=== PATIENT | male | born 1970 | race Caucasian/White ===

== ENCOUNTER 2021-01-21 00:28 | Emergency (ER) | payer BC, SELFPAY ==
--- NOTE | ~2021-01-21 | XR_ITS ---
EXAMINATION: XR hip LT 2V w AP pelvis INDICATION: Left hip pain TECHNIQUE: AP view of the pelvis and two views of the left hip are obtained. COMPARISON: None available FINDINGS: Bone alignment is normal. There is no fracture. The soft tissues are unremarkable. IMPRESSION: 1. No acute osseous abnormality. Reviewed, dictated and finalized at location A. [employer] SCI[employer] SPECIALIST
[2021-01-21 00:30] VITALS: BP 133/79; PULSE 77; RESP 16; TEMP 36.4; O2SAT 98
[2021-01-21 01:31] VITALS: BP 138/79; PULSE 73; RESP 18; O2SAT 100
--- NOTE | 2021-01-21 01:34 | ED.GENADULT ---
HPI - General Adult General Chief complaint: Extremity Injury, Lower Stated complaint: partial dislocated hip Time Seen by Provider: 01/21/21 01:02 History of Present Illness HPI narrative: Patient is a 51-year-old gentleman who presents the emergency department with chief complaint of left hip pain. Patient reports that he has history of fibromyalgia and reports that he started having pain in his left hip and left gluteal area that shoots down his leg. The patient states that he saw a chiropractor was manipulated and was told that his hip was partially dislocated. Patient denies bowel or bladder dysfunction denies paresthesias the patient reports the pain is worse with movement and improved with rest. Related Data Allergies Allergy/AdvReac Type Severity Reaction Status Date / Time No Known Allergies Allergy Verified 01/21/21 00:35 Review of Systems Review of Systems: A 10 system review of systems was completed on the patient and is negative except for what is stated in the HPI. Nursing and ancillary documentation was reviewed. Exam Narrative: GENERAL: Well-appearing, well-nourished, and in no acute distress. HEAD: Normocephalic, atraumatic. EYES: PERRLA and EOMI. ENT: Nares clear, no rhinorrhea or epistaxis. Mucous membranes moist. NECK: Supple. CHEST: Clear to auscultation. No respiratory distress. HEART: Regular rate and rhythm. No murmur heard. Normal peripheral pulses. ABDOMEN: Soft, nontender, nondistended, normal active bowel sounds. EXTREMITIES: Normal range of motion. No edema. There is tenderness to palpation of the left SI joint. There is no saddle anesthesia there is no foot drop SKIN: Warm, dry, no rash. NEURO: No focal deficits. Alert and oriented x3. PSYCH: Normal mood and affect. Course Course Emergency Course: Hip x-ray shows no evidence of fracture Vital Signs Vital signs: Vital Signs Temperature 36.4 C L 01/21/21 00:30 Pulse Rate 77 01/21/21 00:30 Respiratory Rate 16 01/21/21 00:30 Blood Pressure 133/79 01/21/21 00:30 Pulse Oximetry 98 01/21/21 00:30 Temperature 36.4 C L 01/21/21 00:30 Pulse Rate 73 01/21/21 01:31 Respiratory Rate 18 01/21/21 01:31 Blood Pressure 138/79 01/21/21 01:31 Pulse Oximetry 100 01/21/21 01:31 Medical Decision Making Vital Signs Vital Signs: Vital Signs Temperature 36.4 C L 01/21/21 00:30 Pulse Rate 77 01/21/21 00:30 Respiratory Rate 16 01/21/21 00:30 Blood Pressure 133/79 01/21/21 00:30 Pulse Oximetry 98 01/21/21 00:30 Temperature 36.4 C L 01/21/21 00:30 Pulse Rate 73 01/21/21 01:31 Respiratory Rate 18 01/21/21 01:31 Blood Pressure 138/79 01/21/21 01:31 Pulse Oximetry 100 01/21/21 01:31 Discharge Plan Discharge Clinical Impression: Acute pain of left hip, Sciatica Patient Disposition: Home, Self-Care Condition: Stable Instructions: Antibiotic Form, Sciatica (ED), Hip Pain (ED) Prescriptions: New cyclobenzaprine 10 mg tablet 10 mg PO TID PRN (Reason: muscle spasm) Qty: 21 RF: 0 methylprednisolone [Medrol (Refugio)] 4 mg tablets,dose pack See Rx Instructions PO .COMPLEX Qty: 21 RF: 0 hydrocodone-acetaminophen 5-325 mg tablet 1 tablet PO Q6H PRN (Reason: pain) 3 Days Qty: 12 RF: 0 Follow-up/Referrals: Andre,Leidy Rodriguez APRN [Primary Care Provider] - Time of Disposition: 01:48
[2021-01-21] MEDS: KETOROLAC 30 MG/ML VIAL (*BKC) IM (01:59)
[2021-01-21] MEDS: methylPREDNISolone SOD SUCC 125 MG VIAL IM (01:59)
[2021-01-21] MEDS: HYDROmorphone HCL INJ (*CRX) 1 MG/ML SYR IM (01:59)
[2021-01-21] MEDS: ORPHENADRINE CITRATE 100 MG TABLET.ER PO (02:00)
== END 2021-01-21 02:08 | disposition home or self-care (01) ==
PROVIDERS: Emergency Provider Emergency Medicine; PCP Nurse Practitioner Family
DX: M54.32 Sciatica, left side (principal); M79.7 Fibromyalgia
CPT/HCPCS: 73502; 96372; 99284; A9270; J1170; J1885; J2930

== ENCOUNTER 2021-01-23 13:19 | Emergency (ER) | payer BC, SELFPAY ==
[2021-01-23 13:49] VITALS: BP 125/81; PULSE 87; RESP 14; TEMP 36.6; O2SAT 99
--- NOTE | 2021-01-23 16:05 | ED.BACK ---
HPI - Back Pain/Injury General Chief Complaint: Back Pain/Injury Stated Complaint: L Hip and back Pain Time Seen by Provider: 01/23/21 15:52 History of Present Illness HPI Narrative: 51-year-old male presents to the emergency department for evaluation of persistent left hip and leg pain. Patient was evaluated emerge department on the for the same issue. Patient states a few days ago he began having increased left hip pain that radiated down his left leg. Patient did have follow-up with his chiropractor at this time. Patient has history of sciatica and thought that this was most likely sciatica. When he had follow-up with his chiropractor he was told that his hip was partially dislocated . In the emerge department patient was treated with cyclobenzaprine and [place] for pain control. Patient states he has been taking these medications and has had some improvement. Patient reports he also had additional follow-up with his primary care physician but she is unable to do steroid injections. Patient does have follow-up scheduled with orthopedics on 06 February. Patient return to the emerge department today complaining of persistent left hip pain and muscle spasm. Patient denies any numbness of the left leg. Patient denies any perineal numbness. Patient denies any loss of bowel control. Patient denies any difficulty starting urination. Patient's primary complaint is left hip pain and left lower leg spasms. Patient does have history of fibromyalgia. Related Data Allergies Allergy/AdvReac Type Severity Reaction Status Date / Time No Known Allergies Allergy Verified 01/23/21 15:20 Review of Systems Review of Systems: CONSTITUTIONAL: Denies fever, chills, or sweats. EYES: Denies visual changes, redness, or discharge. ENT: Denies rhinorrhea, congestion, sore throat, or otalgia. CARDIOVASCULAR: Denies chest pain, palpitations, or edema. RESPIRATORY: Denies cough or dyspnea. GASTROINTESTINAL: Denies abdominal pain, nausea, vomiting, or diarrhea. GENITOURINARY: Denies dysuria or hematuria. SKIN: Denies rash or itching. MUSCULOSKELETAL: Left lower back pain that radiates to his left hip NEUROLOGIC: Denies headache, numbness, or weakness. Does report increased tingling and muscle spasm of the left lower leg. PSYCHIATRIC: Denies anxiety or depression. [facility] Family History Family History (System 01/23/21 @ 07:53 by Liya Erazo) Mother Family history of rheumatoid arthritis Family history of diabetes mellitus in first degree relative Other Family history of cardiovascular disease Social History Social History (System 01/23/21 @ 07:53 by Liya Erazo) Smoking status: Never smoker Alcohol intake: current Exam Narrative: APPEARANCE: Well appearing, no pain in distress, well-nourished. Head normocephalic atraumatic. EYES: PERRLA/EOMI, conjunctivae very clear. NECK: Supple. No adenopathy, no masses. RESPIRATORY: Airway patent, respirations nonlabored. Clear to auscultation bilaterally, no rales, rhonchi, wheezing. CARDIOVASCULAR: Regular rate and rhythm without murmurs rubs or gallops. ABDOMINAL: Soft, nontender, nondistended, no hepatosplenomegally MUSCULOSKELETAl: Moves all extremities. Strength/ROM intact, No edema, No calf tenderness. Range of motion of left leg limited secondary to pain. NEURO: Alert. Cranial nerves II through XII intact. Good gait. Good coordination. Neurologically intact with no numbness SKIN: Warm, dry. Normal Color PSYCHIATRIC: Normal affect/mood, normal interaction with parents. Course Course Emergency Course: Patient was updated on the diagnosis and treatment plan. Patient was advised to continue taking his cyclobenzaprine and his [place]. Patient was advised not to take excessive Tylenol along with his hydrocodone. Patient has previously been on gabapentin so I will trial this medication for him. Patient was in agreement with this. Patient will also be given a Medrol Dosepak since he fell
[2021-01-23] MEDS: GABAPENTIN 300 MG CAPSULE PO (16:39)
== END 2021-01-23 16:55 | disposition home or self-care (01) ==
PROVIDERS: Emergency Provider Emergency Medicine; PCP Nurse Practitioner Family
DX: M62.838 Other muscle spasm (principal); M54.32 Sciatica, left side
CPT/HCPCS: 99283; A9270

== ENCOUNTER 2021-07-17 10:51 | Outpatient (RCR) | payer OTHER, SELFPAY ==
[2021-07-17] MEDS: ACETAMINOPHEN 325 MG TABLET 650 MG PO (12:51)
[2021-07-17] MEDS: diphenhydrAMINE HCl CAP 25 MG CAPSULE PO (12:52)
[2021-07-17] MEDS: FAMOTIDINE 20 MG TABLET PO (12:52)
[2021-07-17 12:53] VITALS: BP 116/68; PULSE 76; RESP 20; TEMP 36.4; O2SAT 97
[2021-07-17] MEDS: BEBTELOVIMAB 175 MG/2 ML VIAL IV PUSH (13:12)
[2021-07-17 13:54] VITALS: BP 120/80; PULSE 72; RESP 20; O2SAT 98
== END 2021-07-17 16:00 ==
LOC: AMCINF 10:51
PROVIDERS: PCP Clinical Nurse Specialist; Referring Provider Clinical Nurse Specialist; Visit Provider Internal Medicine Hematology & Oncology
DX: U07.1 COVID-19 (principal)
CPT/HCPCS: A9270; M0222; Q0222

== ENCOUNTER 2021-07-23 13:21 | Outpatient (CLI) | payer OTHER, SELFPAY ==
--- NOTE | ~2021-07-23 | US_ITS ---
EXAMINATION: US soft tissue groin LT DATE: 07/23/2021 14:25 INDICATION: Left lower quadrant abdominal pain. Prior left inguinal hernia repair. TECHNIQUE: Multiple grayscale and Doppler ultrasound images of the left inguinal region of concern we re obtained. COMPARISON: None FINDINGS/IMPRESSION: Small amount of fat is seen within the left inguinal canal which does not appear to significantly ken nge with Valsalva. Differential would include lipomatosis within the inguinal canal or small fat-cont aining left inguinal hernia, either residual post prior repair or recurrent. Reviewed, dictated and finalized at location A.
== END 2021-07-23 13:22 | disposition home or self-care (01) ==
LOC: ANHIMG 13:24
PROVIDERS: PCP Clinical Nurse Specialist; Visit Provider Surgery
DX: R10.32 Left lower quadrant pain (principal); K40.90 Unilateral inguinal hernia, without obstruction or gangrene, not specified as recurrent
CPT/HCPCS: 76882

== ENCOUNTER 2021-08-02 09:04 | Outpatient (CLI) | payer OTHER, SELFPAY ==
--- NOTE | 2021-08-02 11:15 | NEURO_ITS ---
Impression: # Complains of restless legs. # Normal nerve conduction study including F-waves. # Normal needle/EMG exam without myotonia, myopathic pattern or fibs. # Clinical correlation recommended. Nerve Conduction Studies Anti Sensory Summary Table Stim Site NR Peak (ms) P-T Amp (?V) Site1 Site2 Delta-P (ms) Dist (cm) Jesse (m/s) Left Sup Fibular Anti Sensory (Ant Lat Mall) 14 cm 3.4 26.1 14 cm Ant Lat Mall 3.4 16.0 47 Right Sup Fibular Anti Sensory (Ant Lat Mall) 14 cm 3.6 6.1 14 cm Ant Lat Mall 3.6 16.0 44 Left Sural Anti Sensory (Lat Mall) Calf 4.0 12.8 Calf Lat Mall 4.0 16.0 40 Right Sural Anti Sensory (Lat Mall) Calf 4.0 18.7 Calf Lat Mall 4.0 16.0 40 Motor Summary Table Stim Site NR Onset (ms) O-P Amp (mV) Site1 Site2 Delta-0 (ms) Dist (cm) Jesse (m/s) Left Peroneal Motor (Vastus Med) Ankle 4.5 1.2 Popit Ankle 8.0 41.0 51 Popit 12.5 1.1 Right Peroneal Motor (Vastus Med) Ankle 4.8 1.9 Popit Ankle 7.5 36.0 48 Popit 12.3 1.9 Left Tibial Motor (Abd Alva Brev) Ankle 4.7 5.1 Knee Ankle 8.0 39.0 49 Knee 12.7 3.8 Right Tibial Motor (Abd Alva Brev) Ankle 4.4 2.0 Knee Ankle 8.3 40.0 48 Knee 12.7 2.8 F Wave Studies NR F-Lat (ms) L-R F-Lat (ms) Left Peroneal (Mrkrs) (EDB) 48.28 0.31 Right Peroneal (Mrkrs) (EDB) 48.59 0.31 Left Tibial (Mrkrs) (Abd Hallucis) 48.99 0.86 Right Tibial (Mrkrs) (Abd Hallucis) 49.84 0.86 EMG Side Muscle Nerve Root Ins Act Fibs Amp Dur Recrt Comment Right AntTibialis Dp Br Fibular L4-5 Nml Nml Nml Nml Nml Right Gastroc Tibial S1-2 Nml Nml Nml Nml Nml Right Fibularis Long Sup Br Fibular L5-S1 Nml Nml Nml Nml Nml Right Flex Dig Long Tibial L5-S2 Nml Nml Nml Nml Nml Right Ext Dig Brev Dp Br Fibular L5, S1 Nml Nml Nml Nml Nml Left AntTibialis Dp Br Fibular L4-5 Nml Nml Nml Nml Nml Left Gastroc Tibial S1-2 Nml Nml Nml Nml Nml Left Fibularis Long Sup Br Fibular L5-S1 Nml Nml Nml Nml Nml Left Flex Dig Long Tibial L5-S2 Nml Nml Nml Nml Nml Left Ext Dig Brev Dp Br Fibular L5, S1 Nml Nml Nml Nml Nml Right ExtHallLong Dp Br Fibular L5, S1 Nml Nml Nml Nml Nml Right Ext Dig Long Dp Br Fibular L5-S1 Nml Nml Nml Nml Nml Right QuadratusFem QuadFemoris L4-5, S1 Nml Nml Nml Nml Nml Left ExtHallLong Dp Br Fibular L5, S1 Nml Nml Nml Nml Nml Left Ext Dig Long Dp Br Fibular L5-S1 Nml Nml Nml Nml Nml Left QuadratusFem QuadFemoris L4-5, S1 Nml Nml Nml Nml Nml MTDD
== END 2021-08-02 09:05 | disposition home or self-care (01) ==
LOC: ANHNEURO 09:05
PROVIDERS: PCP Clinical Nurse Specialist; Visit Provider Clinical Nurse Specialist
DX: G25.81 Restless legs syndrome (principal)
CPT/HCPCS: 72192; 95886; 95910

== ENCOUNTER 2021-08-02 14:28 | Outpatient (CLI) | payer OTHER, SELFPAY ==
--- NOTE | ~2021-08-02 | CT_ITS ---
EXAMINATION: CT pelvis wo con DATE: 08/02/2021 14:58 INDICATION: Left lower quadrant pain TECHNIQUE: Computed tomography (CT) of the pelvis was performed without intravenous contrast. The dos e-length product (DLP) was 483.87 mGy-cm. Automated exposure control and iterative reconstruction gregg hnique were employed. COMPARISON: None FINDINGS: There are changes of prior left inguinal hernia repair. No recurrent hernia is identified. There are no pathologically enlarged pelvic lymph nodes. There is no free intraperitoneal gas or evid ence of bowel obstruction. There is mild lumbar spondylosis. IMPRESSION: 1. No CT correlate for the patient's symptoms. Reviewed, dictated and finalized at location F.
== END 2021-08-02 14:29 | disposition home or self-care (01) ==
PROVIDERS: PCP Clinical Nurse Specialist; Visit Provider Surgery
DX: R10.32 Left lower quadrant pain (principal)
CPT/HCPCS: 72192

== ENCOUNTER 2021-09-10 09:56 | Outpatient (CLI) | payer OTHER, SELFPAY ==
[2021-09-10 11:05] LABS: Basophils Absolute Auto 0.1 K/mm3 (0.0-0.1); Basophils Percent Auto 0.4 % (0.2-1.2); Eosinophils Absolute Auto 0.2 K/mm3 (0-0.3); Eosinophils Percent Auto 1.6 % (0-4.4); Hematocrit 45.6 % (42.0-52.0); Immature Granulocyte Absolute 0.05 K/mm3 (0.00-0.031); Immature Granulocyte Percent A 0.4 % (0-0.5); Lymphocytes Absolute Auto 5.02 K/mm3 (0.9-3.2); Lymphocytes Percent Auto 42.3 % (18.3-44.2); Mean Corpuscular HGB Conc 32.9 g/dl (32-36); Mean Corpuscular Volume 100.2 fl (80-100); Monocytes Absolute Auto 0.8 K/mm3 (0.1-0.6); Neutrophils Absolute Auto 5.7 K/mm3 (1.3-6.7); Neutrophils Percent Auto 48.3 % (45.5-73.1); Platelet Count Result 284 k/mm3 (150-375); Red Blood Count 4.55 M/mm3 (4.6-6.20); Red Cell Distribution Width 14.1 % (11.5-14.5); White Blood Count 11.9 K/mm3 (4.5-10.0)
[2021-09-10 11:17] LABS: Alanine Aminotransferase 13 U/L (6-50); Albumin Level 4.3 g/dL (3.5-5.1); Alkaline Phosphatase 47 U/L (38-126); Anion Gap 8 mmol/L (8-16); Aspartate Amino Transferase 22 U/L (17-59); Bilirubin,Total 0.3 mg/dL (0.2-1.3); Blood Urea Nitrogen 17 mg/dL (9-20); CRP < 0.5 mg/dL (<1.0); Calcium 9.1 mg/dL (8.4-10.2); Carbon Dioxide 29 mmol/L (22-30); Chloride 98 mmol/L (98-107); Cholesterol 186 mg/dL (0-200); Estimated Glomerular Filt Rate > 60; Glucose 92 mg/dL (65-110); HDL Direct 48 mg/dL; Magnesium 2.2 mg/dL (1.6-2.3); Sodium 135 mmol/L (137-145); Triglycerides 170 mg/dL (<150)
[2021-09-10 11:31] LABS: Iron 92 ug/dL (49-181)
[2021-09-10 11:37] LABS: Rheumatoid Factor < 8.6 IU/ML (<12)
[2021-09-10 11:37] LABS: LDL Cholesterol Direct 86 mg/dL
[2021-09-10 11:41] LABS: Percent Iron Saturation 25 % (20-50)
[2021-09-10 12:21] LABS: Folic Acid 9.6 ng/mL (2.76->20)
[2021-09-17 09:30] LABS: ANA Cascade Screen Negative (Negative)
== END 2021-09-10 09:57 | disposition home or self-care (01) ==
LOC: ANHLAB 09:58
PROVIDERS: PCP Clinical Nurse Specialist; Visit Provider Clinical Nurse Specialist
DX: D50.9 Iron deficiency anemia, unspecified (principal); M79.10 Myalgia, unspecified site; Z13.220 Encounter for screening for lipoid disorders; G25.81 Restless legs syndrome; D64.9 Anemia, unspecified
CPT/HCPCS: 36415; 80053; 80061; 82607; 82728; 82746; 83540; 83550; 83735; 85025; 86038; 86140; 86430

== ENCOUNTER 2021-12-21 08:12 | Outpatient (CLI) | payer OTHER, SELFPAY ==
[2021-12-21 18:18] LABS: Iron 63 ug/dL (49-181)
[2021-12-21 18:25] LABS: Anion Gap 10 mmol/L (8-16); Blood Urea Nitrogen 16 mg/dL (9-20); Carbon Dioxide 27 mmol/L (22-30); Chloride 102 mmol/L (98-107); Estimated Glomerular Filt Rate > 60; Glucose 92 mg/dL (65-110); Potassium 4.3 mmol/L (3.4-5.0); Sodium 139 mmol/L (137-145)
[2021-12-21 18:28] LABS: Percent Iron Saturation 18 % (20-50)
[2021-12-21 18:33] LABS: Basophils Absolute Auto 0.1 K/mm3 (0.0-0.1); Basophils Percent Auto 0.6 % (0.2-1.2); Eosinophils Absolute Auto 0.3 K/mm3 (0-0.3); Eosinophils Percent Auto 2.3 % (0-4.4); Immature Granulocyte Absolute 0.04 K/mm3 (0.00-0.031); Immature Granulocyte Percent A 0.4 % (0-0.5); Lymphocytes Absolute Auto 3.39 K/mm3 (0.9-3.2); Lymphocytes Percent Auto 31.6 % (18.3-44.2); Mean Corpuscular HGB Conc 32.6 g/dl (32-36); Mean Corpuscular Hemoglobin 32.8 pg (26-34); Mean Corpuscular Volume 100.7 fl (80-100); Mean Platelet Volume 9.5 fl (7.4-10.4); Monocytes Absolute Auto 0.8 K/mm3 (0.1-0.6); Monocytes Percent Auto 7.5 % (2.6-8.5); Neutrophils Absolute Auto 6.2 K/mm3 (1.3-6.7); Neutrophils Percent Auto 57.6 % (45.5-73.1); Platelet Count Result 286 k/mm3 (150-375); Red Blood Count 4.57 M/mm3 (4.6-6.20); Red Cell Distribution Width 13.7 % (11.5-14.5); White Blood Count 10.7 K/mm3 (4.5-10.0)
[2021-12-26 13:44] LABS: Testosterone Free 72.9 pg/mL (35.0-155.0); Testosterone Total 688 ng/dL (250-1100)
== END 2021-12-21 08:13 | disposition home or self-care (01) ==
LOC: ANHGOSHLAB 08:14
PROVIDERS: PCP Internal Medicine; Visit Provider Clinical Nurse Specialist
DX: R53.83 Other fatigue (principal); D72.829 Elevated white blood cell count, unspecified; D50.9 Iron deficiency anemia, unspecified; M79.7 Fibromyalgia
CPT/HCPCS: 36415; 80048; 82607; 82728; 83540; 83550; 84402; 84403; 84443; 85025

== ENCOUNTER 2022-04-29 15:43 | Outpatient (CLI) | payer OTHER, SELFPAY ==
[2022-04-29 16:53] LABS: Basophils Percent Auto 0.6 % (0.2-1.2); Eosinophils Absolute Auto 0.2 K/mm3 (0-0.3); Eosinophils Percent Auto 3.4 % (0-4.4); Hematocrit 46.2 % (42.0-52.0); Immature Granulocyte Absolute 0.01 K/mm3 (0.00-0.031); Immature Granulocyte Percent A 0.1 % (0-0.5); Lymphocytes Absolute Auto 3.27 K/mm3 (0.9-3.2); Lymphocytes Percent Auto 48.6 % (18.3-44.2); Mean Corpuscular HGB Conc 34.6 g/dl (32-36); Mean Corpuscular Hemoglobin 32.7 pg (26-34); Mean Corpuscular Volume 94.5 fl (80-100); Mean Platelet Volume 8.6 fl (7.4-10.4); Monocytes Absolute Auto 0.6 K/mm3 (0.1-0.6); Monocytes Percent Auto 8.2 % (2.6-8.5); Neutrophils Absolute Auto 2.6 K/mm3 (1.3-6.7); Neutrophils Percent Auto 39.1 % (45.5-73.1); Platelet Count Result 266 k/mm3 (150-375); Red Blood Count 4.89 M/mm3 (4.6-6.20); Red Cell Distribution Width 12.9 % (11.5-14.5); White Blood Count 6.7 K/mm3 (4.5-10.0)
[2022-04-29 17:01] LABS: Alanine Aminotransferase 21 U/L (6-50); Albumin Level 4.8 g/dL (3.5-5.1); Alkaline Phosphatase 53 U/L (38-126); Anion Gap 6 mmol/L (8-16); Aspartate Amino Transferase 32 U/L (17-59); Bilirubin,Total 0.7 mg/dL (0.2-1.3); Blood Urea Nitrogen 18 mg/dL (9-20); Calcium 9.1 mg/dL (8.4-10.2); Carbon Dioxide 31 mmol/L (22-30); Chloride 102 mmol/L (98-107); Estimated Glomerular Filt Rate > 60; Glucose 100 mg/dL (65-110); Potassium 4.2 mmol/L (3.4-5.0); Sodium 139 mmol/L (137-145)
== END 2022-04-29 15:44 | disposition home or self-care (01) ==
LOC: ANHLAB 15:45
PROVIDERS: PCP Internal Medicine; Visit Provider Clinical Nurse Specialist
DX: D72.829 Elevated white blood cell count, unspecified (principal)
CPT/HCPCS: 36415; 80053; 85025

== ENCOUNTER 2023-04-01 08:52 | Outpatient (CLI) | payer OTHER, SELFPAY ==
[2023-04-01 14:22] LABS: Basophils Absolute Auto 0.1 K/mm3 (0.0-0.1); Basophils Percent Auto 0.6 % (0.2-1.2); Eosinophils Absolute Auto 0.2 K/mm3 (0-0.3); Eosinophils Percent Auto 1.9 % (0-4.4); Hematocrit 48.5 % (42.0-52.0); Hemoglobin 15.8 g/dL (14.0-18.0); Immature Granulocyte Absolute 0.02 K/mm3 (0.00-0.031); Immature Granulocyte Percent A 0.3 % (0-0.5); Lymphocytes Absolute Auto 3.24 K/mm3 (0.9-3.2); Lymphocytes Percent Auto 41.6 % (18.3-44.2); Mean Corpuscular HGB Conc 32.6 g/dl (32-36); Mean Corpuscular Hemoglobin 32.1 pg (26-34); Mean Corpuscular Volume 98.6 fl (80-100); Mean Platelet Volume 9.2 fl (7.4-10.4); Monocytes Absolute Auto 0.7 K/mm3 (0.1-0.6); Monocytes Percent Auto 8.9 % (2.6-8.5); Neutrophils Absolute Auto 3.6 K/mm3 (1.3-6.7); Neutrophils Percent Auto 46.7 % (45.5-73.1); Platelet Count Result 289 k/mm3 (150-375); Red Blood Count 4.92 M/mm3 (4.6-6.20); Red Cell Distribution Width 13.2 % (11.5-14.5); White Blood Count 7.8 K/mm3 (4.5-10.0)
[2023-04-01 14:44] LABS: Alanine Aminotransferase 16 U/L (6-50); Albumin Level 4.7 g/dL (3.5-5.1); Alkaline Phosphatase 64 U/L (38-126); Anion Gap 9 mmol/L (8-16); Aspartate Amino Transferase 68 U/L (17-59); Bilirubin,Total 0.6 mg/dL (0.2-1.3); Blood Urea Nitrogen 14 mg/dL (9-20); Calcium 9.6 mg/dL (8.4-10.2); Carbon Dioxide 28 mmol/L (22-30); Chloride 100 mmol/L (98-107); Cholesterol 258 mg/dL (0-200); Estimated Glomerular Filt Rate > 60; Glucose 96 mg/dL (65-110); HDL Direct 34 mg/dL; Magnesium 2.3 mg/dL (1.6-2.3); Potassium 4.1 mmol/L (3.4-5.0); Sodium 137 mmol/L (137-145); Triglycerides 161 mg/dL (<150)
[2023-04-01 14:54] LABS: Iron 113 ug/dL (49-181)
[2023-04-01 14:57] LABS: LDL Cholesterol Direct 154 mg/dL; Transferrin 297 mg/dL (206-381)
[2023-04-01 15:14] LABS: Percent Iron Saturation 32 % (20-50)
[2023-04-01 15:25] LABS: Free T4 Free Thyroxine 1.06 ng/mL (0.78-2.19)
[2023-04-01 15:45] LABS: Hemoglobin A1C 6.1 % (<5.7)
[2023-04-01 15:52] LABS: Vitamin D 25 Hydroxy > 126.0 ng/mL
== END 2023-04-01 08:53 | disposition home or self-care (01) ==
LOC: ANHGOSHLAB 08:54
PROVIDERS: PCP Internal Medicine; Visit Provider Family Medicine
DX: D64.9 Anemia, unspecified (principal); E55.9 Vitamin D deficiency, unspecified; R53.83 Other fatigue; R73.9 Hyperglycemia, unspecified; Z13.220 Encounter for screening for lipoid disorders; Z12.5 Encounter for screening for malignant neoplasm of prostate; R25.2 Cramp and spasm
CPT/HCPCS: 36415; 80053; 80061; 82306; 82728; 83036; 83540; 83550; 83735; 84153; 84439; 84443; 84466; 85025; G0103

== ENCOUNTER 2023-09-24 00:39 | Day surgery (SDC) | payer OTHER, SELFPAY ==
[2023-06-17 10:07] VITALS: BMI 26.6
[2023-09-04 13:49] VITALS: BMI 26.6
[2023-09-24 09:27] VITALS: BP 133/94; PULSE 102; RESP 20; TEMP 36.2; O2SAT 99; BMI 25.3
--- NOTE | 2023-09-24 09:45 | SUR.PREOP ---
Patient stated he has been taking Amoxicillin for 1 week due to jaw infection pending surgery. MD aware and okay to proceed with scheduled procedure.
[2023-09-24] MEDS: LACTATED RINGERS 1,000 ML 150 ML IV CONT (09:52)
--- NOTE | 2023-09-24 10:11 | WPDANESEPPF ---
Anes - Initial Pre Proc Eval Procedure: Operation Date: 09/24/23 10:30 Proposed Procedures p Screening Colonoscopy - Sajan Jin MD Date/Time: 09/24/23 10:11 Surgeon: Sajan Jin MD Pre Op Diagnosis: Screening neoplasm of colon Patient Data Age: 53 Gender: M Height: 1.75 m Weight: 77.9 kg Last Vital Signs Temp 97.2 F L 09/24/23 09:27 Pulse 102 H 09/24/23 09:27 Resp 20 09/24/23 09:27 BP 133/94 H 09/24/23 09:27 Pulse Ox 99 09/24/23 09:27 O2 Del Method Room Air 09/24/23 09:27 Allergies Allergy/AdvReac Type Severity Reaction Status Date / Time No Known Allergies Allergy Verified 09/24/23 09:36 Home Medications Medication Instructions Recorded Confirmed Type multivitamin 1 tablet PO DAILY 06/18/21 09/19/23 History ubidecarenone-omega 3-vit E 25 1 cap PO DAILY 06/19/21 09/19/23 History mg-150 (90-60) mg-200 unit capsule (Co E-95-Mhulxfm E-Fish Oil) pregabalin 150 mg capsule (Lyrica) 150 mg PO BID 01/29/22 09/19/23 History cyclobenzaprine 5 mg tablet 10 mg PO TID PRN muscle spasm #40 04/18/22 09/19/23 Rx tabs pramipexole 0.125 mg tablet 0.375 mg PO .COMPLEX #270 tabs 04/02/23 09/19/23 Rx baclofen 10 mg tablet 10 mg PO HS PRN Pain 06/17/23 09/19/23 History eszopiclone 3 mg tablet (Lunesta) 3 mg PO QHS #30 tabs 07/30/23 09/19/23 Rx duloxetine 60 mg capsule,delayed 60 mg PO DAILY #90 caps 09/03/23 09/19/23 Rx release amoxicillin 500 mg-potassium 1 tablet PO DAILY acute recurrent 09/19/23 09/19/23 Rx clavulanate 125 mg tablet maxillary sinusitis #20 tabs (Augmentin) Patient hx anesthesia problems: none Family hx anesthesia problems: none Results Review: All pre-operative results and documents have been reviewed as part of the pre-operative evaluation. [facility] Past Medical History Medical History Abdominal hernia Anemia Arthritis BMI 26.0-26.9,adult COVID-19 Encounter to establish care Fatigue Fibromyalgia Genetic testing Herniated disc History of back problems Hypersomnia Iron deficiency anemia Left groin pain Leukocytosis Myalgia Restless leg syndrome Screening for lipoid disorders Surgical History Surgical History H/O adenoidectomy H/O hernia repair History of left inguinal hernia repair Family History Family History Mother Family history of rheumatoid arthritis Diabetes mellitus Father Asthma Hypertension Heart problem Other Family history of cardiovascular disease Social History Social History Smoking packs per day: 1 Smoking cigarettes per day: 20.0 Years smoked: 10 Smoking pack-years: 10.00 Smoking status: Former smoker Tobacco type: cigarettes Alcohol intake: current Substance use: current Substance use type: marijuana Other substance usage details: INTERMITTENT USE FOR INSOMNIA - GUMMIES Do You Feel Safe in your Home?: Yes Lack of Transportation: No Lack of Food: Never True Current Housing: I Have Housing Concerned About Future Housing: YES Difficulty Paying Gas/Electric Bills: YES Difficulty Paying for Meds: No Currently Unemployed: No Education: Associate Degree Difficulty w/ Childcare or Family Care: No Living arrangements: with family Occupation/Education: occupation 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
--- NOTE | 2023-09-24 11:05 | PM.HPGS ---
History of Present Illness History of Present Illness Consent: Risks, benefits, and alternatives have been discussed and questions answered. Patient agrees to proceed with procedure. Chief complaint: Screening neoplasm of colon Narrative: Vega Nj is a 53 year old male here for first screening colonoscopy Review of Systems Review of Systems: All systems reviewed & are unremarkable except as noted in HPI and below PMFSH Past Medical History Medical History Abdominal hernia Anemia Arthritis BMI 26.0-26.9,adult COVID-19 Encounter to establish care Fatigue Fibromyalgia Genetic testing Herniated disc History of back problems Hypersomnia Iron deficiency anemia Left groin pain Leukocytosis Myalgia Restless leg syndrome Screening for lipoid disorders Surgical History Surgical History H/O adenoidectomy H/O hernia repair History of left inguinal hernia repair Family History Family History Mother Family history of rheumatoid arthritis Diabetes mellitus Father Asthma Hypertension Heart problem Other Family history of cardiovascular disease Social History Social History Smoking packs per day: 1 Smoking cigarettes per day: 20.0 Years smoked: 10 Smoking pack-years: 10.00 Smoking status: Former smoker Tobacco type: cigarettes Alcohol intake: current Substance use: current Substance use type: marijuana Other substance usage details: INTERMITTENT USE FOR INSOMNIA - GUMMIES Do You Feel Safe in your Home?: Yes Lack of Transportation: No Lack of Food: Never True Current Housing: I Have Housing Concerned About Future Housing: YES Difficulty Paying Gas/Electric Bills: YES Difficulty Paying for Meds: No Currently Unemployed: No Education: Associate Degree Difficulty w/ Childcare or Family Care: No Living arrangements: with family Occupation/Education: occupation 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 Spiritual care concerns: No Agree to blood products: Yes Meds Home Medications and Allergies Home Medications Medication Instructions Recorded Confirmed Type multivitamin 1 tablet PO DAILY 06/18/21 09/24/23 History ubidecarenone-omega 3-vit E 25 1 cap PO DAILY 06/19/21 09/24/23 History mg-150 (90-60) mg-200 unit capsule (Co L-24-[place] E-Fish Oil) pregabalin 150 mg capsule (Lyrica) 150 mg PO BID 01/29/22 09/24/23 History cyclobenzaprine 5 mg tablet 10 mg PO TID PRN muscle spasm #40 04/18/22 09/24/23 Rx tabs pramipexole 0.125 mg tablet 0.375 mg PO .COMPLEX #270 tabs 04/02/23 09/24/23 Rx baclofen 10 mg tablet 10 mg PO HS PRN Pain 06/17/23 09/24/23 History eszopiclone 3 mg tablet (Lunesta) 3 mg PO QHS #30 tabs 07/30/23 09/24/23 Rx duloxetine 60 mg capsule,delayed 60 mg PO DAILY #90 caps 09/03/23 09/24/23 Rx release amoxicillin 500 mg-potassium 1 tablet PO DAILY acute recurrent 09/19/23 09/24/23 Rx clavulanate 125 mg tablet maxillary sinusitis #20 tabs (Augmentin) Allergies Allergy/AdvReac Type Severity Reaction Status Date / Time No Known Allergies Allergy Verified 09/24/23 09:36 Vital Signs Vital Signs - 24 hr 09/24/23 09:27 Temperature 97.2 F L Pulse Rate 102 H Respiratory Rate 20 Blood Pressure 133/94 H Pulse Oximetry 99 Oxygen Delivery Room Air Exam Const: General: comfortable and no acute distress HENMT: Face/Nose/Sinus: Normal nares present Eyes: General: appearance normal, both eyes and all related structures Neck: Neck: no JVD Resp: Auscultation: clear to auscultation bilaterally Cardio: Rate: regular rate Rhythm: regular rhythm GI: Inspection: non-distended GI Palp: Yes Soft to palpation Skin: General
[2023-09-24 11:22] VITALS: BP 115/77; PULSE 90; RESP 20; O2SAT 97
[2023-09-24 11:32] VITALS: BP 110/80; PULSE 81; RESP 20; O2SAT 98
[2023-09-24 11:42] VITALS: BP 117/85; PULSE 78; RESP 20; O2SAT 98
== END 2023-09-24 11:45 | disposition home or self-care (01) ==
PROVIDERS: PCP Internal Medicine; Visit Provider Internal Medicine Gastroenterology
PROC: 0DJD8ZZ Inspection of Lower Intestinal Tract, Via Natural or Artificial Opening Endoscopic (ICD-10-PCS; CPT 45378; principal; 2023-09-24 10:30)
DX: Z12.11 Encounter for screening for malignant neoplasm of colon (principal); K64.8 Other hemorrhoids; G25.81 Restless legs syndrome; M79.7 Fibromyalgia; Z87.891 Personal history of nicotine dependence; F12.90 Cannabis use, unspecified, uncomplicated
CPT/HCPCS: 45378; J2704; J7120

== ENCOUNTER 2023-09-25 07:58 | Outpatient (CLI) | payer OTHER, SELFPAY ==
--- NOTE | ~2023-09-25 | CT_ITS ---
EXAMINATION: CT sinus wo con DATE: 09/25/2023 08:18 INDICATION: Chronic sinus infections. 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 TECHNIQUE: Computed tomography (CT) of the paranasal sinuses was performed without intravenous contra st. Iterative reconstruction technique was employed. The dose-length product was 216.25 mGy-cm. COMPARISON: None FINDINGS: There is mucosal thickening in the frontal sinuses, worst in the frontal recesses. There is moderate mucosal thickening in the ethmoid sinuses and mild mucosal thickening in the sphenoid and m axillary sinuses. There is leftward deviation of the nasal septum. The ostiomeatal units are patent. There are bilateral Garcia cells. IMPRESSION: 1. Mucosal thickening in the paranasal sinuses. 2. Leftward deviation of the nasal septum. Reviewed, dictated and finalized at location A.
== END 2023-09-25 07:59 | disposition home or self-care (01) ==
LOC: ANHIMG 08:01
PROVIDERS: PCP Internal Medicine; Visit Provider Otolaryngology
DX: J32.0 Chronic maxillary sinusitis (principal); J01.01 Acute recurrent maxillary sinusitis; J34.2 Deviated nasal septum
CPT/HCPCS: 70486

== ENCOUNTER 2023-10-02 09:47 | Outpatient (CLI) | payer OTHER, SELFPAY ==
--- NOTE | 2023-10-23 09:55 | WPDHOMESLEEP ---
Sleep Study - Home Unattended Date of Study: 10/02/23 Ordering Provider: She Dior DO Interpreting Provider: She Dior DO Home Sleep Study Type: Watch PAT Height: 1.75 m Weight: 81.647 kg Body Mass Index: 26.6 Neck Circumference (inches): 15 Reason for Sleep Study Insomnia Sleep History The sleep history questionnaire was unavailable during time of sleep study interpretation. [facility] Past Medical History Medical History Abdominal hernia Anemia Arthritis BMI 26.0-26.9,adult COVID-19 Encounter to establish care Fatigue Fibromyalgia Genetic testing Herniated disc History of back problems Hypersomnia Iron deficiency anemia Left groin pain Leukocytosis Myalgia Restless leg syndrome Screening for lipoid disorders Surgical History Surgical History H/O adenoidectomy H/O hernia repair History of left inguinal hernia repair Family History Family History Mother Family history of rheumatoid arthritis Diabetes mellitus Father Asthma Hypertension Heart problem Other Family history of cardiovascular disease Social History Social History Smoking packs per day: 1 Smoking cigarettes per day: 20.0 Years smoked: 10 Smoking pack-years: 10.00 Smoking status: Former smoker Tobacco type: cigarettes Alcohol intake: current Substance use: current Substance use type: marijuana Other substance usage details: INTERMITTENT USE FOR INSOMNIA - GUMMIES Do You Feel Safe in your Home?: Yes Lack of Transportation: No Lack of Food: Never True Current Housing: I Have Housing Concerned About Future Housing: YES Difficulty Paying Gas/Electric Bills: YES Difficulty Paying for Meds: No Currently Unemployed: No Education: Associate Degree Difficulty w/ Childcare or Family Care: No Living arrangements: with family Occupation/Education: occupation 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 Spiritual care concerns: No Agree to blood products: Yes Medications Home Medications Medication Instructions Recorded Confirmed Type multivitamin 1 tablet PO DAILY 06/18/21 10/15/23 History ubidecarenone-omega 3-vit E 25 1 cap PO DAILY 06/19/21 10/15/23 History mg-150 (90-60) mg-200 unit capsule (Co O-43-Xdoschj E-Fish Oil) pregabalin 150 mg capsule (Lyrica) 150 mg PO BID 01/29/22 10/15/23 History cyclobenzaprine 5 mg tablet 10 mg PO TID PRN muscle spasm #40 04/18/22 10/15/23 Rx tabs pramipexole 0.125 mg tablet 0.375 mg PO .COMPLEX #270 tabs 04/02/23 10/15/23 Rx baclofen 10 mg tablet 10 mg PO HS PRN Pain 06/17/23 10/15/23 History eszopiclone 3 mg tablet (Lunesta) 3 mg PO QHS #30 tabs 07/30/23 10/15/23 Rx duloxetine 60 mg capsule,delayed 60 mg PO DAILY #90 caps 09/03/23 10/15/23 Rx release Sleep Procedure The sleep study was completed using YuMeT a technically adequate device with seven channels: peripheral arterial tone, actigraphy, body position, snore, respiratory movement, pulse oximetry, sleep staging, and heart rate. Prior to using the device, the patient received verbal and written instructions for its application and was provided with the help desk phone number for additional telephonic instruction with 24-hour availability of qualified personnel to answer questions. The study was scored using CMS guidelines. Sleep Architecture The total recording time is 4 hrs, 6 min. The total sleep time is 3 hrs, 0 min. Sleep latency is 16 minutes. REM latency is 99 minutes. The patient had 6 episodes of waking. Sleep architecture shows 25.5% deep sleep, 57.9% light sleep, and (as % Total Sleep Time) showed NREM (Light 57.9%; Deep 25.5%), and a 16.6% stage REM. The patient spent 21.9% of t
[2023-10-23 10:03] VITALS: BMI 26.6
== END 2023-10-03 13:50 | disposition home or self-care (01) ==
LOC: ANHCSM 09:48
PROVIDERS: PCP Internal Medicine; Visit Provider Family Medicine
DX: G47.00 Insomnia, unspecified (principal); G47.30 Sleep apnea, unspecified
CPT/HCPCS: 95800

== ENCOUNTER 2023-10-15 10:37 | Outpatient (CLI) | payer OTHER, SELFPAY ==
[2023-10-15 19:46] LABS: Basophils Percent Auto 0.6 % (0.2-1.2); Eosinophils Absolute Auto 0.5 K/mm3 (0-0.3); Eosinophils Percent Auto 6.6 % (0-4.4); Hematocrit 43.9 % (42.0-52.0); Immature Granulocyte Absolute 0.01 K/mm3 (0.00-0.031); Immature Granulocyte Percent A 0.1 % (0-0.5); Lymphocytes Absolute Auto 3.11 K/mm3 (0.9-3.2); Lymphocytes Percent Auto 44.3 % (18.3-44.2); Mean Corpuscular HGB Conc 34.2 g/dl (32-36); Mean Corpuscular Hemoglobin 32.5 pg (26-34); Mean Platelet Volume 10.3 fl (7.4-10.4); Monocytes Absolute Auto 0.6 K/mm3 (0.1-0.6); Monocytes Percent Auto 7.8 % (2.6-8.5); Neutrophils Absolute Auto 2.9 K/mm3 (1.3-6.7); Neutrophils Percent Auto 40.6 % (45.5-73.1); Platelet Count Result 265 k/mm3 (150-375); Red Blood Count 4.62 M/mm3 (4.6-6.20); Red Cell Distribution Width 13.2 % (11.5-14.5)
[2023-10-15 21:23] LABS: Alanine Aminotransferase 17 U/L (6-50); Albumin Level 4.4 g/dL (3.5-5.1); Alkaline Phosphatase 59 U/L (38-126); Anion Gap 9 mmol/L (4-12); Aspartate Amino Transferase 35 U/L (17-59); Bilirubin,Total 0.5 mg/dL (0.2-1.3); Blood Urea Nitrogen 15 mg/dL (9-20); Calcium 9.2 mg/dL (8.4-10.2); Carbon Dioxide 28 mmol/L (22-30); Chloride 101 mmol/L (98-107); Estimated Glomerular Filt Rate > 60; Glucose 94 mg/dL (65-110); Potassium 4.4 mmol/L (3.4-5.0); Sodium 138 mmol/L (137-145)
== END 2023-10-15 10:38 | disposition home or self-care (01) ==
LOC: ANHGOSHLAB 10:38
PROVIDERS: PCP Clinical Nurse Specialist; Visit Provider Nurse Practitioner
DX: E16.2 Hypoglycemia, unspecified (principal); J32.4 Chronic pansinusitis; G47.00 Insomnia, unspecified
CPT/HCPCS: 36415; 80053; 83036; 84443; 85025

== ENCOUNTER 2024-05-27 10:35 | Emergency (ER) | payer OTHER, SELFPAY ==
[2024-05-27 10:43] VITALS: BP 128/89; PULSE 71; RESP 16; TEMP 36.2; O2SAT 99
[2024-05-27 10:52] LABS: EDUAAPPEAR Clear; EDUABILI Negative (Negative); EDUABLOOD Negative (Negative); EDUACOLOR1 Yellow; EDUAGLUCOSE Negative (Negative); EDUAKETONE Negative (Negative); EDUALEUKO Negative (Negative); EDUANITRATE Negative (Negative); EDUAPH 8.5; EDUAPROTEIN 2+ (Negative); EDUASPGRAVITY 1.015; EDUAUROBILI 0.2
--- NOTE | 2024-05-27 11:05 | ED.GENADULT ---
HPI - General Adult General Chief complaint: Back Pain/Injury Stated complaint: Back Pain/Headache Time Seen by Provider: 05/27/24 10:54 Source: patient and RN notes reviewed Mode of arrival: ambulatory Limitations: no limitations History of Present Illness HPI narrative: Patient presents today with mild headache, right flank pain, brainfog x3-4 days. He also reports a near syncopal episode last night at home. He has been on a carnivore diet for the last 4-6 weeks but has added in a few sugar containing items such as a bowl of cereal with fruit recently. He has recently cut down significantly on caffeine from 4 cups of coffee per day to 1. He denies chest pain, shortness of breath, abdominal pain, any current dizziness, vision changes, photophobia. He has tried some ibuprofen for his headache with relief and currently rates it 02/19. Related Data Home Medications ?Medication ?Instructions ?Recorded ?Confirmed ?Last Taken ?Type multivitamin 1 tablet PO DAILY 06/18/21 05/05/24 09/22/23 History ubidecarenone-omega 3-vit E 25 1 cap PO DAILY 06/19/21 05/05/24 09/22/23 History mg-150 (90-60) mg-200 unit capsule (Co P-28-Gfyhmlk E-Fish Oil) pregabalin 150 mg capsule (Lyrica) 150 mg PO BID 01/29/22 05/05/24 09/22/23 History bupropion HCl 150 mg 24 hr tablet, 150 mg PO QAM 03/03/24 05/05/24 Unknown History extended release (Wellbutrin XL) quetiapine 50 mg tablet (Seroquel) 50 mg PO QHS 03/03/24 05/05/24 Unknown History Allergies Allergy/AdvReac Type Severity Reaction Status Date / Time doxepin Allergy Anxiety Verified 05/27/24 10:51 suvorexant (From Belsomra) AdvReac Severe Nightmare Verified 05/27/24 10:51 Review of Systems Review of Systems: CONSTITUTIONAL: Denies body aches, fever, chills, or sweats. EYES: Denies visual changes, redness, or discharge. ENT: Denies rhinorrhea, congestion, sore throat, or otalgia. CARDIOVASCULAR: Denies chest pain, palpitations, or edema. RESPIRATORY: Denies cough or dyspnea. GASTROINTESTINAL: Denies abdominal pain, nausea, vomiting, or diarrhea.+ right flank pain GENITOURINARY: Denies dysuria or hematuria. SKIN: Denies rash, itching, or wounds. MUSCULOSKELETAL: Denies back pain, joint pain, or myalgia. NEUROLOGIC: Denies numbness, tingling, or weakness.+ headache PSYCH: Denies depression or anxiety. [facility] Past Medical History Medical History Hypersomnia Genetic testing Fatigue COVID-19 Left groin pain BMI 26.0-26.9,adult Leukocytosis Fibromyalgia Anemia Encounter to establish care Screening for lipoid disorders Iron deficiency anemia Myalgia Abdominal hernia Restless leg syndrome Herniated disc History of back problems Arthritis Surgical History Surgical History History of left inguinal hernia repair H/O adenoidectomy H/O hernia repair Family History Family History Mother Family history of rheumatoid arthritis Diabetes mellitus Father Asthma Hypertension Heart problem Other Family history of cardiovascular disease Social History Social History Smoking packs per day: 1 Smoking cigarettes per day: 20.0 Years smoked: 10 Smoking pack-years: 10.00 Smoking status: Former smoker Tobacco type: cigarettes Alcohol intake: current Substance use: current Substance use type: marijuana Other substance usage details: INTERMITTENT USE FOR INSOMNIA - GUMMIES Do You Feel Safe in your Home?: Yes Lack of Transportation: No Lack of Food: Never True Current Housing: I Have Housing Concerned About Future Housing: YES Difficulty Paying Gas/Electric Bills: YES Difficulty Paying for Meds: No Currently Unemployed: No Education: Associate Degree Difficulty w/ Childcare or Family Care: No Living arrangements: with family Occupation/Education: occupation 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 Please see nursing chart for further information. There is no relevant family history pertinent to the presenting complaint Exam Narrative: GENERAL: Well-appearing, well-nourished, and in no acute distress. HEAD: Normocephalic, atraumatic. EYES: EOMI. PERRL. No redness or drainage. Conjunctivae normal. ENT: Mucous membranes pink and moist. Throat normal. Uvula midline. NECK: Normal AROM. Supple. No lymphadenopathy. CHEST: No respiratory distress. Clear to auscultation. HEART: Regular rate and rhythm. No murmur appreciated. ABDOMEN: Soft, nontender, nondistended, normal active bowel sounds. -CVAT EXTREMITIES: Normal range of motion. No edema. SKIN: Warm, dry, no rash. Capillary refill normal. Normal skin turgor. No tenting NEURO: No focal deficits. Alert and oriented x3. Gait steady. PSYCH: Normal affect. No signs of depression or anxiety. Course Course Level of Care: Express Care Visit Vital Signs Vital signs: Vital Signs Temperature 97.2 F L 05/27/24 10:43 Pulse Rate 71 05/27/24 10:43 Respiratory Rate 16 05/27/24 10:43 Blood Pressure 128/89 05/27/24 10:43 Pulse Oximetry 99 05/27/24 10:43 Temperature 97.2 F L 05/27/24 10:43 Pulse Rate 71 05/27/24 10:43 Respiratory Rate 16 05/27/24 10:43 Blood Pressure 128/89 05/27/24 10:43 Pulse Oximetry 99 05/27/24 10:43 Oxygen Delivery Room Air 05/27/24 10:44 Reviewed Medical Decision Making MDM Narrative Medical decision making narrative: Urinalysis shows 2+ protein, but otherwise negative. Bedside glucose 92. Based on patient's near syncope episode and flank pain, I do recommend that he be transferred to the ER for further evaluation and treatment. Patient states he would like to wait to follow-up with his PCP as he has an appointment next week. Patient has declined transfer against medical advise. In my opinion, the patient has capacity to leave AMA. The patient is clinically sober, free from distracting injury, appears to have insight and judgement and reason, and in my opinion has capacity to make decisions. I explained the risks of returning home without further workup or treatment, which included possible complications up to and including . Patient continues to refuse transfer to the Emergency Department and will leave AMA. I have asked them to proceed there [facility] if they change their mind. I have answered all their questions. Vital Signs Vital Signs: Vital Signs Temperature 97.2 F L 05/27/24 10:43 Pulse Rate 71 05/27/24 10:43 Respiratory Rate 16 05/27/24 10:43 Blood Pressure 128/89 05/27/24 10:43 Pulse Oximetry 99 05/27/24 10:43 Temperature 97.2 F L 05/27/24 10:43 Pulse Rate 71 05/27/24 10:43 Respiratory Rate 16 05/27/24 10:43 Blood Pressure 128/89 05/27/24 10:43 Pulse Oximetry 99 05/27/24 10:43 Oxygen Delivery Room Air 05/27/24 10:44 Lab Data Lab results reviewed: Yes I reviewed the patient's lab results. Labs: Lab Results 05/27/24 05/27/24 Range/Units 10:49 11:04 POC Capillary Glucose 92 (65-105) mg/dl POC Urine Color Yellow POC Urine Clarity Clear POC Urine pH 8.5 POC Ur Specif [place] 1.015 POC Urine Protein 2+ (Negative) POC Ur Glucose (UA) Negative (Negative) POC Urine Ketones Negative (Negative) POC Urine Blood Negative (Negative) POC Urine Nitrite Negative (Negative) POC Urine Bilirubin Negative (Negative) POC Urine Urobilinogen 0.2 POC U Leukocyte Esteras Negative (Negative) Critical Care Time Critical Care Time Critical Care Time: No Discharge Plan Discharge Clinical Impression: Acute flank pain, Near syncope Patient Disposition: Home Condition: Stable Instructions: Syncope (DC), Flank Pain (ED) Additional Instructions: You have declined transfer to the emergency department for further evaluation of your symptoms. Please seek treatment, especially if symptoms worsen. Your blood pressure was elevated above 120/80 today at Urgent Care. This puts you above the threshold for follow up. Please schedule a followup visit with your personal physician as soon as possible, for further evaluation and treatment. Even blood pressure exceeding 120/80 may indicate pre-hypertension. Patient Language: Greenlandic Prescriptions: No Action pregabalin [Lyrica] 150 mg capsule 150 mg PO BID multivitamin Tablet 1 tablet PO DAILY Co A-16-Mtvpksh E-Fish Oil 25-150-200 mg-mg-unit capsule 1 cap PO DAILY bupropion HCl [Wellbutrin XL] 150 mg tablet extended release 24 hr 150 mg PO QAM quetiapine [Seroquel] 50 mg tablet 50 mg PO QHS pramipexole 0.125 mg tablet 0.125 mg PO .COMPLEX Qty: 60 0RF Rx Instructions: Take 1 tablet by mouth in addition to the 0.375 mg tablet 2 hours before bedtime. Increase by 1 tab in 4 days if symptoms don't resolve. Max dose: 0.625 mg/day zolpidem 12.5 mg tablet,ext release multiphase 12.5 mg PO QHS Qty: 30 0RF cyclobenzaprine 5 mg tablet 10 mg PO TID PRN (Reason: muscle spasm) Qty: 40 0RF Rx Instructions: Do not take while driving. May cause drowsiness. Follow-up/Referrals: PHYSICIAN,CARCASS WASHER [Primary Care Provider] - Time of Disposition: 11:18
[2024-05-27 11:08] LABS: Glucose Point of Care 92 mg/dl (65-105)
== END 2024-05-27 11:22 | disposition home or self-care (01) ==
PROVIDERS: Emergency Provider Nurse Practitioner
DX: R55 Syncope and collapse (principal); R10.9 Unspecified abdominal pain; Z87.891 Personal history of nicotine dependence
CPT/HCPCS: 81003; 82948; 99212; G0463

== ENCOUNTER 2024-05-28 08:33 | Outpatient (CLI) | payer OTHER, SELFPAY ==
--- OUTSIDE RECORDS SUMMARY | 2024-05-28 08:36 | XMS_ITS | CONTINUITY OF CARE DOCUMENT ---
Author Name lorrie, lorrie Address Unknown Organization [facility] Address [address] [place] [address] Phone [phone] Care Team Providers Care Security Guards Dispatcher Name Role Phone Ramakrishna MCKOY, Lito Unavailable [phone] HOPREJI JEAN-CLAUDE Unavailable [phone] HOPPER JEAN-CLAUDE Unavailable [phone] PROBLEMS Condition Status Date Provider Notes Cardiovascular screening active Lito perez MD Palpitations active Lito Durbin MD Tobacco abuse, quit active Lito Liriano Fibromyalgia ? autoimmune disease? active Joaquin Durbin MD [place] thyroiditis active Lito Durbin MD ENCOUNTERS Date Type Provider Location Encounter Diag nosis - In-person encounter Office Visit iLto Durbin MD [facility] Cardiovascular screeningPalpitationsTobacco abuse, quitFibromyalgia ? autoimmune disease?[place] thyroiditis VITAL SIGNS Date Observation Value Provider Body Mass Index (Ratio) 27.32 kg/m2 Markus Can blood pressure, diastolic 80 mm[Hg] [facility], systolic 110 mm[Hg] Genia nicole [place] oxygen saturation, oximetry 98 % Kemal Boss respiratory rate E&M 16 /min [facility] pulse rate 91 /min [facility] weight E&M 185 [lb_av] Kemalam height E&M 69 [in_i] Kemal Boss blood pressure, resting No Kill een Boss ALLERGIES No Known Drug Allergies HISTORY OF MEDICATION USE No Known Medication SOCIAL HISTORY Date Observation Value Provider smoking, year quit 2004 Lito Durbin MD cigarette use yes Lito Durbin MD social history E&M S moking History: Germán juan is a former smoker. Eladio Can social history reviewed E&M revi ewed - no changes required Lito Durbin MD number of grandchildren Lito Interianoeen Karyn smoking status Former smoker Lito rodriguez MD FAMILY HISTORY Family Member Condition Mother Family History of Co ronary Artery Disease: Mother Family History of Hy pertension: Mother Family History of Hy perlipidemia: Mother Family History of Di abetes: Father Family History of Co ronary Artery Disease: INSURANCE PROVIDERS Payer name Policy type / Coverage type [place] [employer] ID [id number] PAY [id number] TREATMENT PLAN Date Name Performer Cardiology:Will get a thyroid function tests from [place]. Lito Durbin MD Cardiology:He has ge neralized pains including chest pains. With the history of fibromyalgia and possible auto immune disease and father having an CA at an early age, he merits a routine stress test and echocardiogram to evaluate his exercise tolerance and wall motion. Lito Durbin MD Cardiology:Infrequen t palpitations but when they do occur, he is quite symptomatic. They usually resolve without medical treatment. Lito Durbin MD HISTORY OF PROCEDURES Procedure Date Procedure Name Provider Procedure Notes S tatus EKG Lito Durbin MD complet ed
--- OUTSIDE RECORDS SUMMARY | 2024-05-28 08:36 | XMS_ITS ---
Author Organization [facility] Address [address] [place] [address] Care Team Providers Care Counter Former Name Role Phone Davian Amara Primary Care Provider [phone] Allergies No Known Allergies REASON FOR VISIT follow-up Medications Medication SIG (Take, Route, Frequency, Duration) Notes Start Date End Date Status Pregabalin 150 MG 1 capsule Orally twi ce a day Active Baclofen 10 MG 1 tablet Orally twic e a day Active DULoxetine HCl 60 MG 1 capsule Orally tw ice a day Active Pramipexole Dihydrochloride ER 0.375 MG 1 tablet Orally at bedtime Active Cyclobenzaprine HCl 10 MG 1 tablet Orall y three times a day Active Ambien 10 MG 2 tablets at bedtime Orally Once a day Active Cetirizine HCl 10 MG 1 tablet Orally Onc e a day Active Fluticasone Propionate 50 MCG/ACT 1 spray in each nostril Nasally Twice a day Active SEROquel 50 MG 1 tablet at bedtime Orally Once a day Active Wellbutrin XL 300 MG 1 tablet in the mor giovanny Orally Once a day Active Social History Sex Assigned At : Social History Observation Description Sex Assigned At Male Problems Problem Type SNOMED Code ICD Code Onset Dates Problem Status W/U Status Risk Notes Problem Insomnia due to mental disorder (24583281) Insomnia due to mental disorder (F51.05) Active confirmed Problem Attention deficit hyperactivity disorder (642837333) ADHD (attention deficit hyperactivity disorder) (F90.9) Active confirmed Vital Signs Weight 176.9 lbs 04/28/2024 Height 70 in 04/28/2024 BMI 25.38 kg/m2 04/28/2024 Blood pressure systolic 126 mm Hg 04/29/19 25 Blood pressure diastolic 80 mm Hg 025 Heart Rate 82 /min 04/28/2024 Oximetry 98 % 04/28/2024 Temperature 96.7 degrees Fahrenheit 04/29/19 25 Respiratory Rate 18 /min 04/28/2024 Encounters Encounter Location Date Provider Diagnosis [facility] [address] [place] [address] 04/28/2024 Amara Marcelo Insomnia due to ment al disorder F51.05 and ADHD (attention deficit hyperactivity disorder) F90.9 Assessments Encounter Date Diagnosis (ICD Code) Assessment Notes Treatment Notes Treatment Clinical Notes Section Notes 04/28/2024 Insomnia due to mental disorder (ICD-10 - F51.05) Pt's sleep medicine provider started him on Belsomra. 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 Rec to get a preg pillow due to discomfort. Pt on seroquel - Last AIMS was on 01/28/24 and score was 1 ( missing teeth)Needs AIMS Q 6 mth or prn 04/28/2024 ADHD (attention deficit hyperactivity disorder) (ICD-10 - F90.9) cont current medication as he is having good symptom resolution and no side effects Paper RX given.Will RTC in 4 weeks. 04/28/2024 Other Pt reqest help filling out some paperwork for disability on what meds I prescrie for him. 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 Pt voiced verbal understanding. Plan Of Treatment Treatment Notes Assessment Notes Insomnia due to mental disorder Pt's sle ep medicine provider started him on Belsomra. 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 Rec to get a preg pillow due to discomfort. Pt on seroquel - Last AIMS was on 01/28/24 and score was 1 ( missing teeth)Needs AIMS Q 6 mth or prn ADHD (attention deficit hype ractivity disorder) cont current medication as he is having good symptom resolution and no side effects Paper RX given.Will RTC in 4 weeks. Other Pt reqest help filli ng out some paperwork for disability on what meds I prescrie for him. 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 Pt voiced verbal understanding. 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 Prev visit Wellutrin was increased for his ADHD symptoms. Increase with Wellbutrin has helped with his focus and concentration. Seroquel helps and does get some rest but not getting enough. He is trying to not use weed. He performs sleep hygiene. Was given duloextine by his sleep med doctor. He went to urgent care due to side effects. He stopped taking it. Has had 2 hours of sleep in the last 3 days. His sleep medicine doctor did give him belsomra for sleep. He thinks the weather and pain h as caused the increase in sleepless nights. He has cxd his most recent eipdural due to having a fear of not working and already having had too many. Pt denies sad, down, depression, hopeless, helpless, a/v hallucinations, delusions, anxious, restless, overwhelmed, fidgety, on -edge, lack of focus lack of concentration, lack of energy, lack of interest, agitation, irritability, psychosis, shmuel, medication side effects, abnormal movements, SI/HI. 19 year old daughter lives with him. He has two dogs He has many specialists. Has RA and Fibro. D epression Screening: PHQ-9 L ittle interest or pleasure in doing things N ot at all, F eeling down, depressed, or hopeless N ot at all, T rouble falling or staying asleep, or sleeping too much N ot at all, F eeling tired or having little energy N ot at all, P oor appetite or overeating N ot at all, F eeling bad about yourself or that you are a failure, or have let yourself or your family down N ot at all, T rouble concentrating on things, such as reading the newspaper or watching television N ot at all, M oving or speaking so slowly that other people could have noticed; or the opposite, being so fidgety or restless that you have been moving around a lot more than usual N ot at all, T houghts that you would be better off or of hurting yourself in some way N ot at all, T otal Score 0 . S creening: Sawyer Suicide Severity Rating Scale (LF) D o you want to initiate with S creener form, 1 . Wish to be : Have you wished you were or wished you could go to sleep and not wake up? N o, 2 . Suicidal Thoughts: Have you actually had any thoughts of killing yourself? N o, 6 . Suicide Behavior Question: Have you ever done anything,started to do anything, or prepared to end your life? N o, I nterpretation: L ow Risk. C SSRS Interpretation and Follow Up Plan: CSSRS Interpretation and Follow Up Plan C SSRS Screen documented using SF Y es, R isk Disposition from L ow - No Follow Up Plan Required, F ollow Up Plan N o Follow Up Plan required at this time.. * ROS: B asic ROS: Insomnia A dmits. D ental Pain D enies. W eight gain D enies. D enies F ever. * Medical History: * Surgical History: a ppendectomy abdominal hernia mesh * Hospitalization/Major Diagno stic Procedure: D enies Past Hospitalization * Family History: M other: alive, anxiety. 1 brother(s) , 2 sister(s) . 1 daughter(s) . . * Social History: P rimary Social History: A lcohol Use A lcohol Use Frequency: N ever. I llicit Substance Usage I llicit Substance Usage: Y es, S ubstance Used: C annabis. E mployment Status E mployment Status: O n Disability. S roland Question Alcohol Screening H ow may times in the past year have you had (4 for women, or 5 for men) or more drinks in a day? 0 . * Medications: T akingWellbutrin XL 300 MG Tablet Extended Release 24 Hour 1 tablet in the morning Orally Once a day SEROquel 50 MG Tablet 1 tablet at bedtime Orally Once a day Fluticasone Propionate 50 MCG/ACT Suspension 1 spray in each nostril Nasally Twice a day Cetirizine HCl 10 MG Tablet 1 tablet Orally Once a day Ambien 10 MG Tablet 2 tablets at bedtime Orally Once a day Baclofen 10 MG Tablet 1 tablet Orally twice a day Pregabalin 150 MG Capsule 1 capsule Orally twice a day Cyclobenzaprine HCl 10 MG Tablet 1 tablet Orally three times a day Pramipexole Dihydrochloride ER 0.375 MG Tablet Extended Release 24 Hour 1 tablet Orally at bedtime DULoxetine HCl 60 MG Capsule Delayed Release Particles 1 capsule Orally twice a day Taking Wellbutrin XL 300 MG Tablet Extended Release 24 Hour 1 tablet in the morning Orally Once a day Taking SEROquel 50 MG Tablet 1 tablet at bedtime Orally Once a day Taking Fluticasone Propionate 50 MCG/ACT Suspension 1 spray in each nostril Nasally Twice a day Taking Cetirizine HCl 10 MG Tablet 1 tablet Orally Once a day Taking Ambien 10 MG Tablet 2 tablets at bedtime Orally Once a day Taking Baclofen 10 MG Tablet 1 tablet Orally twice a day Taking Pregabalin 150 MG Capsule 1 capsule Orally twice a day Taking Cyclobenzaprine HCl 10 MG Tablet 1 tablet Orally three times a day Taking Pramipexole Dihydrochloride ER 0.375 MG Tablet Extended Release 24 Hour 1 tablet Orally at bedtime Taking DULoxetine HCl 60 MG Capsule Delayed Release Particles 1 capsule Orally twice a day * Allergies: N .K.D.A.no[Allergies Verified] Objective: * Vitals: I nitials: sw, Wt:176.9, Ht: 70, BMI:25.38, BP:126/80, HR:82, Oxygen sat %:98, Temp:96.7, RR:18. * Examination: M ental Status Exam: SENSORIUM AND COGNITION A lert, Oriented to Person, Oriented to Place, Oriented to Time, Oriented to Situation. ATTENTION AND CONCENTRATION N o deficits. APPEARANCE A ppropriate, Neatly dressed and groomed, Appears stated age. ATTITUDE AND BEHAVIOR C ooperative, Positive, Pleasant.? MEMORY G rossly intact. EYE CONTACT G ood. AFFECT C ongruent with reported mood. MOOD E uthymic. SPEECH QUANTITY A ppropriate. SPEECH QUALITY S pontaneous, Fluent. THOUGHT PROCESS C oherent and goal directed. THOUGHT CONTENT A ppropriate - WNL,Congruent with affect. LANGUAGE A ppropriate- WNL. MOTOR ACTIVITY N ormal gait. SUICIDAL IDEATION D enies suicidal ideation, Denies self-harm activities. HOMICIDAL IDEATION D enies homicidal ideation. HALLUCINATIONS D enies hallucinations. INSIGHT G ood. JUDGMENT G ood. FUND OF KNOWLEDGE G ood. DEPRESSIVE SYMPTOMS D enies. Assessment: * Assessment: 1. A DHD (attention deficit hyperactivity disorder) - F90.9 (Primary) 2 . I nsomnia due to mental disorder - F51.05 Plan: * Treatment: 2. I nsomnia due to mental disorder Notes: Pt's sleep medicine provider started him on Belsomra. 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 Rec to get a preg pillow due to discomfort. Pt on seroquel - Last AIMS was on 01/28/24 and score was 1 ( missing teeth) Needs AIMS Q 6 mth or prn 3. O thers Notes: Pt reqest help filling out some paperwork for disability on what meds I prescrie for him. 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 Pt voiced verbal understanding. * Procedure Codes: * Follow Up: 4 Weeks * * Sign off status: Completed true * [facility] 04/28/2024 Generated for Shilpa daley/Darren/Jose Daniel on: 0 05/28/2024 08:36 AM CDT History and Physical Notes * HPI (History of Present Illness) Category Sub-Category Detail Notes Category Not es Depression Screening PHQ-9 Little inte rest or pleasure in doing things: Not at all Feeling down, depressed, or hopeless: No t at all Trouble falling or staying asleep, or sl eeping too much: Not at all Feeling tired or having little energy: N ot at all Poor appetite or overeating: Not at all Feeling bad about yourself o r that you are a failure, or have let yourself or your family down: Not at all Trouble concentrating on thi ngs, such as reading the newspaper or watching television: Not at all Moving or speaking so slowly that other people could have noticed; or the opposite, being so fidgety or restless that you have been moving around a lot more than usual: Not at all Thoughts that you would be b jaylen off or of hurting yourself in some way: Not at all Total Score: 0 Screening Sawyer Suicide Sev erity Rating Scale (LF) Do you want to initiate with: Screener form 1. Wish to be : Have you wished you were or wished you could go to sleep and not wake up?: No 2. Suicidal Thoughts: Have you actually had any thoughts of killing yourself?: No 6. Suicide Behavior Question: Have you ever done anything,started to do anything, or prepared to end your life?: No Interpretation:: Low Risk CSSRS Interpretation and Follow Up Plan CSSRS Interpretation and Follow Up Plan CSSRS Screen documented using SF: Yes Risk Disposition from SF: Low - No Follo w Up Plan Required Follow Up Plan: No Follow Up Plan requir ed at this time. Examination Category Sub-Category Detail Notes Category Not es Mental Status Exam SENSORIUM AND COGNITION Alert , Oriented to Person, Oriented to Place, Oriented to Time, Oriented to Situation ATTENTION AND CONCENTRATION No deficits APPEARANCE Appropriate, Neatly dressed and groomed, Appears stated age ATTITUDE AND BEHAVIOR Cooperative, Posit mark, Pleasant MEMORY Grossly intact EYE CONTACT Good AFFECT Congruent with repor patricio mood MOOD Euthymic SPEECH QUANTITY Appropriate SPEECH QUALITY Spontaneous, Fluent THOUGHT PROCESS Coherent and goal di rected THOUGHT CONTENT Appropriate - WNL, C ongruent with affect MOTOR ACTIVITY Normal gait SUICIDAL IDEATION Denies suicidal idea tion, Denies self-harm activities HOMICIDAL IDEATION Denies homicidal dolores ation HALLUCINATIONS Denies hallucination s INSIGHT Good JUDGMENT Good FUND OF KNOWLEDGE Good LANGUAGE Appropriate- WNL DEPRESSIVE SYMPTOMS Denies
--- OUTSIDE RECORDS SUMMARY | 2024-05-28 08:36 | XMS_ITS | Referral Summary ---
Author Organization [facility] Address [address] [place] [address] Care Team Providers Care Termination Clerk Name Role Phone Rajesh Moscoso DO Primary Care Provider [phone] Neisha Mackenzie NP Unavailable [phone] Encounters Date Type Department Care Team Description 04/26/2024 Telephone [facility] Orthopaedic Surgery [address] [facility] [address] [place] [address] Dave Quiroz from Last 3 Months Allergies No known active allergies Medications pramipexole (MIRAPEX) 0.125 mg tablet Take 1 tablet (0.125 mg total) by mouth nightly Takes 4 tabs at bedtime 03/21/19 24 Active albuterol HFA (PROVENTIL HFA,VENTOLIN HFA,PROAIR HFA) 90 mcg/actuation inhaler as needed 02/12/19 24 Active baclofen (LIORESAL) 10 mg tabletIndications :Lumbar radiculopathy TAKE 1 TO 2 TABLETS BY MOUTH EVERY NIGHT AT BEDTIME 60 tablet 3 09/05/19 24 Active zolpidem (AMBIEN) 10 mg tablet Take 1 tablet (10 mg total) by mouth nightly as needed for sleep 11/11/19 24 Active budesonide (PULMICORT) 0.5 mg/2 mL nebulizer solution Take 2 mL (0.5 mg total) by nebulization daily 11/06/19 24 Active fluticasone propionate (FLONASE) 50 mcg/actuation nasal spray Administer 2 sprays into affected nostril(s) daily 11/13/19 24 Active cyclobenzaprine (FLEXERIL) 10 mg tablet TAKE 1 TABLET(10 MG) BY MOUTH TWICE DAILY NEEDED FOR MUSCLE SPASMS 60 tablet 1 02/17/19 25 Active pregabalin (LYRICA) 150 mg capsuleIndication s:Lumbar disc disease with radiculopathy Take 1 capsule (150 mg total) by mouth 2 (two) times a day 60 capsule 1 05/15/19 25 Active pregabalin (LYRICA) 150 mg capsuleIndication s:Lumbar disc disease with radiculopathy Take 1 capsule (150 mg total) by mouth 2 (two) times a day 60 capsule 1 10/14/19 24 025 Discontin ued(Reord er) Active Problems Problem Noted Date Diagnosed Date Brain fog 12/08/2023 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 03/26/23 - Left II/IH nerve block - >80% benefit - Assessment & Plan (09/30/2023 8:21 AM CDT): Significant and ongoing benefit from prior ilioinguinal and hypogastric nerve block. No intervention at this time. Lumbar disc disease with radiculopathy 3 Overview (09/28/2023): Previous Injections lumbar spine- with [facility] - Dr. Anthony Olivia 09/04/21 SI Joint Injection 11/08/21 Left L5/S1 TFESI- increased pain - 08/19/22, 04/17/23 - LESI L5-S1 - >80% benefit - MRI Ls 01/2022 FINDINGS: The alignment of the lumbar spine is normal. Endplate changes are seen at L3-L4. There are no compression fractures. The conus medullaris terminates at the level of L1-L2. The distal spinal cord signal intensity is normal. Intervertebral disks have normal height and signal intensity. Limited views of the abdomen and pelvis show no soft tissue abnormality. The aorta is normal. L1-L2: The disc is normal in configuration. There is no facet arthropathy. There is no neuroforaminal stenosis. There is no spinal canal stenosis. L2-L3: The disc is normal in configuration. There is mild bilateral facet arthropathy. There is no neuroforaminal stenosis. There is no spinal canal stenosis L3-L4: Disc bulge. There is mild bilateral facet arthropathy. There is mild left neuroforaminal stenosis. There is mild spinal canal stenosis L4-L5: Disc bulge with superimposed central disc protrusion. There is mild bilateral facet arthropathy. There is no neuroforaminal stenosis. There is no spinal canal stenosis L5-S1: The disc is normal in configuration. There is moderate bilateral facet arthropathy. There is no neuroforaminal stenosis. There is no spinal canal stenosis IMPRESSION: Mild degenerative changes of the lumbar spine as described in detail above. No high-grade canal or neuroforaminal stenosis. - CT 03/2022 FINDINGS: Alignment: Minimal retrolisthesis of L3 over L4. Vertebral bodies: Normal in height without compression fractures. Intervertebral disks: Moderate disc space height loss at L3-L4 with discogenic sclerosis and vacuum disc phenomenon. Soft tissues: Sclerotic calcification of the infrarenal abdominal aorta L1-L2: The disc is normal in configuration. There is no facet arthropathy. There is no neuroforaminal stenosis. There is no spinal canal stenosis. L2-L3: Trace disc bulge. There is mild bilateral facet arthropathy. There is no neuroforaminal stenosis. There is no spinal canal stenosis L3-L4: Diffuse disc bulge. There is mild bilateral facet arthropathy. There is moderate left and mild right neuroforaminal stenosis. There is mild spinal canal stenosis L4-L5: Disc bulge with superimposed central disc protrusion. There is moderate bilateral facet arthropathy. There is moderate left and mild right neuroforaminal stenosis. There is no spinal canal stenosis L5-S1: The disc is normal in configuration. There is moderate bilateral facet arthropathy. There is no neuroforaminal stenosis. There is no spinal canal stenosis IMPRESSION: Mild degenerative changes of the lumbar spine as described above, most pronounced at L3-L4 and L4-L5 with moderate left neuroforaminal stenosis. - MRI 09/2021 IMPRESSION: This patient appears to have 6 lumbarized vertebral levels; however on prior radiographic examination of the lumbar spine, vertebral levels were designated L1 through L5. This numbering scheme shall be utilized on the current examination for consistent numbering of disc spaces. Given this patient's variant anatomy, particular care should be made in correlating the results of this examination with any subsequent imaging of the lumbar spine, particularly if surgery is considered. There is loss of disc height at the designated L4-L5 and L5-S1 levels. This appears more significant at L4-L5 where a disc herniation eccentric to the left results in a mild central canal stenosis, mild right and mild to moderate left lateral recess and neural foraminal stenosis. In addition, there appears to be a free disc fragment posterior to the L5 vertebral body, although this is not well visualized in the axial plane. This results in a moderate left lateral recess stenosis. Diffuse disc bulge at L5-S1 with bilateral facet arthropathy results in a mild central canal, bilateral lateral recess, and neural foraminal stenosis. Assessment & Plan (09/30/2023 9:28 AM CDT): Significant long lasting relief in radicular symptoms from prior LESI up to 6 months Given prior success and with return of lumbar radiculopathy, will plan for LESI (L5-S1) during next visit. Continue baclofen (QHS) and lyrica - no changes. Discussed caution with flexeril (which he takes during the day) and his duloxetine. 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 Never 06/12/2023 Q2: How many drinks containi ng alcohol do you have on a typical day when you are drinking? Patient does not drink Frequency of Binge Drinking Not on file 03/2023 Hunger Vital Sign Answer Date Recorded Within the past 12 months, y ou worried that your food would run out before you got the money to buy more. Never true 06/12/19 24 Within the past 12 months, t he food you bought just didn't last and you didn't have money to get more. 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 Gender Identity Not on file Sexual Orientation Not on file Last Filed Vital Signs Vital Sign Reading Time Taken Comments Blood Pressure 118/79 12/03/2023 10:07 AM CDT Pulse 56 12/03/2023 10:07 AM CDT Temperature 36.4 C (97.5 F) 12/03/2023 10:07 AM CDT Respiratory Rate 16 09/30/2023 7:42 AM CDT Oxygen Saturation 97% 12/03/2023 10:07 AM CDT Inhaled Oxygen Concentration - - Weight 86.4 kg (190 lb 6.4 oz) 12/03/2023 10:07 AM CDT Height 175.3 cm (5' 9.02 ) 12/03/2023 10:07 AM C DT Body Mass Index 28.1 12/03/2023 10:07 AM CDT Plan of Treatment Not on file Goals Goal Patient Goal Type Associated Problems Recent Progress Patient-Stated? Author CCM Chronic Pain Care Plan Chronic Care Management No change(09/29 7:44 AM CDT) No Shahnaz Esparza, TOMASA Note: Problem: Chronic Pain Goals: 1. Minimize further functional decline 2. Maximize quality of life 3. Control pain Strategies: - Activity/exercise program recommendation - Conservative stepwise pain medicine strategy with multi-disciplinary approach - Recommend healthy lifestyle strategies and compensatory methods as needed Insurance [facility] Member Subscriber Plan / Payer (Ef fective 2021-Present) Name:Komal Njd Chet Relation to Subscriber:Self Name:Vega Nj Payer ID:[id number] (NAIC) Group ID:Not on file Type:MEDICAID RISK OTHER Address: ATTN: CLAIMS DEPT [address] [place], [place] [id number] Care Teams Termination Clerk Relationship Specialty Start Date End Date Rajesh Moscoso DO PCP - General Internal Medicine 08/17/21 Neisha Mackenzie NP [address] [place] [address] DR DEXTER [address] [place] [id number] Internal Medicine 10/20/23 Ghislaine Moreau LCSW [address] [facility] [address] Artist Mannequin Coloring Infectious Diseases 12/03/23
--- OUTSIDE RECORDS SUMMARY | 2024-05-28 08:36 | XMS_ITS | Encounter Summary ---
Author Organization [facility] Health Address [address] [place] [address] Care Team Providers Care Aircraft Skin Burnisher Name Role Phone Franchesca Cervantes [facility] Primary Care Provider [phone] Encounter Details Date Type Department Care Team (Late st Contact Info) Description 10/25/2021 [facility] Outpatient Visit [facility] [address] [place] [address] Anthony Olivia MD [address] [facility] [address] [place] [address] Social History Tobacco Use Types Packs/Day Years Used Date Smoking Tobacco: Never Smokeless Tobacco: Never Sex and Gender Information Value Date Recorded Sex Assigned at Not on file Legal Sex Male 2:41 PM CDT Gender Identity Not on file Sexual Orientation Not on file documented as of this encounter Plan of Treatment Not on file documented as of this encounter Visit Diagnoses Not on filedocumented in this encounter Care Teams Aircraft Skin Burnisher Relationship Specialty Start Date End Date Franchesca Cervantes APRN-[facility] [place] [address] PCP - General Certified Clinical Nurse Specialist 10/10/21 documented as of this encounter
--- OUTSIDE RECORDS SUMMARY | 2024-05-28 08:36 | XMS_ITS | Clinical Summary ---
Author Organization [facility] Address [address] [place] [address] Care Team Providers Care Picker Operator Name Role Phone Rajesh Moscoso DO Primary Care Provider [phone] Neisha Mackenzie NP Unavailable [phone] Allergies No known active allergies Medications pramipexole [...] this time. 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 Facial pain 03/29/2013 Encounters Date Type Department Care Team Description 04/26/2024 Telephone [facility] Orthopaedic Surgery [address] [facility] [address] [place] [address] Dave Quiroz from Last 3 Months Surgical History Surgery Date Site/Laterality Comments INGUINAL HERNIA REPAIR 02/10/2003 - 02/10/2004 Left Open ORCHIOPEXY Left APPENDECTOMY Medical History Medical History Date Comments Hernia, abdominal Arthritis Low back pain Low back pain Bone infection (HCC) right jaw, sinus Family History Medical History Relation Name Comments Heart disease Father Family history of cardiac disorder - (Added by TW Conv) Hypertension Father Diabetes Mother Family history of diabetes mellitus - (Added by NADINE Conv) Heart disease Mother Family history of cardiac disorder - (Added by NADINE Conv) Relation Name Status Comments Father Mother Social History Tobacco Use Types Packs/Day Years [...] on file 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 Gender Identity Not on file Sexual Orientation Not on file Obstetrics History Last Filed Vital Signs Vital Sign Reading [...] 12/03/2023 10:07 AM CDT Plan of Treatment Health Maintenance Due Date Last Done Comments Colon Cancer Screening-Colonoscopy 1972 Depression Screening 1972 Hepatitis C Screening 1972 Prostate Cancer Screening-PSA 1972 Hepatitis B Screening 01/21/1990 Regular Well Visit/Exam 18-64 01/21/1990 DTaP/Tdap/Td Vaccine (1 - Tdap) 06/21/2019 06/20/2019 Zoster Vaccine (1 of 2) 01/21/2022 Influenza Vaccine (Season Ended) 2024 Pneumococcal vaccine <65 Aged Out 017, 02/11/2016 No longer eligible based on patient's age to complete this topic Goals Goal Patient Goal Type Associated Problems Recent Progress Patient-Stated? Author CCM Chronic Pain Care Plan Chronic Care Management No change(09/29 7:44 AM CDT) No Shahnaz Esparza, RN Note: Problem: Chronic Pain Goals: 1. Minimize further functional decline 2. Maximize quality of life 3. Control pain Strategies: - Activity/exercise program recommendation - Conservative stepwise pain medicine strategy with multi-disciplinary approach - Recommend healthy lifestyle strategies and compensatory methods as needed Insurance [facility] Care Teams Picker Operator Relationship Specialty Start Date End Date Rajesh Moscoso DO PCP - General Internal Medicine 08/17/21 Neisha Mackenzie NP [address] [place] [address] DR DEXTER [address] [place] [id number] Internal Medicine 10/20/23 Ghislaine Moreau, CNA CAREGIVER [address] [facility] [address] Net Sql Developer Infectious Diseases 12/03/23
--- OUTSIDE RECORDS SUMMARY | 2024-05-28 08:36 | XMS_ITS | Encounter Summary ---
Author Organization [facility] Address [address] [place] [address] Phone Care Team Providers Care Pickers Material Handlers Name Role Phone Rajesh Moscoso DO Primary Care Provider [phone] Neisha Mackenzie POWERHOUSE MECHANIC HELPER Unavailable [phone] Encounter Details Date Type Department Care Team (Late st Contact Info) Description 12/21/2021 Orders Only [facility] Scanning, Provider Social History Tobacco Use Types Packs/Day Years Used Date Smoking Tobacco: Former Cigarettes 0.3 10 AUDIT-C Answer Date Recorded Q1: How often do you have a drink containing alcohol? Never 12/04/2021 Q2: How many drinks containi ng alcohol do you have on a typical day when you are drinking? 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 Gender Identity Not on file Sexual Orientation Not on file documented as of this encounter Plan of Treatment Not on file documented as of this encounter Goals Goal Patient Goal Type Associated Problems [...] lifestyle strategies and compensatory methods as needed documented as of this encounter Procedures Procedure Name Priority Date/Time Associated Diagnosis Comments SCAN - LABS 12/21/2021 documented in this encounter Results * SCAN - LABS (12/21/2021) us Provider Scanning Edited Result - Final documented in this encounter Visit Diagnoses Not on filedocumented in this encounter Care Teams Pickers Material Handlers Relationship Specialty Start Date End Date Rajesh Moscoso DO PCP - General Internal Medicine 08/17/21 Neisha Mackenzie NP [address] [place] [address] DR DEXTER [address] [place] [id number] Internal Medicine 10/20/23 Ghislaine Moreau, [facility] [address] [facility] [address] Swatch Checker Infectious Diseases 12/03/23 documented as of this encounter
--- OUTSIDE RECORDS SUMMARY | 2024-05-28 08:36 | XMS_ITS | Patient Health Record ---
Author Organization [facility] Address [address] [place] [address] Care Team Providers Care Agricultural Sciences Professor Name Role Phone Amara Marcelo Primary Care Provider Allergies No Known Allergies Reason For Referral No Information Medications Medication SIG (Take, Route, Frequency, Duration) Notes Start Date End Date Status Cetirizine HCl 10 MG 1 tablet Orally Onc e a day Active Ambien 10 MG 2 tablets at bedtime Orally Once a day Active SEROquel 100 MG 1 tablet at bedtime Orally Once a day for 30 days Active Cyclobenzaprine HCl 10 MG 1 tablet Orall y three times a day Active Pramipexole Dihydrochloride ER 0.375 MG 1 tablet Orally at bedtime Active Baclofen 10 MG 1 tablet Orally twic e a day Active Pregabalin 150 MG 1 capsule Orally twi ce a day Active DULoxetine HCl 60 MG 1 capsule Orally tw ice a day Active Wellbutrin XL 300 MG 1 tablet in the mor giovanny Orally Once a day for 90 days Active Fluticasone Propionate 50 MCG/ACT 1 spray in each nostril Nasally Twice a day Active Social History Sex Assigned At : Social History Observation Description Sex Assigned At Male PRAPARE Question Answer Notes Date Completed/Updated: 05/11/2024 What is your current housing situation? I have h ousing Are you worried about losing your housing? No What is the highest level of school that you have finished? High school diploma or GED What is your current work situation? Oth erwise unemployed but not seeking work (ex. 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 Check all that apply I do not have problems meeting my needs Has lack of transportation k ept you from medical appointments, meetings, work or from getting things needed for daily living? No How often do you see or talk to people that you care about and feel close to? (For example: talking to friends on the phone, visiting friends or family, going to hindu or club meetings) 3 to 5 times a week How stressed are you? Stress is when someone feels tense, nervous, anxious, or can\t sleep at night because their mind is troubled Very much In the past year have you sp ent more than 2 nights in a row in a [facility], assisted, [place] [facility] [place] center, or juvenile correctional facility? No Do you feel physically and e motionally safe where you currently live? Unsure In the past year, have you b een afraid of your partner or ex-partner? I have not had a partner in the past year PRAPARE Score: 6 Problems Problem Type SNOMED Code ICD Code Onset Dates Problem Status W/U Status Risk Notes Problem Attention deficit hyperactivity disorder (505323976) ADHD (attention deficit hyperactivity disorder) (F90.9) Active confirmed Problem Insomnia due to mental disorder (48209910) Insomnia due to mental disorder (F51.05) Active confirmed Vital Signs Heart Rate 86 /min 05/26/2024 Temperature 97.2 degrees Fahrenheit 05/26/2024 Respiratory Rate 16 /min 05/26/2024 Blood pressure diastolic 82 mm Hg 05/26/2024 Oximetry 98 % 05/26/2024 Height 70 in 05/26/2024 Blood pressure systolic 126 mm Hg 05/26/2024 Weight 180 lbs 05/26/2024 BMI 25.82 kg/m2 05/26/2024 Encounters Encounter Location Date Provider Diagnosis [address] [address] 04/28/2024 Amara Marcelo Insomnia due to mental disorder F51.05 and ADHD (attention deficit hyperactivity disorder) F90.[address] [address] 05/26/2024 Aamra Marcelo ADHD (attention deficit hyperactivity disorder) F90.9 and Insomnia due to mental disorder F51.[address] [place] [address] 04/26/2024 Amara Marcelo [address] [place] [address] 04/26/2024 Amara Marcelo [address] [facility] [place] [address] 05/13/2024 Amara Marcelo Assessments Encounter Date Diagnosis (ICD Code) Assessment Notes Treatment Notes Treatment Clinical Notes Section Notes 04/28/2024 ADHD (attention deficit hyperactivity disorder) (ICD-10 - F90.9) cont current medication as he is having good symptom resolution and no side effects Paper RX given.Will RTC in 4 weeks. 04/28/2024 Insomnia due to mental disorder (ICD-10 - F51.05) Pt's sleep medicine provider started him on Belsomra. He plans to sweet pickle maker today. Rec to get a preg pillow due to discomfort. Pt on seroquel - Last AIMS was on 01/28/24 and score was 1 ( missing teeth)Needs AIMS Q 6 mth or prn 05/26/2024 ADHD (attention deficit hyperactivity disorder) (ICD-10 - F90.9) cont current medication as he is having good symptom resolution and no side effects Please mx for signs and symptoms of serotonin syndrome include but not limited to: anxiety, agitation, high fever, sweating, confusion, tremors, restlessness, lack of coordination/hyper reflexia,clonus, major changes in blood pressure, and rapid heart rate. Call 911 / seek immediate medical attention if any of these signs or symptoms and call the office to make provider aware. Pt receptive Pt aware to call 911 and or 988 if having thoughts of suicide plan or intent or having homicidal ideations. Pt voiced understanding. 05/26/2024 Insomnia due to mental disorder (ICD-10 - F51.05) Pt's sleep medicine provider started him on Ambien XR due to Belsomra making him sleep walk. He is requesting an increase in Seroquel to help him sleep. Will increase seroquel to 100mg at hs. He does plan to get a preg pillow due to discomfort. Pt on seroquel - Last AIMS was on 05/26/24 and score was 1 ( missing teeth) He denies TD signs or symptoms. Needs AIMS Q 6 mth or prn Neuroleptic malignant syndrome (NMS) is a rare and life-threatening reaction to the use of any antipsychotic medications. Symptoms of NMS include but not limited to:High fever (hyperthermia), Stiff, rigid muscles that can lead to eventual muscle breakdown, AMS, blood pressure changes, excessive sweating and excessive secretion of saliva.NMS is potentially life-threatening and requires immediate medical attention in a hospital setting. If this condition is suspected please send pt out to be evaluated further. Second generation antipsychotics (SGAs) have metabolic syndrome issues with weight gain, increase in prolactin, increased waist circumference, increased lipids, and increased glucose. Thus routine monitoring of weight, metabolic labs, etc. is indicated. A general rank ordering of antipsychotics that have the greatest to the least risk of metabolic effects is olanzapine, quetiapine, risperidone, ziprasidone, and aripiprazole. However, weight gain can occur with all of these drugs and considerable variability exists among patients receiving the same drug regarding the risk of metabolic effects. Anti-psychotic agents not only increase the risk of metabolic disorder, they also increase the risk of CVA, akathisia, and movement disorders including EPS or tardive dyskinesia (more common with first generation antipsychotics) and more. 04/28/2024 Other Pt reqest help filling out some paperwork for disability on what meds I prescrie for him. Advised he drop off paperwork to facility on 05/12 and will review and he can sweet pickle maker at next appt. Pt voiced verbal understanding. Plan Of Treatment Next Appt Details Provider Name:Amara Head , 06/30/2024 10:00:00 AM, [address] [place] [address], [phone], Insurance Providers Payer Name Payer Address Payer Phone Subscriber Number Group Number Insured Name Patient Relationship to Insured Coverage Start Date Coverage End Date [facility] Attn Claims Department [address] [place] [address] [id number] [place] Self - patient is the insured 3 MEDICAID [address] [place] [address] [id number] [place] Self - patient is the insured 5 Medical (General) History Surgical History Surgery Date(Month/Year) appendectomy abdominal hernia mesh
--- OUTSIDE RECORDS SUMMARY | 2024-05-28 08:36 | XMS_ITS | Clinical Summary ---
Author Organization [facility] Address [address] [place] [address] Care Team Providers Care Marshmallow Runner Name Role Phone Franchesca Cervantes APRN-[facility] Primary Care Provider [phone] Source Comments [facility],non-owned Affiliates and Associated Physician Practices is amultiple site organization consisting of ambulatory clinics and hospital sitesin [place], [place], [place] and [place]. This disclosure is being madepursuant to the Care Everywhere program and may not contain all information available regarding this patient. Last updated 17.[facility] Allergies No known active allergies Medications * Be aware that medications may not be up to date on this document. Alwaysverify current medications with the patient. acetaminophen (Tylenol) 325 MG tablet Take 1 (one) tablet by mouth every 4 hours as needed for Fever or Pain Maximum allowable Acetaminophen amount = 4 Grams (4000 mg) / 24 hours. Active pregabalin (Lyrica) 150 MG capsule Take 1 (one) capsule by mouth 2 times daily 05/12/19 22 Active cyclobenzaprine (Flexeril) 10 MG tablet Take 1 (one) tablet by mouth 2 times daily as needed for Muscle Spasms 10/12/19 21 Active eszopiclone (Lunesta) 3 MG tablet Take 1 (one) tablet by mouth as directed Active pramipexole (Mirapex) 0.125 MG tablet Take 1 (one) tablet by mouth at bedtime 03/21/19 24 Active budesonide (Pulmicort) 0.5 MG/2ML nebulizer suspensionIndica tions:Chronic rhinitis,Nasal turbinate hypertrophy,Nasa l obstruction,Pi/Senior Research Associate marina pansinusitis Mix one vial in 90-120 cc of salt water. Irrigate half into each nostril two times/day. 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 Immunizations Immunization Administration Dates Next Due PNEUMOCOCCAL PCV VACCINE 02/11/2016 TD, HISTORIC VACCINE 06/20/2019 Social History Tobacco Use Types Packs/Day Years Used Date Smoking Tobacco: Never Smokeless Tobacco: Never Tobacco Cessation:Counseling Given: No Alcohol Use Standard Drinks/Week Comments Not Currently 0 (1 standard drink = 0.6 oz pur e alcohol) Sex and Gender Information Value Date Recorded Sex Assigned at Not on file Legal Sex Male 2:41 PM CDT Gender Identity Not on file Sexual Orientation Not on file Last Filed Vital Signs Vital Sign Reading Time Taken Comments Blood Pressure 128/87 11/06/2023 8:07 AM CDT Pulse 76 11/06/2023 8:07 AM CDT Temperature 36.4 C (97.6 F) 11/16/2021 10:41 AM CDT Respiratory Rate 17 11/16/2021 10:41 AM CDT Oxygen Saturation 100% 11/08/2021 3:43 PM CDT Inhaled Oxygen Concentration - - Weight 84.8 kg (187 lb) 11/06/2023 8:07 AM CDT Height 175.3 cm (5' 9 ) 11/06/2023 8:07 AM CDT Body Mass Index 27.62 11/06/2023 8:07 AM CDT Plan of Treatment Health Maintenance Due Date Last Done Comments COLOGUARD (AGES 45-75) - COL ON CA SCREENING 1972 COLON MONITORING 1972 COLONOSCOPY - COLON CA SCREENING 1972 CT COLONOGRAPHY - COLON CA SCREENING 1972 Colorectal Cancer Screening 1972 FIT - COLON CA SCREENING 1972 FLEX SIG - COLON CA SCREENING 1972 LIPID TESTING 1972 HIV SCREENING 01/21/1987 HEPATITIS C SCREENING 01/17/1990 HEPATITIS B VACCINE (1 of 3 - 19+ 3-dose series) 01/21/1991 PNEUMOCOCCAL VACCINE 50+ (2 of 2 - PPSV23) 01/21/2022 02/11/2016 ZOSTER VACCINE (1 of 2) 01/21/2022 COVID-19 VACCINE (1 - 2023-2 5 season) 2023 SCREENING FOR DIABETES 11/06/2023 DEPRESSION SCREENING 02/11/2024 INFLUENZA VACCINE (Season Ended) 2024 DTAP/TDAP/TD VACCINES (2 - T d or Tdap) 06/19/2029 06/20/2019 HIB VACCINE Aged Out No longer eligi ble based on patient's age to complete this topic HPV VACCINE Aged Out No longer eligi ble based on patient's age to complete this topic MENINGOCOCCAL (Group B) VACC INE SHARED DECISION-MAKING Aged Out No longer eligibl e based on patient's age to complete this topic MENINGOCOCCAL GROUPS A/C/Y/W VACCINE Aged Out No longer eligible b ased on patient's age to complete this topic Insurance [facility] [place] [id number] Care Teams Marshmallow Runner Relationship Specialty Start Date End Date Franchesca Cervantes APRN-MILLINERY WORKER [address] [place] [address] PCP - General Certified Clinical Nurse Specialist 10/10/21
--- OUTSIDE RECORDS SUMMARY | 2024-05-28 08:36 | XMS_ITS ---
Author Organization [facility] Address [address] [place] [address] Care Team Providers Care Photocomposing Machine Operator Name Role Phone [place] Marceloantha Primary Care Provider Allergies No Known Allergies REASON FOR VISIT 1 Month Psych F/U & Med Refill Medications Medication SIG (Take, Route, Frequency, Duration) Notes Start Date End Date Status Cetirizine HCl 10 MG 1 tablet Orally Onc e a day Active Ambien 10 MG 2 tablets at bedtime Orally Once a day Active SEROquel 100 MG 1 tablet at bedtime Orally Once a day for 30 days Active Baclofen 10 MG 1 tablet Orally twic e a day Active Fluticasone Propionate 50 MCG/ACT 1 spray in each nostril Nasally Twice a day Active Cyclobenzaprine HCl 10 MG 1 tablet Orall y three times a day Active Pramipexole Dihydrochloride ER 0.375 MG 1 tablet Orally at bedtime Active Pregabalin 150 MG 1 capsule Orally twi ce a day Active DULoxetine HCl 60 MG 1 capsule Orally tw ice a day Active Wellbutrin XL 300 MG 1 tablet in the mor giovanny Orally Once a day for 90 days Active Social History Sex Assigned At : [...] work (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 Stress is when someone feels tense, nervous, anxious, or can\t sleep at night because their mind is troubled Very much In the past year have you sp ent more than 2 nights in a row in a custodial, shelter, half-way center, or juvenile correctional facility? No Do you feel physically and e motionally safe where you currently live? Unsure In the past year, have you b een afraid of your partner or ex-partner? 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 Plan Of Treatment Medication Medication Name Sig Start Date Stop Date Notes SEROquel 100 MG 1 tablet at bedtime Orally Once a day for 30 days Wellbutrin XL 300 MG 1 tablet in the mor giovanny Orally Once a day for 90 days Treatment Notes Assessment Notes ADHD (attention deficit hype ractivity disorder) cont current medication as he is having good symptom resolution and no side effects Please mx for signs and symptoms of serotonin syndrome include but not limited to: anxiety, agitation, high fever, sweating, confusion, tremors, restlessness, lack of coordination/hyperreflexia,clonus, major changes in blood pressure, and rapid heart rate. Call 911 / seek immediate medical attention if any of these signs or symptoms and call the office to make provider aware. Pt receptive Pt aware to call 911 and or 988 if having thoughts of suicide plan or intent or having homicidal ideations. Pt voiced understanding. Insomnia due to mental disorder Pt's sleep medicine provider started him on [...] common with first generation antipsychotics) and more. 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 His collections attorney called and requested his meds and records from [place]. He doesnt need anything filled out today. Has court soon. He did start Belsomra and tried it 2x. It is from his sleep doctor. Was dreaming and was sleep walking. He started ambien XR and got 2 hours of sleep. Pt is interested in increasing seroquel to help with sleep. He hasnt slept well in a week. He feels foggy and can't think well from lack of sleep. He thinks his ADHD symptoms continue to improve,but with sleep it's better. He has an eye twitch that started 2 weeks ago and switch eyes. He thinks it is sleep related. He never had this issue when he started Seroquel Pt denies sad, down, depression, hopeless, helpless, a/v hallucinations, delusions, anxious, restless, overwhelmed, fidgety, on -edge, lack of focus lack of concentration, lack of energy, lack of interest, agitation, irritability, psychosis, shmuel, medication side effects, abnormal movements, SI/HI. 19 year old daughter lives with him. He has two dogs He has many specialists. Has RA and Fibro. A bnormal Involuntary Movement Scale: Facial and Oral Movements M uscles of Facial Expression?0- None, L ips and Perioral Area 0 - None, J aw 0 - None, T ongue 0 - None. E xtremity Movements U pper (arms, wrists, hands, fingers) 0 - None, L ower (legs, knees, ankles, toes) 0 - None. T runk Movements N jag, Shoulders and hips 0 - None.?Global Judgement S everity of abnormal movements overall 0 - None, I ncapacitation due to abnormal movements 0 - None, P atient's awareness of abnormal movements 0 - No Awareness. D ental Status C urrent problems with teeth and/or dentures Y es needs a procedure but insurance doesn't cover, A re dentures usually worn? N o, E ndentia Y es 1 tooth missing, D o movements disappear with sleep? N o. * ROS: B asic ROS: Denies C hills. D enies W eight loss or gain. D enies C hest pain. A dmits H eart Murmur. D enies H eart Problems. D enies?Mental or Physical Abuse. D enies S ubstance Abuse. D enies S uicidal Thoughts.? * Medical History: * Surgical History: a ppendectomy abdominal hernia mesh * Hospitalization/Major Diagno stic Procedure: D enies Past Hospitalization * Family History: M other: alive, anxiety. 1 brother(s) , 2 sister(s) . 1 daughter(s) . . * Social History: P [facility] Social History: L iving Arrangement L iving Arrangement: I ndependent Living, I s this a supportive environment? Y es. A lcohol Use A lcohol Use Frequency: [...] more drinks in a day? 0 . S ocial Determinants: P CARSON Liriano ate Completed/Updated: 0 05/11/2024, W hat is your current housing situation? I have housing, A re you worried about losing your housing? N o, W hat is the highest level of school that you have finished? H igh school diploma or GED, W hat is your current work situation? O therwise unemployed but not seeking work (ex. 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 Check all that apply I do not have problems meeting my needs, H as lack of transportation kept you from medical appointments, meetings, work or from getting things needed for daily living? N o, H ow often do you see or talk to people that you care about and feel close to? (For example: talking to friends on the phone, visiting friends or family, going to religious or club meetings) 3 to 5 times a week, H ow stressed are you? Stress is when someone feels tense, nervous, anxious, or can\t sleep at night because their mind is troubled V wil much, I n the past year have you spent more than 2 nights in a row in a custodial, shelter, half-way center, or juvenile correctional facility? N o, D o you feel physically and emotionally safe where you currently live? U nsure, I n the past year, have you been afraid of your partner or ex-partner? I have not had a partner in the past year,?PRAPARE Score: 6 . M iscellaneous: M ethod of learning P referred method of learning: Heri murrell,Demonstration. * Medications: T akingWellbutrin XL 300 MG [...] Particles 1 capsule Orally twice a day Medication List reviewed and reconciled with the patientTaking Wellbutrin XL 300 MG Tablet Extended Release [...] Particles 1 capsule Orally twice a day Medication List reviewed and reconciled with the patient * Allergies: N .K.D.A.no[Allergies Verified] Objective: * Vitals: I nitials: sw, Wt:180, Ht: 70, BMI:25.82, BP:126/82, HR:86, Oxygen sat %:98, Temp:97.2, RR:16, Pain scale:7. * Examination: M ental Status Exam: SENSORIUM AND COGNITION A &Ox4. ATTENTION AND CONCENTRATION N o deficits. APPEARANCE A ppropriate, Neatly dressed and groomed, Appears stated age. ATTITUDE AND BEHAVIOR C ooperative, Pleasant. EYE CONTACT G ood. AFFECT C ongruent with reported mood. MOOD E uthymic. SPEECH QUANTITY A ppropriate. SPEECH QUALITY F luent, Appropriate volume. THOUGHT PROCESS C oherent and goal directed. THOUGHT CONTENT A ppropriate - WNL. LANGUAGE A ppropriate- WNL. SUICIDAL IDEATION D enies suicidal ideation. HOMICIDAL IDEATION D enies homicidal ideation. HALLUCINATIONS D enies hallucinations. INSIGHT G ood. JUDGMENT G ood. Assessment: * Assessment: 1. A DHD (attention deficit hyperactivity disorder) - F90.9 (Primary) 2 . I nsomnia due to mental disorder - F51.05 Plan: * Treatment: 2. I nsomnia due to mental disorder Refill SEROquel Tablet, 100 MG, 1 tablet at bedtime, Orally, Once a day, 30 days, 30 Tablet, Refills 3. Notes: Pt's sleep medicine provider started him [...] Neuroleptic malignant syndrome (NMS) is a rare andlife-threatening reaction to the use of any antipsychotic medications. Symptomsof NMS include but not limited to:High fever (hyperthermia), Stiff, rigidmuscles that can lead to eventual muscle breakdown, AMS, blood pressurechanges, excessive sweating and excessive secretion of saliva.NMS ispotentially life-threatening and requires immediate medical attention in ahospital setting. If this condition is suspected please send pt out to beevaluated further. Second generation antipsychotics (SGAs) have metabolicsyndrome issues with weight gain, increase in prolactin, increased waistcircumference, increased lipids, and increased glucose. Thus routine monitoringof weight, metabolic labs, etc. is indicated. A general rank ordering ofantipsychotics that have the greatest to the least risk of metabolic effects isolanzapine, quetiapine, risperidone, ziprasidone, and aripiprazole. However,weight gain can occur with all of these drugs and considerable variabilityexists among patients receiving the same drug regarding the risk of metaboliceffects. Anti-psychotic agents not only increase the risk of metabolicdisorder, they also increase the risk of CVA, akathisia, and movement disordersincluding EPS or tardive dyskinesia (more common with first generationantipsychotics) and more. * Procedure Codes: * Follow Up: 4 Weeks * * Sign off status: Completed true * Provider: Ho Marcelo [facility] Date: 0 05/26/2024 Generated for Shilpa daley/Darren/Jose Daniel on: 0 05/28/2024 08:36 AM CDT History and Physical Notes * HPI (History of Present Illness) Category Sub-Category Detail Notes Category Not es Abnormal Involuntary Movement Scale Facial and Oral Movements Muscles of Facial Expression: 0- None Lips and Perioral Area: 0- None Jaw: 0- None Tongue: 0- None Extremity Movements Upper (arms, wrists, hands, fingers): 0- None Lower (legs, knees, ankles, toes): 0- No ne Trunk Movements Neck, Shoulders and hips: 0- Non e Global Judgement Severity of abnormal movements overall: 0- None Incapacitation due to abnormal movements : 0- None Patient's awareness of abnormal movement s: 0- No Awareness Dental Status Current problems wit h teeth and/or dentures: Yes needs a procedure but insurance doesn't cover Are dentures usually worn?: No Endentia: Yes 1 tooth missing Do movements disappear with sleep?: No Subjective Experience Examination Category Sub-Category Detail Notes Category Not es Mental Status Exam SENSORIUM AND COGNITION A&Ox4 ATTENTION AND CONCENTRATION No deficits APPEARANCE Appropriate, Neatly dressed and groomed, Appears stated age ATTITUDE AND BEHAVIOR Cooperative, Pleas ant EYE CONTACT Good AFFECT Congruent with repor patricio mood MOOD Euthymic SPEECH QUANTITY Appropriate SPEECH QUALITY Fluent, Appropriate volume THOUGHT PROCESS Coherent and goal di rected THOUGHT CONTENT Appropriate - WNL SUICIDAL IDEATION Denies suicidal idea tion HOMICIDAL IDEATION Denies homicidal dolores ation HALLUCINATIONS Denies hallucination s INSIGHT Good JUDGMENT Good LANGUAGE Appropriate- WNL
--- OUTSIDE RECORDS SUMMARY | 2024-05-28 08:37 | XMS_ITS | Encounter Summary ---
Author Organization [facility] Address [address] [place] [address] Phone Care Team Providers Care Pharmaceutical Engineer Name Role Phone Rajesh Moscoso DO Primary Care Provider [phone] Neisha Mackenzie HEEL CEMENTER MACHINE Unavailable [phone] Encounter Details Date Type Department Care Team (Late st Contact Info) Description 10/15/2023 Orders Only [facility] Scanning, Provider Social History Tobacco Use Types Packs/Day Years Used Date Smoking Tobacco: Former Cigarettes 0.3 10 2 - 2021 Smokeless Tobacco: Never AUDIT-C Answer Date Recorded Q1: How often [...] on file 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 Author CCM Chronic Pain Care Plan Chronic Care Management No change(09/29 7:44 AM CDT) Shahnaz Juarez, RN Note: Problem: Chronic Pain Goals: 1. Minimize further functional decline 2. Maximize quality of life 3. Control pain Strategies: - Activity/exercise program recommendation - Conservative stepwise pain medicine strategy with multi-disciplinary approach - Recommend healthy lifestyle strategies and compensatory methods as needed documented as of this encounter Procedures Procedure Name Priority Date/Time Associated Diagnosis Comments SCAN - LABS 10/15/2023 documented in this encounter Results * SCAN - LABS (10/15/2023) us Provider Scanning Edited Result - Final documented in this encounter Visit Diagnoses Not on filedocumented in this encounter Care Teams Pharmaceutical Engineer Relationship Specialty Start Date End Date Rajesh Moscoso DO PCP - General Internal Medicine 08/17/21 Neisha Mackenzie NP [address] [place] [address] [address] Internal Medicine 10/20/23 Ghislaine Moreau LCSW [address] [facility] [address] Chief Clerk Infectious Diseases 12/03/23 documented as of this encounter
--- OUTSIDE RECORDS SUMMARY | 2024-05-28 08:37 | XMS_ITS | Encounter Summary ---
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 Gender Identity Not on file Sexual Orientation [...] Procedure Name Priority Date/Time Associated Diagnosis Comments GI - RESULT 09/24/2023 documented in this encounter Results * GI - RESULT (09/24/2023) Anatomical Region Laterality Modality Other us Provider Scanning Final Result documented in this encounter Visit Diagnoses Not on filedocumented in this encounter Care Teams Gerentological Physiotherapist Relationship Specialty Start Date End Date Rajesh Moscoso DO PCP - General Internal Medicine 08/17/21 Neisha Mackenzie NP [address] [place] [address] [address] [place] [address] Internal Medicine 10/20/23 Ghislaine Moreau LCSW [address] [facility] [address] Worker'S Compensation Claims Examiner Infectious Diseases 12/03/23 documented as of this encounter
--- OUTSIDE RECORDS SUMMARY | 2024-05-28 08:37 | XMS_ITS | Encounter Summary ---
Author Organization [facility] Address [address] [place] [address] Phone Care Team Providers Care Hat Lining Paster Name Role Phone Rajesh Moscoso DO Primary Care Provider [phone] Neisha Mackenzie AQUACULTURE FARMER Unavailable [phone] Encounter Details Date Type Department Care Team (Late st Contact Info) Description 04/01/2023 Orders Only [facility] Scanning, Provider Social History Tobacco Use Types Packs/Day Years Used Date Smoking Tobacco: Former Cigarettes 0.3 10 2 012 - 2021 Smokeless Tobacco: Never AUDIT-C Answer Date Recorded Q1: How often do you have a drink containing alcohol? Patient declined 03/26/2023 Q2: How many drinks containi ng alcohol do you have on a typical day when you are drinking? Patient does not drink Q3: How often do you have si x or more drinks on one occasion? Never 03/26/2023 Hunger Vital Sign Answer Date Recorded Within the past 12 months, y ou worried that your food would run out before you got the money to buy more. Never true 03/26/19 24 Within the past 12 months, t he food you bought just didn't last and you didn't have money to get more. 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 Gender Identity Not on file Sexual Orientation [...] Date/Time Associated Diagnosis Comments SCAN - LABS 04/01/2023 documented in this encounter Results * SCAN - LABS (04/01/2023) us Provider Scanning Edited Result - Final documented in this encounter Visit Diagnoses Not on filedocumented in this encounter Care Teams Hat Lining Paster Relationship Specialty Start Date End Date Rajesh Moscoso DO PCP - General Internal Medicine 08/17/21 Neisha Mackenzie NP [address] [place] [address] [address] Internal Medicine 10/20/23 Ghislaine Moreau, [facility] [address] [facility] [address] Engine Testing Supervisor Infectious Diseases 12/03/23 documented as of this encounter
--- OUTSIDE RECORDS SUMMARY | 2024-05-28 08:37 | XMS_ITS | Encounter Summary ---
Author Organization [facility] Address [address] [place] [address] Care Team Providers Care Landscaping Crew Leader Name Role Phone Rajesh Moscoso DO Primary Care Provider [phone] Neisha Mackenzie NP Unavailable [phone] Reason for Visit * Reason Onset Date Comments Med Refill 08/29/2023 Encounter Details Date Type Department Care Team (Late st Contact Info) Description 08/29/2023 Telephone [facility] [address] [facility] [address] [place], [place] [id number] Jayme Sevilla MD PhD [address] [facility] [phone] [place] [address] Med Refill Social History Tobacco Use Types Packs/Day Years [...] on file 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
--- OUTSIDE RECORDS SUMMARY | 2024-05-28 08:37 | XMS_ITS ---
Author Organization [facility] Address [address] [place] [address] Care Team Providers Care Coat Examiner Name Role Phone Chico Marceloantha Primary Care Provider [phone] REASON FOR VISIT PRAPARE Assessment Social History Sex Assigned At : Social [...] work (ex. 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 Stress is when someone feels tense, nervous, anxious, or can\t sleep at night because their mind is troubled Very much In the past year have you sp ent more than 2 nights in a row in a retirement, [place] health care facility, penitentiary center, or juvenile correctional facility? No Do you feel physically and e motionally safe where you currently live? Unsure In the past year, have you b een afraid of your partner or ex-partner? I have not had a partner in the past year PRAPARE Score: 6 Encounters Encounter Location Date Provider Diagnosis [address] [place] [address] 05/13/2024 Amara Marcelo Plan Of Treatment Next Appt Details Provider Name:Amara Head th, 06/30/2024 10:00:00 AM, [address] [place], [address], Progress Notes * Alejo OGLESBYOB:1970 ([age] yo M)Acc No.[id number]:05/13/2024 Patient: Vega BOOKER :1970 A ge:54 Y S ex:Male Address:[facility] [place], [address] Subjective: * Chief Complaints: * Gremán BYRD Assessment * Medical History: * Surgical History: * Hospitalization/Major Diagno stic Procedure: * Social History: S ocial Determinants: Germán BYRD D ate Completed/Updated: 0 05/11/2024, W hat is your current housing situation? I have housing, A re you worried about losing your housing? N o, W hat is the highest level of school that you have finished? H igh school diploma or GED, W hat is your current work situation? O therwise unemployed but not seeking work (ex. 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 Stress is when someone feels tense, nervous, anxious, or can\t sleep at night because their mind is troubled V wil much, I n the past year have you spent more than 2 nights in a row in a retirement, [place] facility, penitentiary center, or juvenile correctional facility? N o, D o you feel physically and emotionally safe where you currently live? U nsure, I n the past year, have you been afraid of your partner or ex-partner? I have not had a partner in the past year,?PRAPARE Score: 6 . * Medications: Objective: * Vitals: * Physical Examination: Assessment: Plan: * Treatment: * Procedure Codes: * true * Date: Generated for Shilpa daley/Darren/Francisitting on: 0 05/28/2024 08:36 AM CDT
--- OUTSIDE RECORDS SUMMARY | 2024-05-28 08:37 | XMS_ITS | Encounter Summary ---
Author Organization [facility] Address [address] [place] [address] Phone Care Team Providers Care Price Checker Name Role Phone Rajesh Moscoso DO Primary Care Provider [phone]- [phone] Neisha Mackenzie VAPOR COATER Unavailable [phone] Encounter Details Date Type Department Care Team (Late st Contact Info) Description 04/29/2022 Orders Only [facility] Scanning, Provider Social History Tobacco Use Types Packs/Day Years Used Date Smoking Tobacco: Former Cigarettes 0.3 10 Smokeless Tobacco: Never AUDIT-C Answer Date Recorded Q1: How often do you have a drink containing alcohol? Never 04/26/2022 Q2: How many drinks containi ng alcohol do you have on a typical day when you are drinking? Patient does not drink Q3: How often do you have si x or more drinks on one occasion? Never 04/26/2022 Hunger Vital Sign Answer Date Recorded Within the past 12 months, y ou worried that your food would run out before you got the money to buy more. Never true 03/26/19 23 Within the past 12 months, t he food you bought just didn't last and you didn't have money to get more. 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 Gender Identity Not on file Sexual Orientation [...] Date/Time Associated Diagnosis Comments SCAN - LABS 04/29/2022 documented in this encounter Results * SCAN - LABS (04/29/2022) us Provider Scanning Edited Result - Final documented in this encounter Visit Diagnoses Not on filedocumented in this encounter Care Teams Price Checker Relationship Specialty Start Date End Date Rajesh Moscoso DO PCP - General Internal Medicine 08/17/21 Neisha Mackenzie NP [address] [place] [address] [address] Internal Medicine 10/20/23 Ghislaine Moreau LCSW 620 [facility] [address] Clinical Team Lead Infectious Diseases 12/03/23 documented as of this encounter
--- NOTE | 2024-05-28 08:55 | ECHO_ITS ---
Patient Info Name: Vega Nj Age: 54 years : 1970 Gender: Male Ht: 69 in Wt: 180 lbs BSA: 2.01 m2 HR: 72 bpm BP: 121 / 80 mmHg Heart Rhythm: Sinus Rhythm Technical Quality: Fair Exam Date: 05/28/2024 8:59 AM Exam Location: Echo Lab Patient Status: Outpatient Admit Date: 05/28/2024 Staff Ordering Physician: She Dior DO Termite Helper: Thao Chavira RDCS Attending Provider: She Dior DO Referring Physician: Ovi VARGAS; Exam Type: CA echo doppler color flow Study Info Indications - Central sleep apnea Complete two-dimensional, color flow and Doppler transthoracic echocardiogram is performed. Summary 1. Complete two-dimensional, color flow and Doppler transthoracic echocardiogram is performed. 2. Left ventricular chamber dimension is normal. 3. Left ventricular systolic function is normal, estimated at 60-65%. 4. The left ventricular diastolic function is normal. 5. E/e' 7 is not elevated. 6. The mitral valve has mildly calcified annulus. 7. There is trace mitral valve regurgitation. 8. There is trace tricuspid valve regurgitation. 9. No pulmonary hypertension, estimated pulmonary arterial systolic pressure is 35 mmHg. Left Ventricle E/e' 7 is not elevated. Left ventricular chamber dimension is normal. Left ventricular systolic function is normal, estimated at 60-65%. The left ventricular diastolic function is normal. Right Ventricle Right ventricular systolic function is normal and with normal TAPSE 2.5 cm. Right ventricular chamber dimension is normal. Left Atria Left atrial chamber dimension is normal. Right Atria Right atrial chamber dimension is normal. Aortic Valve The aortic valve is trileaflet. There is no aortic valve stenosis. There is no aortic valve regurgitation. Pulmonic Valve There is no pulmonic regurgitation. Mitral Valve The mitral valve has mildly calcified annulus. There is no mitral valve stenosis. There is trace mitral valve regurgitation. Tricuspid Valve There is trace tricuspid valve regurgitation. No pulmonary hypertension, estimated pulmonary arterial systolic pressure is 35 mmHg. Pericardium/Pleural There is no pericardial effusion. Inferior Vena Cava Normal inferior vena cava with >50% collapse upon inspiration consistent with normal right atrial pressure, 5 mmHg. Aorta The aortic root size at the sinus of Valsalva is normal. Left Ventricular Outflow Tract Name Value Normal LVOT 2D LVOT Diameter 2.1 cm LVOT Doppler LVOT Peak Gradient 6 mmHg LVOT Mean Gradient 3 mmHg LVOT VTI 24 cm LVOT VTI/AV VTI Ratio 0.9 LVOT Stroke Volume 81 ml LVOT CO 16.5 l/min LVOT CI 8.2 l/min/m2 Pulmonic Valve Name Value Normal RVOT Doppler RVOT Peak Gradient 2 mmHg PV Doppler PV Peak Gradient 4 mmHg Mitral Valve Name Value Normal MV Doppler MV Decel Armstrong 368 cm/s2 MV PHT 64 ms MV Area (PHT) 3.4 cm2 4.0-5.0 MV Diastolic Function MV E Peak Velocity 81 cm/s MV A Peak Velocity 77 cm/s MV E/A 1.1 MV Decel Time 221 ms MV Annular TDI MV E/e' (Septal) 8.0 <=8.0 MV E/e' (Lateral) 6.3 <=8.0 MV E/e' (Average) 7.1 Tricuspid Valve Name Value Normal TV Regurgitation Doppler TR Peak Velocity 274 cm/s TR Peak Gradient 30 mmHg Estimated PAP/RSVP RA Pressure 5 mmHg <=5 PA Systolic Pressure 35 mmHg <36 RV Systolic Pressure 35 mmHg <36 Aortic Valve Name Value Normal AV Doppler AV Peak Velocity 145 cm/s AV Peak Gradient 8 mmHg AV Mean Gradient 4 mmHg AV VTI 27 cm AV Area (Cont Eq VTI) 3.0 cm2 >=3.0 AV Area (Cont Eq Jesse) 2.9 cm2 AV Regurgitation 2D LVOT Area 3.4 cm2 Ventricles Name Value Normal LV Dimensions 2D/MM IVS Diastolic Thickness (2D) 0.8 cm 0.6-1.0 LVID Diastole (2D) 3.9 cm 4.2-5.8 LVIW Diastolic Thickness (2D) 0.8 cm 0.6-1.0 LVID Systole (2D) 2.5 cm 2.5-4.0 LVOT Diameter 2.1 cm LV Mass (2D Cubed) 94.23 g 88.00-224.00 LV Mass Index (2D Cubed) 47 g/m2 49-115 Relative Wall Thickness (2D) 0.44 LV Fractional Shortening/Ejection Fraction 2D/MM LV Fractional Shortening (2D) 36 % 25-43 LV EF (2D Teicholz) 66 % 52-72 LV Diastolic Volume (4C MOD) 116 ml LV EF (4C MOD) 61 % LV Diastolic Volume (2C MOD) 132 ml LV EF (2C MOD) 69 % LV Diastolic Volume (BP MOD) 128 ml 62-150 LV Diastolic Volume Index (BP MOD) 64 ml/m2 34-74 LV Systolic Volume (BP MOD) 43 ml 21-61 LV Systolic Volume Index (BP MOD) 22 ml/m2 11-31 LV EF (BP MOD) 66 % 52-72 LV Diastolic Length (4C) 8.5 cm LV Systolic Length (4C) 7.1 cm LV Stroke Volume (4C MOD) 71 ml Atria Name Value Normal LA Dimensions LA Volume (4C A-L) 39 ml LA Volume (BP A-L) 55 ml RA Dimensions RA Area (4C) 19.8 cm2 <=18.0 Report Signatures
== END 2024-05-28 08:34 | disposition home or self-care (01) ==
PROVIDERS: PCP Internal Medicine; Visit Provider Family Medicine
DX: I34.81 Nonrheumatic mitral (valve) annulus calcification (principal); G47.31 Primary central sleep apnea
CPT/HCPCS: 93306

== ENCOUNTER 2024-06-01 08:28 | Outpatient (CLI) | payer OTHER, SELFPAY ==
--- NOTE | ~2024-06-01 | XR_ITS ---
EXAMINATION: XR chest 2V 06/01/2024 08:50 INDICATION: Shortness of breath PROCEDURE: 2 view chest COMPARISON: Comparison to multiple prior studies sequentially, with oldest reviewed study dated 02/27. FINDINGS: The lungs are clear. The cardiomediastinal silhouette is within normal limits. There are no pleural effusions. There is no pneumothorax suspected. There are scattered calcified granulomas of the lungs. IMPRESSION: 1: NO ACUTE CARDIOPULMONARY DISEASE. Reviewed, dictated and finalized at location A.
--- OUTSIDE RECORDS SUMMARY | 2024-06-01 08:46 | XMS_ITS | CONTINUITY OF CARE DOCUMENT ---
Author Name lorrie, lorrie Address Unknown Organization [facility] Address [address] [address] [place] [address] Phone [phone] Care Team Providers Care Red Hat Open Stack Administrator Name Role Phone Ramakrishna MCKOY, Lito Unavailable HOPREJI JEAN-CLAUDE Unavailable [phone] HOPPER JEAN-CLAUDE Unavailable [phone] PROBLEMS Condition Status Date Provider Notes Cardiovascular screening active Lito perez MD Palpitations active Lito Durbin MD Tobacco abuse, quit active Lito Liriano Fibromyalgia ? autoimmune disease? active Joaquin Durbin MD [place] thyroiditis active Lito Durbin MD ENCOUNTERS Date Type Provider Location Encounter Diag nosis - In-person encounter Office Visit Lito Durbin MD [place] [facility] Cardiovascular screeningPalpitationsTobacco abuse, quitFibromyalgia ? autoimmune disease?Etelvina thyroiditis VITAL SIGNS Date Observation Value Provider Body Mass Index (Ratio) 27.32 kg/m2 Markus Can blood pressure, diastolic 80 mm[Hg] [facility], systolic 110 mm[Hg] Genia nicole Boss oxygen saturation, oximetry 98 % Kemal Boss respiratory rate E&M 16 /min [facility] pulse rate 91 /min [facility] weight E&M 185 [lb_av] Kemalam height [...] Payer name Policy type / Coverage type [place] red constitution party ID SELF PAY [id number] TREATMENT PLAN Date Name Performer Cardiology:Will get a thyroid function tests from [place]. Lito Durbin MD Cardiology:He has ge neralized pains including chest pains. With the history of fibromyalgia and possible auto immune disease and father having an [place] at an early age, he merits a [...]
--- OUTSIDE RECORDS SUMMARY | 2024-06-01 08:46 | XMS_ITS | Encounter Summary ---
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
--- OUTSIDE RECORDS SUMMARY | 2024-06-01 08:46 | XMS_ITS | Encounter Summary ---
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
--- OUTSIDE RECORDS SUMMARY | 2024-06-01 08:46 | XMS_ITS | Encounter Summary ---
Author Organization [facility] Healthcare Address [address] [place] [address] Care Team Providers Care Nitrocellulose Maker Name Role Phone Rajesh Moscoso DO Primary Care Provider [phone]- [phone] Neisha Mackenzie NP Unavailable [phone] Reason for Visit * Reason Onset Date Comments Med Refill 08/29/2023 Encounter Details Date Type Department Care Team (Late st Contact Info) Description 08/29/2023 Telephone [facility] [place] [facility] [address] 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
--- OUTSIDE RECORDS SUMMARY | 2024-06-01 08:46 | XMS_ITS | Referral Summary ---
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
--- OUTSIDE RECORDS SUMMARY | 2024-06-01 08:46 | XMS_ITS | Encounter Summary ---
Author Organization [facility] Health Address [address] [place] [address] Care Team Providers Care Seo Analyst Name Role Phone Franchesca Cervantes [facility] Primary Care Provider [phone] Encounter Details Date Type Department Care Team (Late st Contact Info) Description 10/25/2021 [facility] Outpatient Visit [facility] [address] [place] [address] Anthony Olivia MD [address] [facility] [address] [place] [address] Social History Tobacco Use Types Packs/Day Years [...] on filedocumented in this encounter Care Teams Seo Analyst Relationship Specialty Start Date End Date Franchesca Cervantes APRN-[facility] [place] [address] PCP - General Certified Clinical Nurse Specialist 10/10/21 documented as of this encounter
--- OUTSIDE RECORDS SUMMARY | 2024-06-01 08:46 | XMS_ITS | Encounter Summary ---
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
--- OUTSIDE RECORDS SUMMARY | 2024-06-01 08:46 | XMS_ITS | Clinical Summary ---
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
--- OUTSIDE RECORDS SUMMARY | 2024-06-01 08:46 | XMS_ITS | Clinical Summary ---
Author Organization [facility] Address [address] [place] [address] Care Team Providers Care Event Set Up Specialist Name Role Phone Franchesca Cervantes APRN-[facility] Primary Care Provider [phone] Source Comments [facility] [employer],non-owned Affiliates and Associated Physician Practices is amultiple site organization consisting of ambulatory clinics and hospital sitesin [place], [place], [place] and [place]. This disclosure is being madepursuant to the Care Everywhere program and may not contain all information available regarding this patient. Last updated 17.[facility] [employer] Allergies No known active allergies Medications * [...] nebulizer suspensionIndica tions:Chronic rhinitis,Nasal turbinate hypertrophy,Nasa l obstruction,Mallet And Die Cutter marina pansinusitis Mix one vial in 90-120 cc of salt water. Irrigate half into each nostril two times/day. 60 mL 3 11/06/19 24 Active fluticasone propionate (Flonase) 50 MCG/ACT nasal spray Early Branch 2 (two) sprays into each nostril once [...] patient's age to complete this topic Insurance [facility] [place] [id number] Care Teams Event Set Up Specialist Relationship Specialty Start Date End Date Franchesca Cervantes APRN-PHOTOVOLTAIC INSTALLATION TECHNICIAN [address] [place] [address] PCP - General Certified Clinical Nurse Specialist 10/10/21
--- OUTSIDE RECORDS SUMMARY | 2024-06-01 08:46 | XMS_ITS | Encounter Summary ---
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 [address] Weight Control Engineer Infectious Diseases 12/03/23 documented as of this encounter
--- OUTSIDE RECORDS SUMMARY | 2024-06-01 08:46 | XMS_ITS | Encounter Summary ---
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
[2024-06-01 11:06] LABS: Basophils Percent Auto 0.4 % (0.2-1.2); Eosinophils Absolute Auto 0.3 K/mm3 (0-0.3); Eosinophils Percent Auto 3.9 % (0-4.4); Hematocrit 45.5 % (42.0-52.0); Hemoglobin 14.7 g/dL (14.0-18.0); Immature Granulocyte Absolute 0.01 K/mm3 (0.00-0.031); Immature Granulocyte Percent A 0.1 % (0-0.5); Lymphocytes Percent Auto 41.6 % (18.3-44.2); Mean Corpuscular HGB Conc 32.3 g/dl (32-36); Mean Corpuscular Hemoglobin 32.4 pg (26-34); Mean Corpuscular Volume 100.2 fl (80-100); Mean Platelet Volume 9.7 fl (7.4-10.4); Monocytes Absolute Auto 0.6 K/mm3 (0.1-0.6); Monocytes Percent Auto 8.9 % (2.6-8.5); Neutrophils Absolute Auto 3.1 K/mm3 (1.3-6.7); Neutrophils Percent Auto 45.1 % (45.5-73.1); Platelet Count Result 254 k/mm3 (150-375); Red Blood Count 4.54 M/mm3 (4.6-6.20); Red Cell Distribution Width 13.1 % (11.5-14.5)
[2024-06-01 11:14] LABS: Alanine Aminotransferase 16 U/L (6-50); Albumin Level 4.7 g/dL (3.5-5.1); Alkaline Phosphatase 53 U/L (38-126); Anion Gap 10 mmol/L (4-12); Aspartate Amino Transferase 56 U/L (17-59); Bilirubin,Total 0.4 mg/dL (0.2-1.3); Blood Urea Nitrogen 22 mg/dL (9-20); Calcium 9.2 mg/dL (8.4-10.2); Carbon Dioxide 29 mmol/L (22-30); Chloride 100 mmol/L (98-107); Cholesterol 286 mg/dL (0-200); Estimated Glomerular Filt Rate > 60; Glucose 95 mg/dL (65-110); HDL Direct 42 mg/dL; Potassium 4.2 mmol/L (3.4-5.0); Sodium 139 mmol/L (137-145); Triglycerides 157 mg/dL (<150)
[2024-06-01 11:25] LABS: LDL Cholesterol Direct 149 mg/dL
[2024-06-01 11:47] LABS: Hemoglobin A1C 5.6 % (<5.7)
== END 2024-06-01 08:29 | disposition home or self-care (01) ==
LOC: ANHGOSHLAB 08:46 → ANHASCIMG 08:47
PROVIDERS: PCP Internal Medicine; Visit Provider Student in an Organized Health Care Education/Training Program
DX: D64.9 Anemia, unspecified (principal); F41.9 Anxiety disorder, unspecified; R06.02 Shortness of breath; R73.03 Prediabetes; E78.5 Hyperlipidemia, unspecified
CPT/HCPCS: 36415; 71046; 80053; 80061; 83036; 84443; 85025; 85380

== ENCOUNTER 2024-06-21 15:35 | Outpatient (CLI) | payer OTHER, SELFPAY ==
--- OUTSIDE RECORDS SUMMARY | 2024-06-21 15:39 | XMS_ITS | CONTINUITY OF CARE DOCUMENT ---
Author Name lorrie, lorrie Address Unknown Organization [facility] Address [address] [facility] [facility] [address] [place] [address] Phone [phone] Care Team Providers Care Ignition Specialist Name Role Phone Ramakrishna MCKOY, Lito Unavailable HOPREJI JEAN-CLAUDE Unavailable [phone] HOPPER JEAN-CLAUDE Unavailable [phone] PROBLEMS Condition Status Date Provider Notes Cardiovascular screening active Lito perez MD Palpitations active Lito Durbin MD Tobacco abuse, quit active Lito Liriano Fibromyalgia ? autoimmune disease? active Joaquin Durbin MD Etelvina thyroiditis active Lito Durbin MD ENCOUNTERS Date Type Provider Location Encounter Diag nosis - In-person encounter Office Visit Lito Durbin MD [place] [facility] Cardiovascular screeningPalpitationsTobacco abuse, quitFibromyalgia ? autoimmune disease?Etelvina thyroiditis VITAL SIGNS Date Observation Value Provider Body Mass Index (Ratio) 27.32 kg/m2 Markus Can blood pressure, diastolic 80 mm[Hg] [facility], systolic 110 mm[Hg] Genia nicole Boss oxygen saturation, oximetry 98 % [place] Boss respiratory rate E&M 16 /min [place] Boss pulse rate 91 /min [facility] weight E&M 185 [lb_av] [place] height E&M 69 [in_i] Kemal Boss blood [...] Payer name Policy type / Coverage type [place] red libertarian ID SELF PAY [id number] TREATMENT PLAN Date Name Performer Cardiology:Will get a thyroid function tests from [place]. Lito Durbin MD Cardiology:He has ge neralized pains including chest pains. With the history of fibromyalgia and possible auto immune disease and father having an [place] at an early age, he merits a [...]
--- OUTSIDE RECORDS SUMMARY | 2024-06-21 15:39 | XMS_ITS | Encounter Summary ---
Author Organization 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 [address] [address] Internal Medicine 10/20/23 Tejas Wilson MD [address] [place] [address] Consulting Physician Pain Management 09/30/23 Ghislaine Moreau LCSW 620 [facility] [address] Wire Winding Machine Tender Infectious Diseases 12/03/23 documented as of this encounter
--- OUTSIDE RECORDS SUMMARY | 2024-06-21 15:39 | XMS_ITS | Referral Summary ---
Author Organization [facility] Address [address] [place] [id number] Care Team Providers Care Home Advisor Name Role Phone Rajesh Moscoso DO Primary Care Provider [phone] Neisha Mackenzie NP Unavailable [phone] Tejas Wilson MD Unavailable [phone] Encounters Date Type Department Care Team Description 06/09/2024 Telephone [facility] Pain Center at [address] [address] Tejas Wilson MD Scheduling Appointments 06/09/2024 8:17 AM CDT - 06/09/2024 11:59 PM CDT Hospital Encounter [facility] Pain [address] [address] Tejas Wilson MD Lumbar disc disease with radiculopathy (Primary Dx); Ilioinguinal neuralgia of left side Discharge Disposition: Discharge to home or self care 04/26/2024 Telephone [facility] Orthopaedic Surgery [address] [facility] [address] [place] [address] Dave Quiroz from Last 3 Months Allergies Active Allergy Reactions Criticality Noted Date Comments Doxepin Fever Medium 06/09/2024 Serotonin syndrome Medications pramipexole (MIRAPEX) 0.125 mg tablet Take 1 tablet (0.125 mg total) by mouth nightly Takes 4 tabs at bedtime 03/21/19 24 Active albuterol HFA (PROVENTIL HFA,VENTOLIN HFA,PROAIR HFA) 90 mcg/actuation inhaler as needed 02/12/19 24 Active zolpidem (AMBIEN) 10 mg tablet [...] day 60 capsule 1 05/15/19 25 Active Wellbutrin XL 300 mg 24 hr tablet Take 1 tablet (300 mg total) by mouth daily Active cetirizine (ZyrTEC) 10 mg tablet Take 1 tablet (10 mg total) by mouth daily Active acetaminophen (TYLENOL) 500 mg tablet Take 1 tablet (500 mg total) by mouth every 6 (six) hours as needed for pain Active baclofen (LIORESAL) 10 mg tabletIndications :Lumbar radiculopathy TAKE 1 TO 2 TABLETS BY MOUTH EVERY NIGHT AT BEDTIME 60 tablet 3 09/05/19 24 025 Discontin ued(Patie nt Reported) Active Problems Problem Noted Date Diagnosed Date Brain fog 12/08/2023 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 03/26/23 - Left II/IH nerve block - >80% benefit - Assessment & Plan (06/09/2024 9:13 AM CDT): Stable - continue lyrica Assessment & Plan (09/30/2023 8:21 AM CDT): [...] and neural foraminal stenosis. Assessment & Plan (06/09/2024 9:13 AM CDT): Recurrent L5 radicular sx in LLE. Benefit from prior LESI for about a year - ordered today. Continue lyrica. 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 Minimize further functional decline 2. Maximize quality of life 3. Control pain Strategies: - Activity/exercise program recommendation - Conservative stepwise pain medicine strategy with multi-disciplinary approach - Recommend healthy lifestyle strategies and compensatory methods as needed Insurance [facility] Care Teams Home Advisor Relationship Specialty Start Date End Date Rajesh Moscoso DO PCP - General Internal Medicine 08/17/21 Neisha Mackenzie NP [address] [place] [address] [address] D[address] [place] [id number] Internal Medicine 10/20/23 Tejas Wilson MD [address] [place] [address] Consulting Physician Pain Management 09/30/23 Ghislaine Moreau, [facility] [address] [facility] [address] [place] Headgate Operator Infectious Diseases 12/03/23
--- OUTSIDE RECORDS SUMMARY | 2024-06-21 15:39 | XMS_ITS | Clinical Summary ---
Author Organization [facility] Address [address] [place] [phone] Care Team Providers Care Collection Agent Name Role Phone Rajesh Moscoso DO Primary Care Provider [phone] Neisha Mackenzie NP Unavailable [phone] Tejas Wilson MD Unavailable [phone] Allergies Active Allergy Reactions Criticality Noted Date [...] 60 tablet 3 09/05/19 24 025 Discontin ued(Marlenye nt Reported) Active Problems Problem Noted Date [...] Date Type Department Care Team Description 06/09/2024 8:17 AM CDT - 06/09/2024 11:59 PM CDT Hospital Encounter [facility] Pain Center at [place] [address] [facility] [address] [place] [phone] Tejas Wilson MD Lumbar disc disease with radiculopathy (Primary Dx); Ilioinguinal neuralgia of left side Discharge Disposition: Discharge to home or self care 06/09/2024 Telephone [facility] Pain Center at [place] [address] [facility] 1[address] [place] [phone] Tejas Wilson MD Scheduling Appointments 04/26/2024 Telephone [facility] Orthopaedic Surgery [address] [facility] Medical Office [address] [place] [address] Dave Quiroz from Last 3 [...] history of diabetes mellitus - (Added by TW Conv) Heart disease Mother Family history of cardiac disorder - (Added by TW Conv) Relation Name Status Comments Father Mother [...] on file 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 Gender Identity Not on file Sexual Orientation [...] strategies and compensatory methods as needed Insurance [facility] Care Teams Collection Agent Relationship Specialty Start Date End Date Rajesh Moscoso DO PCP - General Internal Medicine 08/17/21 Neisha Mackenzie NP [address] [place] [address] [place] [address] Internal Medicine 10/20/23 Tejas Wilson MD [address] [place] [address] Consulting Physician Pain Management 09/30/23 Ghislaine Moreau, [facility] [address] [facility] [address] Senior Clinician Infectious Diseases 12/03/23
--- OUTSIDE RECORDS SUMMARY | 2024-06-21 15:39 | XMS_ITS | Encounter Summary ---
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 Author [facility] Chronic Pain Care Plan Chronic Care Management [...] on filedocumented in this encounter Care Teams Pilot Supervisor Relationship Specialty Start Date End Date Rajesh Moscoso DO PCP - General Internal Medicine 08/17/21 Neisha Mackenzie NP [address] [place] [address] [address] Internal Medicine 10/20/23 Tejas Wilson MD [address] [place], [place] [id number] Consulting Physician Pain Management 09/30/23 Ghislaine Moreau LCSW [address] [facility] [address] Bulb Grower Infectious Diseases 12/03/23 documented as of this encounter
--- OUTSIDE RECORDS SUMMARY | 2024-06-21 15:39 | XMS_ITS | Clinical Summary ---
Author Organization [facility] Address [address] [place] [address] Care Team Providers Care Well Puller Name Role Phone Rajesh Moscoso Primary Care Provider [phone] Allergies No known active allergies Medications No known medications Encounters Date Type Department Care Team Description 06/19/2024 12:27 PM CDT - 06/19/2024 2:26 PM CDT Emergency [facility] [place] [address] Shar Stapleton MD Abdominal Pain Discharge Disposition: Home or Self Care (Routine Discharge) 06/19/2024 Travel from Last 3 Months Social History Tobacco Use Types Packs/Day Years Used Date Smoking Tobacco: Never Smokeless Tobacco: Never Alcohol Use Standard Drinks/Week Comments Not Currently 0 (1 standard drink = 0.6 oz pur e alcohol) Sex and Gender Information Value Date Recorded Sex Assigned at Male 06/19/2024 12:41 PM CDT 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 Gender Identity Not on file Sexual Orientation Not on file Last Filed Vital Signs Vital Sign Reading Time Taken Comments Blood Pressure 134/87 06/19/2024 2:25 PM CDT Pulse 74 06/19/2024 2:25 PM CDT Temperature 36.6 C (97.9 F) 06/19/2024 11:56 AM CDT Respiratory Rate 18 06/19/2024 2:25 PM CDT Oxygen Saturation 99% 06/19/2024 2:25 PM CDT Inhaled Oxygen Concentration - - Weight 80.1 kg (176 lb 9.4 oz) 06/19/2024 11:56 AM CDT Height 175.3 cm (5' 9 ) 06/19/2024 11:56 AM CDT Body Mass Index 26.08 06/19/2024 11:56 AM CDT Plan of Treatment Health Maintenance Due Date Last Done Comments Colorectal Cancer Screening Colonoscopy (10 Years) 1970 Annual Physical 01/21/1975 Hepatitis C 01/21/1990 Hepatitis B Vaccines (1 of 3 - 19+ 3-dose series) 01/21/1991 DTaP, Tdap and Td Vaccines ( 1 - Tdap) 06/21/2019 06/20/2019, 06/20/2019 Pneumococcal Vaccine: 50+ Years (1 of 1 - PCV) 01/21/2022 Zoster Vaccines (1 of 2) 01/21/2022 COVID-19 Vaccine (1 - 2023-2 5 season) 2023 Meningococcal B Vaccine Aged Out No l onger eligible based on patient's age to complete this topic Meningococcal Vaccine Aged Out No svetlana adrina eligible based on patient's age to complete this topic RSV Immunizations Under 20 Months Aged Out No longer eligible b ased on patient's age to complete this topic Procedures Procedure Name Priority Date/Time Associated Diagnosis Comments CT ABD+PEL W CON STAT 06/19/2024 12:5 2 PM CDT ECG 12-LEAD Routine 06/19/2024 12:38 PM CDT LIPASE STAT 06/19/2024 12:33 PM CDT HC URINALYSIS AUTO W/O MICRO STAT 06/19/2024 12:33 PM CDT TROPONIN, QUANT STAT 06/19/2024 12:33 PM CDT COMPREHENSIVE METABOLIC PANEL STAT 06/19/2024 12:33 PM CDT CBC W/DIFF AUTOMATED STAT 06/19/2024 12:33 PM CDT XR CHEST PORTABLE STAT 06/19/2024 12: 22 PM CDT from Last 3 Months Results * CT ABD+PEL W IV CON ONLY (06/19/2024 12:52 PM CDT) Anatomical Region Laterality Modality Abdomen Computed Tomogra phy 06/19/2024 12:5 5 PM CDT Impressions 06/19/2024 12:58 PM CDT IMPRESSION: 1. No acute findings. No findings to explain the patient's symptoms Ordered By: RAMONA BRAND Interpreted By: Arjun Piper MD, 06/19/2024 12:55 PM Narrative 06/19/2024 12:[address] [address] [address] ABDOMEN AND PELVIS WITH CONTRAST Exam date:06/19/2024 12:39 PM Clinical history: Right upper quadrant pain. Technique: Dynamic helical images of the abdomen and pelvis were obtained. The patient received approximately 100 mL of Isovue 370 nonionic intravenous contrast through an IV in the right antecubital fossa. A dose lowering technique was used for this procedure, which may include, but is not limited to, dose reduction technique, automated exposure control, the use of iterative reconstruction, and ALARA (As Low As Reasonably Achievable) / Image Gently techniques. Comparison: None. FINDINGS: Images of the lower thorax demonstrate the visualized portion of the heart to appear normal. The lung bases are clear. Images of the abdomen demonstrate the overall size and morphology of the liver to be within normal limits. No hepatic lesions are observed. No ascites is seen. The gallbladder is present and normally distended. No stones are observed within its lumen and there is no evidence of cholecystitis or biliary obstruction. The pancreas, spleen, and adrenal glands appear grossly normal. The kidneys are normal in size bilaterally. There is normal symmetric enhancement after the administration of contrast. No stones or hydronephrosis is apparent. Both ureters follow normal expected course through the retroperitoneum. Images of the pelvis demonstrate the urinary bladder to appear normal. The prostate is normal in size. The distal esophagus and stomach appear normal. The small bowel is within normal limits throughout. The appendix is not visualized and likely surgically absent. The colon has a normal appearance. No adenopathy or abnormal fluid collections are seen Procedure Note Arjun Piper MD - 06/19/2024 [facility] [address] [place], [place] [address] CT ABDOMEN AND PELVIS WITH CONTRAST Exam date:06/19/2024 12:39 PM Clinical history: Right upper quadrant pain. Technique: Dynamic helical images of the abdomen and pelvis were obtained.The patient received approximately 100 mL of Isovue 370 nonionicintravenous contrast through an IV in the right antecubital fossa. A doselowering technique was used for this procedure, which may include, but isnot limited to, dose reduction technique, automated exposure control, theuse of iterative reconstruction, and ALARA (As Low As ReasonablyAchievable) / Image Gently techniques. Comparison: None. FINDINGS: Images of the lower thorax demonstrate the visualized portion of the heartto appear normal. The lung bases are clear. Images of the abdomen demonstrate the overall size and morphology of theliver to be within normal limits. No hepatic lesions are observed. Noascites is seen. The gallbladder is present and normally distended. Nostones are observed within its lumen and there is no evidence ofcholecystitis or biliary obstruction. The pancreas, spleen, and adrenalglands appear grossly normal. The kidneys are normal in size bilaterally.There is normal symmetric enhancement after the administration ofcontrast. No stones or hydronephrosis is apparent. Both ureters follownormal expected course through the retroperitoneum. Images of the pelvis demonstrate the urinary bladder to appear normal. Theprostate is normal in size. The distal esophagus and stomach appear normal. The small bowel is withinnormal limits throughout. The appendix is not visualized and likelysurgically absent. The colon has a normal appearance. No adenopathy orabnormal fluid collections are seen IMPRESSION: 1. No acute findings. No findings to explain the patient's symptoms Ordered By: RAMONA BRAND Interpreted By: Arjun Piper MD, 06/19/2024 12:55 PM us Ramona Brand CHRISTMAS TREE CONTRACTOR CT Final Result * ECG 12 lead (06/19/2024 12:38 PM CDT) 06/19/2024 12:3 8 PM CDT Narrative [facility] - 06/19/2024 12:56 PM CDT [place] Test Date: 2024-06-19 Pat Name: NATE OGLESBY Department: 41 Room: INND Gender: Male Patcher [place]ling Ball: [id number] : 1970 Requested By: RAMONA BRAND Order Number: [id number] Reading : Matty Headley Measurements Intervals [place] Rate: 67 P: 40 ND: 148 QRS: 66 QRSD: 90 T: 54 QT: 379 QTc: 401 Interpretive Statements SINUS RHYTHM No previous ECG available for comparison No ischemic changes Preliminary EKG Interpretation by Theresa Mccallum, P.A. Procedure Note Matty Headley MD - 06/19/2024 [facility] Test Date: 2024-06-19 Pat Name: NATE OGLESBY Department: 41 Room: INND Gender: Male Patcher Bowling Ball: [id number] : 1970 Requested By: RAOMNA BRAND Order Number: [id number] Reading : Matty Headley Measurements Intervals [place] Rate: 67 P: 40 ND: 148 QRS: 66 QRSD: 90 T: 54 QT: 379 QTc: 401 Interpretive Statements SINUS RHYTHM No previous ECG available for comparison No ischemic changes Preliminary EKG Interpretation by Theresa Mccallum, P.A. us Ramona Brand CHRISTMAS TREE CONTRACTOR ECG ORDERABLES Final Result [facility] * URINALYSIS (06/19/2024 12:33 PM CDT) SPECIMEN TYPE URINE CLEAN CATCH 06/19/2024 12:31 PM CDT [facility] COLOR (U) LIGHT YELLOW 06/19/2024 12:48 PM CDT [facility] TRANSPARENCY CLEAR 06/19/2024 12:48 PM CDT [facility] SPECIFIC GRAVITY (U) 1.010 1.001 - 1.030 06/19/2024 12:48 PM CDT [facility] U PH 7.0 5.0 - 9.0 06/19/2024 12:48 PM CDT [facility] LEUKOCYTES (U) NEGATIVE NEGATIVE 06/19/2024 12:48 PM CDT [facility] NITRITES NEGATIVE NEGATIVE 06/19/2024 12:48 PM CDT [facility] PROTEIN RANDOM (U) NEGATIVE <30 MG/DL 06/19/2024 12:48 PM CDT [facility] GLUCOSE (U) NORMAL NORMAL MG/DL 06/19/2024 12:48 PM CDT [facility] KETONES MG/DL (U) NEGATIVE NEGATIVE MG/DL 06/19/2024 12:48 PM CDT [facility] UROBILINOGEN NORMAL NORMAL MG/DL 06/19/2024 12:48 PM CDT [facility] BILIRUBIN (U) NEGATIVE NEGATIVE MG/DL 06/19/2024 12:48 PM CDT [facility] BLOOD (U) NEGATIVE NEGATIVE 06/19/2024 12:48 PM CDT [facility] URINE SPECIMEN OBTAINED BY CLEAN CATCH PROCEDURE / Unknown 06/19/2024 12:33 PM CDT us Ramona Brand CHRISTMAS TREE CONTRACTOR URINE ORDERABLES Final Result [facility] [address] [place] [address], [place] [phone] * (ABNORMAL) COMPREHENSIVE METABOLIC PANEL (06/19/2024 12:33 PM CDT) [facility] GLUCOSE 98 70 - 99 MG/DL 06/19/2024 1:14 PM CDT [facility] BUN 8 7 - 18 MG/DL 06/19/2024 1:14 PM CDT [facility] CREATININE S/P/B 0.98 0.7 - 1.3 MG/DL 06/19/2024 1:14 PM CDT [facility] SODIUM S/P/B 129(L) 136 - 145 MMOL/L 06/19/2024 1:14 PM CDT [facility] POTASSIUM S/P/B 4.1 3.5 - 5.1 MMOL/L 06/19/2024 1:14 PM CDT [facility] CHLORIDE S/P/B 96(L) 97 - 115 MMOL/L 06/19/2024 1:14 PM CDT [facility] CO2 27.3 21 - 32 MMOL/L 06/19/2024 1:14 PM CDT [facility] CALCIUM S/P/B 9.0 8.5 - 10.1 MG/DL 06/19/2024 1:14 PM CDT [facility] BILIRUBIN TOTAL S/P/B 0.8 0.2 - 1.2 MG/DL 06/19/2024 1:14 PM CDT [facility] Comment: THIS ASSAY IS NOT RECOMMENDED FOR PATIENTS UNDERGOING TREATMENT WITH ELTROMBOPAG DUE TO THE POTENTIAL FOR FALSELY ELEVATED RESULTS. TOTAL PROTEIN S/P/B 7.9 6.4 - 8.2 G/DL 06/19/2024 1:14 PM CDT [facility] ALBUMIN S/P/B 4.2 3.4 - 5.0 G/DL 06/19/2024 1:14 PM CDT [facility] AST 15 15 - 37 U/L 06/19/2024 1:14 PM CDT [facility] ALT 18 16 - 60 U/L 06/19/2024 1:14 PM CDT [facility] ALKALINE PHOSPHATASE S/P/B 66 50 - 136 U/L 06/19/2024 1:14 PM CDT [facility] ANION GAP 5.7 2 - 10 MMOL/L 06/19/2024 1:14 PM CDT [facility] BUN CREATININE RATIO 8.2 6 - 26 06/19/2024 1:14 PM CDT [facility] A/G RATIO 1.1 1.0 - 2.0 RATIO 06/19/2024 1:14 PM CDT [facility] GFR ESTIMATE >90 >90 ML/MIN/1.7 3 M2 06/19/2024 1:14 PM CDT [facility] Comment: NOTE: eGFR is not calculated for patients <18 years of age or gender unknown. This is an estimated GFR calculation using the new CKD EPI creatinine equation without race and so does not require a correction factor for race. This estimated GFR should not be used for calculating drug doses. 06/19/2024 12:3 3 PM CDT us Ramona Brand NP LABORATORY Final Result [facility] [address] [place] [address], [place] [phone] * (ABNORMAL) CBC W/DIFF AUTOMATED (06/19/2024 12:33 PM CDT) WBC 6.65 4.5 - 11.0 x10'3/uL 06/19/2024 12:49 PM CDT [facility] RBC 4.90 4.70 - 6.10 x10'6/uL 06/19/2024 12:49 PM CDT [facility] HGB 15.8 14.0 - 18.0 G/DL 06/19/2024 12:49 PM CDT [facility] HCT 45.3 43.0 - 54.0 % 06/19/2024 12:49 PM CDT [facility] MCV 92.4 80.0 - 94.0 FL 06/19/2024 12:49 PM CDT [facility] MCH 32.2(H) 27.0 - 31.0 PG 06/19/2024 12:49 PM CDT [facility] MCHC 34.9 32.0 - 36.0 G/DL 06/19/2024 12:49 PM CDT [facility] RDW 11.9 11.5 - 14.5 % 06/19/2024 12:49 PM CDT [facility] PLT 261 130 - 400 x10'3/uL 06/19/2024 12:49 PM CDT [facility] MPV 8.7(L) 9.3 - 12.2 FL 06/19/2024 12:49 PM CDT [facility] DIFFERENTIAL TYPE AUTOMATED DIFFERENTIAL 06/19/2024 12:49 PM CDT [facility] NEUTROPHILS % 43.6 % 06/19/2024 12:49 PM CDT [facility] LYMPHOCYTES % 43.2 % 06/19/2024 12:49 PM CDT [facility] MONOCYTES % 7.8 % 06/19/2024 12:49 PM CDT [facility] EOSINOPHILS 4.7 % 06/19/2024 12:49 PM CDT [facility] BASOPHILS 0.5 % 06/19/2024 12:49 PM CDT [facility] IMMATURE GRANS % 0.2 % 06/20/19 12:49 PM CDT [facility] ABS. NEUTROPHILS 2.91 1.80 - 7.70 x10'3/uL 06/19/2024 12:49 PM CDT [facility] ABS. LYMPHOCYTES 2.87 1.00 - 4.80 x10'3/uL 06/19/2024 12:49 PM CDT [facility] ABS. MONOCYTES 0.52 0.30 - 0.82 x10'3/uL 06/19/2024 12:49 PM CDT [facility] ABS. EOSINOPHILS 0.31 0.04 - 0.54 x10'3/uL 06/19/2024 12:49 PM CDT [facility] ABS. BASOPHILS 0.03 0.01 - 0.08 x10'3/uL 06/19/2024 12:49 PM CDT [facility] ABS. IMMATURE GRANULOCYTES 0.01 0.00 - 0.49 x10'3/uL 06/19/2024 12:49 PM CDT [facility] 06/19/2024 12:3 3 PM CDT us Ramona Brand NP LABORATORY Final Result [facility] [address] [place] [address], * TROPONIN, QUANT (06/19/2024 12:33 PM CDT) TROPONIN I HIGH SENSITIVITY 3 <79 ng/L 06/19/2024 1:14 PM CDT [facility] Comment: HIGH DOSES OF BIOTIN, TROPONIN-SPECIFIC AUTOANTIBODIES, AND ANTIBODY THERAPY CONTAINING HAMA MAY INTERFERE WITH THIS TEST RESULT. CORRELATION TO CLINICAL HISTORY AND PRESENTATION RECOMMENDED. 06/19/2024 12:3 3 PM CDT Ramona Brand CHRISTMAS TREE CONTRACTOR LABORATORY Final Result Performing Organization Address City/[facility]/ZIP Co de Phone Number [facility] [address] [place] [address], [place] [phone] * LIPASE (06/19/2024 12:33 PM CDT) LIPASE 35 13 - 75 UNITS/L 06/19/2024 1:14 PM CDT [facility] 06/19/2024 12:3 3 PM CDT Ramona Brand CHRISTMAS TREE CONTRACTOR LABORATORY Final Result Performing Organization Address [facility] Co de Phone Number [facility] [address] [place] [address], [place] [phone] * XR CHEST PORTABLE (06/19/2024 12:22 PM CDT) Anatomical Region Laterality Modality Chest Radiographic Fior ging 06/19/2024 12:2 6 PM CDT Impressions 06/19/2024 12:26 PM CDT IMPRESSION: No acute findings Ordered By: RAMONA BRAND Interpreted By: Arjun Piper MD, 06/19/2024 12:26 PM Narrative 06/19/2024 12:26 PM CDT [facility] [address] [place], [place] [address] SINGLE VIEW OF THE CHEST Clinical history: Right upper quadrant pain Comparison: None A single view of the chest demonstrates the cardiac silhouette to be normal in size and appearance. The pulmonary vessels are normally distributed. The Lungs are clear. No consolidations or effusions are seen. Procedure Note Arjun Piper MD - 06/19/[address] [address] SINGLE VIEW OF THE CHEST Clinical history: Right upper quadrant pain Comparison: None A single view of the chest demonstrates the cardiac silhouette to benormal in size and appearance. The pulmonary vessels are normallydistributed. The Lungs are clear. No consolidations or effusions are seen. IMPRESSION: No acute findings Ordered By: RAMONA BRAND Interpreted By: Arjun Piper MD, 06/19/2024 12:26 PM Ramona Brand CHRISTMAS TREE CONTRACTOR GENERAL IMAGING Final Result from Last 3 Months Insurance Care Teams Well Puller Relationship Specialty Start Date End Date Rajesh Moscoso DO [address] [place] [address] PCP - General INTERNAL MEDICINE 06/19/24
--- OUTSIDE RECORDS SUMMARY | 2024-06-21 15:39 | XMS_ITS | Encounter Summary ---
Author Organization [facility] Address [address] [place] [address] Care Team Providers Care Tripe Finisher Name Role Phone Franchesca Cervantes APRNCOX BRANSON Primary Care Provider [phone] Encounter Details Date Type Department Care Team (Late st Contact Info) Description 10/25/2021 [facility] Outpatient Visit [facility] [address] [place] [address] Anthony Olivia MD [address] [facility] [address] [place] [address] Social History Tobacco Use Types Packs/Day Years [...] on filedocumented in this encounter Care Teams Tripe Finisher Relationship Specialty Start Date End Date Franchesca Cervantes APRN-[facility] [place] [address] PCP - General Certified Clinical Nurse Specialist 10/10/21 documented as of this encounter
--- OUTSIDE RECORDS SUMMARY | 2024-06-21 15:39 | XMS_ITS | Clinical Summary ---
Author Organization [facility] Address [address] [facility] [place] [address] Care Team Providers Care Teacher Home Therapy Name Role Phone Franchesca Cervantes APRN-[facility] Primary Care Provider [phone] Source Comments [facility],non-owned Affiliates and Associated Physician Practices is amultiple site organization consisting of ambulatory clinics and hospital sitesin [place], [place], [place] and [place]. This disclosure is being madepursuant to the Care Everywhere program and may not contain all information available regarding this patient. Last updated 17.[facility] Allergies No known active allergies Medications * [...] nebulizer suspensionIndica tions:Chronic rhinitis,Nasal turbinate hypertrophy,Nasa l obstruction,Dry Curer marina pansinusitis Mix one vial in 90-120 cc of salt water. Irrigate half into each nostril two times/day. 60 mL 3 11/06/19 24 Active fluticasone propionate (Flonase) 50 MCG/ACT nasal spray [place] 2 (two) sprays into each nostril once [...] patient's age to complete this topic Insurance [facility] [address] Care Teams Teacher Home Therapy Relationship Specialty Start Date End Date Franchesca Cervantes APRN-ANALYTICAL ENGINEER [address] [place] [address] PCP - General Certified Clinical Nurse Specialist 10/10/21
--- OUTSIDE RECORDS SUMMARY | 2024-06-21 15:40 | XMS_ITS | Encounter Summary ---
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
--- OUTSIDE RECORDS SUMMARY | 2024-06-21 15:40 | XMS_ITS | Encounter Summary ---
Author Organization [facility] Healthcare Address [address] [place] [address] Care Team Providers Care Parking Line Painter Name Role Phone Rajesh Moscoso DO Primary Care Provider [phone] Neisha Mackenzie NP Unavailable [phone] Tejas Wilson MD Unavailable [phone] Reason for Visit * Reason Onset Date Comments Med Refill 08/29/2023 Encounter Details Date Type Department Care Team (Late st Contact Info) Description 08/29/2023 Telephone [facility] [address] 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
--- OUTSIDE RECORDS SUMMARY | 2024-06-21 15:40 | XMS_ITS | Encounter Summary ---
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 Author CCM Chronic Pain Care Plan Chronic Care Management No change(09/29 7:44 AM CDT) Shahnaz Juarez, TOMASA Note: Problem: Chronic Pain Goals: 1. [...] on filedocumented in this encounter Care Teams Arcade Games Mechanic Relationship Specialty Start Date End Date Rajesh Moscoso DO PCP - General Internal Medicine 08/17/21 Neisha Mackenzie NP [address] [place] [address] [address] Internal Medicine 10/20/23 Tejas Wilson MD [address] [place] [address] Consulting Physician Pain Management 09/30/23 DEANNA SommerW [address] [facility] [address] Retail Account Representative Infectious Diseases 12/03/23 documented as of this encounter
--- OUTSIDE RECORDS SUMMARY | 2024-06-21 15:40 | XMS_ITS | Encounter Summary ---
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
[2024-06-21 21:00] LABS: Blood Urea Nitrogen 14 mg/dL (9-20); Carbon Dioxide 30 mmol/L (22-30); Chloride 99 mmol/L (98-107); Estimated Glomerular Filt Rate > 60
[2024-06-21 21:01] LABS: Anion Gap 8 mmol/L (4-12); Glucose 94 mg/dL (65-110); Potassium 4.2 mmol/L (3.4-5.0); Sodium 137 mmol/L (137-145)
[2024-06-21 21:57] LABS: Folic Acid > 20.0 ng/mL (2.76->20)
== END 2024-06-21 15:36 | disposition home or self-care (01) ==
LOC: ANHGOSHLAB 15:37
PROVIDERS: PCP Internal Medicine; Visit Provider Clinical Nurse Specialist
DX: R20.0 Anesthesia of skin (principal); R20.2 Paresthesia of skin; E87.1 Hypo-osmolality and hyponatremia
CPT/HCPCS: 36415; 80048; 82607; 82746

== ENCOUNTER 2024-10-09 10:12 | Emergency (ER) | payer MEDICARE, MEDICAID, SELFPAY ==
[2024-10-09 10:31] VITALS: BP 123/79; PULSE 68; RESP 14; TEMP 37; O2SAT 99
--- NOTE | 2024-10-09 10:54 | ED_ITS ---
HPI - General Adult General Chief complaint: Unspecified Stated complaint: R Arm Pain Time Seen by Provider: 10/09/24 10:56 Source: patient, RN notes reviewed and old records reviewed Mode of arrival: ambulatory Limitations: no limitations History of Present Illness HPI narrative: 54 year old male presents to express care with complaints of some mild discomfort, irritation with some firmness to the vein in his right arm [facility]. Patient reports that he had had a previous infusion of same sunflower oil preparation that is suppose to help lower cholesterol a few weeks prior without problems. Patient states that this last infusion burned and has had the irritaion and firmness of vein in right hand running up arm to axilla. Patient denies any tingling or numbness to his right arm or hand patient has strong pulses to arm from axilla to radial pulses. MD complaint: concern over firmness of vein to right arm after having infusion a t medical Onset (ago): week(s) (2) Location: right and upper extremity Severity scale (1-10): 2 Treatments prior to arrival: none Related Data Home Medications ?Medication ?Instructions ?Recorded ?Confirmed ?Last Taken ?Type multivitamin 1 tablet PO DAILY 06/18/21 0 09/13/24 09/22/23 History ubidecarenone-omega 3-vit E 25 1 cap PO DAILY 06/19/21 09/13/24 09/22/23 History mg-150 (90-60) mg-200 unit capsule (Co P-[id number] E-Fish Oil) pregabalin 150 mg capsule (Lyrica) 150 mg PO BID 01/2909/13/24 09/22/23 History bupropion HCl 300 mg 24 hr tablet, 300 mg PO 06/01/24 09/13/24 Unknown History extended release quetiapine 100 mg tablet 100 mg PO 06/01/24 09/13/24 Unknown History alprazolam 0.5 mg tablet mg 10/09/24 Unknown History doxepin 10 mg capsule mg 10/09/24 Unknown History Allergies Allergy/AdvReac Type Severity Reaction Status Date / Time doxepin Allergy Anxiety Verified 10/09/24 10:19 suvorexant (From [facility]) AdvReac Severe Nightmare Verified 10/09/24 10:19 Review of Systems Review of Systems: CONSTITUTIONAL: Denies fever, chills, or sweats. EYES: Denies visual changes, redness, or discharge. ENT: Denies rhinorrhea, congestion, sore throat, or otalgia. CARDIOVASCULAR: Denies chest pain, palpitations, or edema. RESPIRATORY: Denies cough or dyspnea. GASTROINTESTINAL: Denies abdominal pain, nausea, vomiting, or diarrhea. GENITOURINARY: Denies dysuria or hematuria. SKIN: Denies rash or itching.has firmness to vein in right arm from hand to axilla area from infusion 2 weeks ago, small area of light yellowish bruising along veing in upper right arm. MUSCULOSKELETAL: Denies back pain, joint pain, or myalgia. NEUROLOGIC: Denies headache, numbness, or weakness. PSYCHIATRIC: Denies anxiety or depression. All systems reviewed & are unremarkable except as noted in HPI and below PMFSH Past Medical History Medical History Hypersomnia Genetic testing Fatigue COVID-19 Left groin pain BMI 26.0-26.9,adult Leukocytosis Fibromyalgia Anemia Encounter to establish care Screening for lipoid disorders Iron deficiency anemia Myalgia Abdominal hernia Restless leg syndrome Herniated disc History of back problems Arthritis Surgical History Surgical History History of left inguinal hernia repair H/O adenoidectomy H/O hernia repair Family History Family History Mother Family history of rheumatoid arthritis Diabetes mellitus Father Asthma Hypertension Heart problem Chronic Maribell-Cruz virus (EBV) infection syndrome Guillain Cruz? syndrome Raynaud disease Other Family history of cardiovascular disease Social History Social History Smoking packs per day: 1 Smoking cigarettes per day: 20.0 Years smoked: 10 Smoking pack-years: 10.00 Smoking status: Former smoker Tobacco type: cigarettes Alcohol intake: never Substance use: former Substance use type: marijuana Do You Feel Safe in your Home?: Yes Lack of Transportation: No Lack of Food: Never True Current Housing: I Have Housing Concerned About Future Housing: YES Difficulty Paying Gas/Electric Bills: YES Difficulty Paying for Meds: No Currently Unemployed: No Education: Associate Degree Difficulty w/ Childcare or Family Care: No Living arrangements: with family Occupation/Education: occupation 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 There is no relevant family history pertinent to the presenting complaint Exam Narrative: GENERAL: Well-appearing, well-nourished, and in no acute distress. HEAD: Normocephalic, atraumatic. EYES: PERRLA and EOMI. ENT: Nares clear, no rhinorrhea or epistaxis. Mucous membranes moist. NECK: Supple.no lymphadenopathy CHEST: Clear to auscultation. No respiratory distress.SAO2 99% on room air HEART: Regular rate and rhythm. No murmur heard. Normal peripheral pulses. ABDOMEN: Soft, nontender, nondistended, normal active bowel sounds. EXTREMITIES: Normal range of motion. No edema. SKIN: Warm, dry, no rash. some firmness palpated to vein in right arm from hand to axilla with no redness or warmth to area, strong pulses in right arm with no complaints of tingling or numbness. small area of bruising along vein in upper arm. Denies any acute tenderness to his right arm at this time at times area is achy which has improved from initial discomfort. NEURO: No focal deficits. Alert and oriented x3. Course Course Emergency Course: Patient is aware of diagnosis, understands and agrees to treatment plan.? Anticipatory guidance given.? Patient agrees to follow-up as directed and is aware of reasons to seek care at the emergency department. Portions of this record may have been created with voice recognition software Level of Care: Express Care Visit Vital Signs Vital signs: Vital Signs Temperature 37.0 C 10/09/24 10:31 Pulse Rate 68 10/09/24 10:31 Respiratory Rate 14 10/09/24 10:31 Blood Pressure 123/79 10/09/24 10:31 Pulse Oximetry 99 10/09/24 10:31 Oxygen Delivery Room Air 10/09/24 10:31 Temperature 37.0 C 10/09/24 10:31 Pulse Rate 68 10/09/24 10:31 Respiratory Rate 14 10/09/24 10:31 Blood Pressure 123/79 10/09/24 10:31 Pulse Oximetry 99 10/09/24 10:31 Oxygen Delivery Room Air 10/09/24 10:31 Reviewed Medical Decision Making MDM Narrative Medical decision making narrative: Exam findings and imaging show no acute concerns or changes; patient is non- toxic appearing and is in no distress.? Patient is appropriate for outpatient treatment and follow-up Differential Diagnosis Differential Diagnosis: right arm pain, irritation to vein in right arm from caustic solution, Medical Records Medical records reviewed: Yes I reviewed the external patient's medical records. Vital Signs Vital Signs: Vital Signs Temperature 37.0 C 10/09/24 10:31 Pulse Rate 68 10/09/24 10:31 Respiratory Rate 14 10/09/24 10:31 Blood Pressure 123/79 10/09/24 10:31 Pulse Oximetry 99 10/09/24 10:31 Oxygen Delivery Room Air 10/09/24 10:31 Temperature 37.0 C 10/09/24 10:31 Pulse Rate 68 10/09/24 10:31 Respiratory Rate 14 10/09/24 10:31 Blood Pressure 123/79 10/09/24 10:31 Pulse Oximetry 99 10/09/24 10:31 Oxygen Delivery Room Air 10/09/24 10:31 reviewed Critical Care Time Critical Care Time Critical Care Time: No Discharge Plan Discharge Clinical Impression: Right upper limb pain, Vein symptom Patient Disposition: Home Condition: Stable Instructions: Antibiotic Form, Arm Pain (ED) Additional Instructions: Tylenol or Ibuprofen for any fever or pain watch for any infection--redness, swelling, drainage Naproxen BID for pain follow up with PCP in 7-10 days for a wound check recheck if develop fever, chills, increasing symptom Go to the ER if your symptoms become worse of if ANY new symptoms develop If your symptoms persist, change or worsen significantly before you can contact your personal physician then please, without delay, go to the emergency department for further evaluation. Follow-up with PCP in 7-10 days or sooner if needed Patient Language: French Prescriptions: No Action doxepin 10 mg capsule alprazolam 0.5 mg tablet pregabalin [Lyrica] 150 mg capsule 150 mg PO BID bupropion HCl 300 mg tablet extended release 24 hr 300 mg PO quetiapine 100 mg tablet 100 mg PO multivitamin Tablet 1 tablet PO DAILY Co R-96-Zsguund E-Fish Oil 25-150-200 mg-mg-unit capsule 1 cap PO DAILY zolpidem 12.5 mg tablet,ext release multiphase 12.5 mg PO QHS Qty: 30 2RF cyclobenzaprine 10 mg tablet 10 mg PO TID Qty: 30 0RF Follow-up/Referrals: Rajesh Moscoso DO [Primary Care Provider, Internal Medicine] Time of Disposition: 11:13 Quality Delevan Coma Scale Eyes: Open Verbal: Oriented and Alert Motor: Follows Commands Sophia Coma Total Score: 15
== END 2024-10-09 11:15 | disposition home or self-care (01) ==
PROVIDERS: Emergency Provider Registered Nurse; PCP Internal Medicine
DX: M79.601 Pain in right arm (principal); M79.7 Fibromyalgia; G25.81 Restless legs syndrome; M19.90 Unspecified osteoarthritis, unspecified site; Z86.16 Personal history of COVID-19; Z87.891 Personal history of nicotine dependence
CPT/HCPCS: 99211; G0463

== ENCOUNTER 2024-10-13 11:52 | Outpatient (CLI) | payer MEDICARE, SELFPAY ==
--- NOTE | ~2024-10-13 | US_ITS ---
Right Upper Extremity Venous Doppler Technique: Real-time sonographic and color Doppler images of the upper extremity veins were performed. Spectral waveform analysis was performed. Findings: The internal jugular and subclavian veins are patent without intraluminal filling defect to suggest thrombus. There is normal venous outflow. The axillary, brachial, basilic radial, and ulnar veins demonstrate normal venous flow without occlusion. There is normal compressibility and augmentation. Impression: No evidence of right upper extremity DVT. Reviewed, dictated and finalized at location N. Impression: No evidence of right upper extremity DVT.
--- OUTSIDE RECORDS SUMMARY | 2024-10-13 13:35 | XMS_ITS | Encounter Summary ---
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 Author [facility] Chronic Pain Care Plan Chronic Care Management On track(2024 10:43 AM CDT) No Shahnaz Esparza, TOMASA Note: [...] on filedocumented in this encounter Care Teams Movie Extra Relationship Specialty Start Date End Date Rajesh Moscoso DO PCP - General Internal Medicine 08/17/21 Neisha Mackenzie NP [address] [place] [address] [address] Internal Medicine 10/20/23 Tejas Wilson MD [address] [place], [place] [address] Consulting Physician Pain Management 09/30/23 Ghislaine Moreau LCSW [address] [facility] [address] Community Mental Health Worker Infectious Diseases 12/03/23 documented as of this encounter
--- OUTSIDE RECORDS SUMMARY | 2024-10-13 13:35 | XMS_ITS | Clinical Summary ---
Author Organization [facility] Address [address] [place] [address] Care Team Providers Care Entertainment Production Professional Name Role Phone Rajesh Moscoso DO Primary Care Provider [phone] Allergies No known active allergies Medications No known medications Social History Tobacco Use Types Packs/Day Years Used Date Smoking Tobacco: Never Smokeless Tobacco: Never Alcohol Use Standard Drinks/Week Comments Not Currently 0 (1 standard drink = 0.6 oz pur e alcohol) Sex and Gender Information Value Date Recorded Sex Assigned at Male 06/19/2024 12:41 PM CDT 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
--- OUTSIDE RECORDS SUMMARY | 2024-10-13 13:36 | XMS_ITS | Encounter Summary ---
Author Organization [facility] Health Address [address] [place] [address] Care Team Providers Care Brick Extruder Operator Name Role Phone Franchesca Cervantes APRN-HOURLY ASSOCIATE Primary Care Provider [phone] Encounter Details Date Type Department Care Team (Late Contact Info) Description 10/25/2021 [facility] Outpatient Visit [facility] [address] [place] [address] Anthony Olivia MD [address] [facility] [address] [place] [address] Social History Tobacco Use Types Packs/Day Years Used Date Smoking Tobacco: Never Smokeless Tobacco: Never Sex and Gender Information Value Date Recorded Sex Assigned at Not on file Legal Sex Male 2:41 PM CDT Gender Identity Not on file Sexual Orientation Not on file documented as of this encounter Plan of Treatment Upcoming Encounters Date Type Department Care Team (Late Contact Info) Description 10/15/2024 11:00 AM CDT Office Visit [facility] - Neurology [address] [facility] [place] [id number] Laine Montaño MD [address] [facility] [address] documented as of this encounter Visit Diagnoses Not on filedocumented in this encounter Care Teams Brick Extruder Operator Relationship Specialty Start Date End Date Franchesca Cervantes APRN-CNS [address] [place] [address] PCP - General Certified Clinical Nurse Specialist 10/10/21 documented as of this encounter
--- OUTSIDE RECORDS SUMMARY | 2024-10-13 13:36 | XMS_ITS | Encounter Summary ---
Author Organization [facility] Healthcare Address [address] [place] [address] Care Team Providers Care Warehouser Name Role Phone Rajesh Moscoso DO Primary Care Provider [phone] Neisha Mackenzie NP Unavailable [phone] Tejas Wilson MD Unavailable [phone] Reason for Visit * Reason Onset Date Comments Med Refill 08/29/2023 Encounter Details Date Type Department Care Team (Late st Contact Info) Description 08/29/2023 Telephone [facility] [address] [facility] [address] [place], [place] [id number] Jayme Sevilla MD PhD [address] [place] [address] Med Refill Social History Tobacco Use Types [...] on file 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 Author CCM Chronic Pain Care Plan Chronic Care Management On track(2024 10:43 AM CDT) Shahnaz Juarez, TOMASA Note: Problem: Chronic Pain Goals: 1. Minimize further functional decline 2. Maximize quality of life 3. Control pain Strategies: - Activity/exercise program recommendation - Conservative stepwise pain medicine strategy with multi-disciplinary approach - Recommend healthy lifestyle strategies and compensatory methods as needed documented as of this encounter Visit Diagnoses Not on filedocumented in this encounter Care Teams Warehouser Relationship Specialty Start Date End Date Rajesh Moscoso DO PCP - General Internal Medicine 08/17/21 Neisha Mackenzie NP [facility] [address] [address] Internal Medicine 10/20/23 Tejas Wilson MD [address] [place] [address] Consulting Physician Pain Management 09/30/23 Ghislaine Moreau LCSW [address] [facility] [address] Shop Hand Infectious Diseases 12/03/23 documented as of this encounter
--- OUTSIDE RECORDS SUMMARY | 2024-10-13 13:36 | XMS_ITS | Clinical Summary ---
Author Organization [facility] Address [address] [facility] [place] [address] Care Team Providers Care Anatomical Embalmer Name Role Phone Franchesca Cervantes APRN-[facility] Primary Care Provider [phone] Source Comments [facility] [employer],non-owned Affiliates and Associated Physician Practices is amultiple site organization consisting of ambulatory clinics and hospital sitesin [place], [place], [place] and [place]. This disclosure is being madepursuant to the Care Everywhere program and may not contain all information available regarding this patient. Last updated 17.[facility] [employer] Allergies No known active allergies Medications * [...] nebulizer suspensionIndica tions:Chronic rhinitis,Nasal turbinate hypertrophy,Nasa l obstruction,Sorting Machine Operator marina pansinusitis Mix one vial in 90-120 cc of salt water. Irrigate half into each nostril two times/day. 60 mL 3 11/06/19 24 Active fluticasone propionate (Flonase) 50 MCG/ACT nasal spray [place] 2 (two) sprays into each nostril once [...] 8:07 AM CDT Height 175.3 cm (5' 9) 11/06/2023 8:07 AM CDT Body Mass Index 27.62 11/06/2023 8:07 AM CDT Plan of Treatment Upcoming Encounters Date Type Department Care Team (Late st Contact Info) Description 10/15/2024 11:00 AM CDT Office Visit [facility] - Neurology [address] [place] [address], [facility] [place] [id number] Laine Montaño MD [address] [facility] [place] [address] Health Maintenance Due Date Last Done Comments [...] PNEUMOCOCCAL VACCINE 50+ (2 of 2 - PCV20 or PCV21) 01/21/2022 02/11/2016 ZOSTER VACCINE (1 of 2) 01/21/2022 COVID-19 VACCINE (1 - 2023-2 5 season) 2023 SCREENING FOR DIABETES 11/06/2023 DEPRESSION SCREENING 02/11/2024 MEDICARE AWV CALENDAR YEAR 2024 INFLUENZA VACCINE (#1) 2024 DTAP/TDAP/TD VACCINES (2 - T d [...] patient's age to complete this topic Insurance [facility] MEDICARE ADV Care Teams Anatomical Embalmer Relationship Specialty Start Date End Date Franchesca Cervantes APRN-MANAGER RESPIRATORY [address] [place] [address] PCP - General Certified Clinical Nurse Specialist 10/10/21
--- OUTSIDE RECORDS SUMMARY | 2024-10-13 13:36 | XMS_ITS | Encounter Summary ---
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 Author CCM Chronic Pain Care Plan Chronic Care Management On track(2024 10:43 AM CDT) Shahnaz Juarez, RN Note: Problem: [...] on filedocumented in this encounter Care Teams Tableau Architect Relationship Specialty Start Date End Date Rajesh Moscoso DO PCP - General Internal Medicine 08/17/21 Neisha Mackenzie NP [facility] [address] [address] Internal Medicine 10/20/23 Tejas Wilson MD [address] [place] [address] Consulting Physician Pain Management 09/30/23 Ghislaine Moreau LCSW [address] [facility] [address] Blanket Cutting Machine Operator Infectious Diseases 12/03/23 documented as of this encounter
--- OUTSIDE RECORDS SUMMARY | 2024-10-13 13:36 | XMS_ITS | Encounter Summary ---
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 Author CCM Chronic Pain Care Plan Chronic Care Management On track(2024 10:43 AM CDT) Shahnaz Juarez RN Note: Problem: Chronic Pain Goals: 1. [...] on filedocumented in this encounter Care Teams Rig Superintendent Relationship Specialty Start Date End Date Rajesh Moscoso DO PCP - General Internal Medicine 08/17/21 Neisha Mackenzie NP [address] [place] [address] [address] Internal Medicine 10/20/23 Tejas Wilson MD [address] [place] [address] Consulting Physician Pain Management 09/30/23 DEANNA SommerW [address] [facility] [address] Curator Horticultural Museum Infectious Diseases 12/03/23 documented as of this encounter
--- OUTSIDE RECORDS SUMMARY | 2024-10-13 13:36 | XMS_ITS | Clinical Summary ---
Author Organization [facility] Address [address] [place] [address] Care Team Providers Care High School Business Teacher Name Role Phone Rajesh Moscoso DO Primary Care Provider [phone] Neisha Mackenzie NP Unavailable [phone] Tejas [place] MD Unavailable Allergies Active Allergy Reactions Criticality Noted Date [...] SPASMS 60 tablet 1 02/17/19 25 Active Wellbutrin XL 300 mg 24 hr tablet Take 1 tablet (300 mg total) by mouth daily Active cetirizine (ZyrTEC) 10 mg tablet Take 1 tablet (10 mg total) by mouth daily Active acetaminophen (TYLENOL) 500 mg tablet Take 1 tablet (500 mg total) by mouth every 6 (six) hours as needed for pain Active pregabalin (LYRICA) 150 mg capsuleIndication s:Lumbar disc disease with radiculopathy Take 1 capsule (150 mg total) by mouth 2 (two) times a day 60 capsule 2 09/15/19 025 Active Active Problems Problem Noted Date Diagnosed Date Cervical radiculopathy 07/01/2024 Assessment & Plan (07/01/2024 10:58 AM CDT): Offered cervical XR and referral to PT. He wants to hold off on further treatment at this time. No red flags on exam. Okay to monitor for now. Did encourage f/u with PCP given he had some other symptoms like electrical feeling in the tongue as well when this happened. Not necessarily a cervical radiculopathy. 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 Assessment & Plan (07/01/2024 11:00 AM CDT): Stable continnue to monitor. Repeat nerve block as needed. Assessment & Plan (06/09/2024 9:13 AM CDT): Stable - continue lyrica Assessment & Plan (09/30/2023 8:21 AM CDT): Significant and ongoing benefit from prior ilioinguinal and hypogastric nerve block. No intervention at this time. Lumbar disc disease with radiculopathy 3 Overview (07/21/2024): Previous Injections lumbar spine- with [facility] - Dr. Anthony Olivia 09/04/21 SI Joint Injection 11/08/21 Left L5/S1 TFESI- increased pain - 08/19/22, 04/17/23, 07/01/24 - LESI L5-S1 - >80% benefit - [...] and neural foraminal stenosis. Assessment & Plan (09/23/2024 4:21 PM CDT): Repeat LESI in 6 weeks given benefit from last and recurring sx. Assessment & Plan (07/01/2024 11:00 AM CDT): Proceed with LESI Assessment & Plan (06/09/2024 9:13 AM CDT): [...] Encounters Date Type Department Care Team Description 09/23/2024 9:45 AM CDT - 09/23/2024 11:59 PM CDT Hospital Encounter [facility] [address] [address] Tejas [place] MD Lumbar disc disease with radiculopathy (Primary Dx); Ilioinguinal neuralgia of left side Discharge Disposition: Discharge to home or self care 09/13/2024 Orders Only [facility] [address] [address] Janet Patel RN Lumbar disc disease with radiculopathy 09/13/2024 Telephone [facility] [address] [place] [address] [address] Tejas [place] MD Med Refill 09/13/2024 Telephone [facility] at the [facility] [address] [facility] Advanced [facility] [address] [place] [address] Tejas [place] MD from Last 3 Months Surgical History Surgery [...] on file 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 Gender Identity Not on file Sexual Orientation Not on file Obstetrics History Last Filed Vital Signs Vital Sign Reading Time Taken Comments Blood Pressure 132/81 09/23/2024 10:27 AM CDT Pulse 76 09/23/2024 10:27 AM CDT Temperature 36.1 C (97 F) 09/23/2024 10:27 AM CDT Respiratory Rate 15 09/23/2024 10:27 AM CDT Oxygen Saturation 97% 09/23/2024 10:27 AM CDT Inhaled Oxygen Concentration - - Weight 86.4 kg (190 lb 6.4 oz) 12/03/2023 10:07 AM CDT Height 175.3 cm (5' 9.02) 12/03/2023 10:07 AM C DT Body Mass Index 28.1 12/03/2023 10:07 AM CDT Plan of Treatment Health Maintenance Due Date Last Done Comments Colon Cancer Screening-Colonoscopy 1972 Depression Screening 1972 Hepatitis C Screening 1972 Prostate Cancer Screening-PSA 1972 Hepatitis B Screening 01/21/1990 Regular Well Visit/Exam 18-64 01/21/1990 DTaP/Tdap/Td Vaccine (1 - Tdap) 06/21/2019 06/20/2019 Zoster Vaccine (1 of 2) 01/21/2022 Influenza Vaccine (#1) 2024 Pneumococcal vaccine <65 Aged Out 017, 02/11/2016 No longer eligible based on patient's age to complete this topic Goals Goal Patient Goal Type Associated Problems Recent Progress Patient-Stated? Author CCM Chronic Pain Care Plan Chronic Care Management On track(2024 10:43 AM CDT) No Shahnaz Esparza, RN Note: Problem: Chronic Pain Goals: 1. Minimize further functional decline 2. Maximize quality of life 3. Control pain Strategies: - Activity/exercise program recommendation - Conservative stepwise pain medicine strategy with multi-disciplinary approach - Recommend healthy lifestyle strategies and compensatory methods as needed Insurance [facility] MEDICARE [facility] Address: [facility] [address] [place] [address] [facility] MEDICARE AD[facility]AGE [facility] Address: [facility] [address] [place] [address] Care Teams High School Business Teacher Relationship Specialty Start Date End Date Rajesh Moscoso DO PCP - General Internal Medicine 08/17/21 Neisha Mackenzie NP [address] [place] [address] [address] Internal Medicine 10/20/23 Tejas [place] MD [address] [place] [address] Consulting Physician Pain Management 09/30/23 Ghislaine Moreau, HELP DESK SUPERVISOR [address] [facility] [address] Business Process Consultant Infectious Diseases 12/03/23
--- OUTSIDE RECORDS SUMMARY | 2024-10-13 13:36 | XMS_ITS | Encounter Summary ---
Author Organization [facility] Address [address] [place] [address] Care Team Providers Care Signal Operator Name Role Phone Rajesh Moscoso DO Primary Care Provider [phone] Neisha Mackenzie NP Unavailable [phone] Tejas [place] MD Unavailable [phone] Reason for Visit * Reason Onset Date Comments QUESTION 06/22/2024 Encounter Details Date Type Department Care Team (Late st Contact Info) Description 06/22/2024 Telephone [facility] at the [place] [facility] [address] [facility] Advanced [facility] [address] [place], [place] [id number] Tejas [place] MD [address] [place] [address] QUESTION Social History Tobacco Use Types Packs/Day Years [...] on file 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 [address] Case Management Coordinator Infectious Diseases 12/03/23 documented as of this encounter
--- OUTSIDE RECORDS SUMMARY | 2024-10-13 13:36 | XMS_ITS | Encounter Summary ---
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
--- OUTSIDE RECORDS SUMMARY | 2024-10-13 13:36 | XMS_ITS | Encounter Summary ---
Author Organization 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
== END 2024-10-13 11:53 | disposition home or self-care (01) ==
PROVIDERS: PCP Clinical Nurse Specialist; Visit Provider Clinical Nurse Specialist
DX: M79.601 Pain in right arm (principal); M79.89 Other specified soft tissue disorders
CPT/HCPCS: 93971

== ENCOUNTER 2024-12-14 12:58 | Outpatient (CLI) | payer MEDICARE, SELFPAY ==
--- OUTSIDE RECORDS SUMMARY | 2024-08-11 04:00 | XMS_ITS ---
Author Organization [facility] Address [address] [place] [address] Care Team Providers Care Rn Mobile Name Role Phone Amara Marcelo Primary Care Provider [phone] REASON FOR VISIT 6 weeks Psych F/U & Med Refill Social History Sex Assigned At : Social History Observation Description Sex Assigned At Male Encounters Encounter Location Date Provider Diagnosis [facility] [address] [address] 08/11/2024 Amara Marcelo Plan Of Treatment Next Appt Details Provider Name:Amara rivero, 01/12/2025 09:40:00 AM, [address] [place], [address], Progress Notes * Komal OGLESBYJesusitaOB:1970 ([age] yo M)Acc No.[id number]:08/11/2024 UNLOCKED PROGRESS NOTE Patient: Vega BOOKER Provider: YUMIKO Montana :1970 A ge:54 Y S ex:Male Date:08/11/2024 Address:[address] [place], [place] [id number] Subjective: * Chief Complaints: * 1 . 6 weeks Psych F/U & Med Refill. * Medical History: Objective: * Vitals: Assessment: Plan: * Treatment: * * Electronic signature of iMan Marcelo on 12/14/2024 at 02:39 PM RELOCATION MANAGER Sign off status: Pending * Provider: YUMIKO Montana Date: 0 08/11/2024 Generated for Shilpa daley/Darren/Jose Daniel on: 02/14/2024 02:39 PM RELOCATION MANAGER
--- OUTSIDE RECORDS SUMMARY | 2024-12-14 14:39 | XMS_ITS | Clinical Summary ---
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 Gender Identity Not on file Sexual Orientation [...] of 2) 01/21/2022 COVID-19 Vaccine (1 - 2024-2 6 season) 2024 Influenza Adult (#1) 2024 Hepatitis A Vaccines Aged Out No long er eligible based on patient's age to complete this topic Meningococcal B Vaccine Aged Out No l onger eligible based on patient's age to complete this topic Meningococcal Vaccine Aged Out No svetlana adrian eligible based on patient's age to complete this topic RSV Immunizations Under 20 Months Aged Out No longer eligible b ased on patient's age to complete this topic Insurance [address] [address] Care Teams Mountain Guide Relationship Specialty Start Date End Date Rajesh Moscoso DO [address] [place] [address] PCP - General INTERNAL MEDICINE 06/19/24
--- OUTSIDE RECORDS SUMMARY | 2024-12-14 14:39 | XMS_ITS | Encounter Summary ---
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 Author [facility] Chronic Pain Care Plan Chronic Care Management [...] on filedocumented in this encounter Care Teams Clinical Practice Consultant Relationship Specialty Start Date End Date Rajesh Moscoso DO PCP - General Internal Medicine 08/17/21 Neisha Mackenzie NP [address] [place] [address] [address] Internal Medicine 10/20/23 Tejas [place] MD [facility] [address] [place] [address] Consulting Physician Pain Management 09/30/23 Ghislaine Moreau LCSW [address] [facility] [address] Mine Exploration Engineer Infectious Diseases 12/03/23 documented as of this encounter
--- OUTSIDE RECORDS SUMMARY | 2024-12-14 14:39 | XMS_ITS | Encounter Summary ---
Author Organization [facility] Address [address] [place] [address] Care Team Providers Care Seed Corn Manager Production Name Role Phone Franchesca Cervantes LUIS-GAS EXAMINER Primary Care Provider [phone] Reason for Visit * Reason Onset Date Comments Care Management 11/10/2024 Encounter Details Date Type Department Care Team (Late st Contact Info) Description 11/10/2024 Telephone [facility] - Neurology [address] [place] [address], [facility] [place] [address] Ajay Ortez MD [address] [place] [phone] Care Management Social History Tobacco Use Types Packs/Day Years [...] on file documented as of this encounter Miscellaneous Notes * Telephone Encounter - Primitivo Saavedra - 11/10/2024 1:43 PM CDT Hey, Patient called wanting to be educated on his labs that was done on 10/15/2024 and what is the stepsto take moving forward. Please advise if theres anything I can do to help. Thanks [place] documented in this encounter Plan of Treatment Upcoming Encounters Date Type Department Care Team (Late st Contact Info) Description 04/01/2025 9:00 AM HVAC ENGINEER Office Visit [facility] - Neurology [address] [facility] [place] [address] Laine Montaño MD [address] [facility] [place] [address] documented as of this encounter Visit Diagnoses Not on filedocumented in this encounter Care Teams Seed Corn Manager Production Relationship Specialty Start Date End Date Franchesca Cervantes APRN-GAS EXAMINER [facility] [place] [address] PCP - General Certified Clinical Nurse Specialist 10/10/21 documented as of this encounter
--- OUTSIDE RECORDS SUMMARY | 2024-12-14 14:40 | XMS_ITS | Clinical Summary ---
Author Organization [facility] Address [address] [place] [address] Care Team Providers Care Lmft Name Role Phone HelenFranchesca [facility] Primary Care Provider [phone] Source Comments [facility],non-owned Affiliates and Associated Physician Practices is amultiple site organization consisting of ambulatory clinics and hospital sitesin [place], [place], [place] and [place]. This disclosure is being madepursuant to the Care Everywhere program and may not contain all information available regarding this patient. 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 Irrigate half into each nostril two times/day. 60 mL 3 11/06/19 24 Active Additional Information Patient not taking.Reported on 10/15/2024 fluticasone propionate (Flonase) 50 MCG/ACT nasal spray Raymond 2 (two) sprays into each nostril once daily 16 g 11 11/13/19 24 Active Additional Information Patient not taking.Reported on 10/15/2024 QUEtiapine (SEROquel) 100 MG tablet Take 1 (one) tablet by mouth 2 times daily Active zolpidem CR (Ambien Cr) 12.5 MG tablet Take 1 (one) tablet by mouth nightly as needed for Insomnia Active ibuprofen (Motrin) 400 MG tablet Take 1 (one) tablet by mouth every 6 hours as needed for Pain Active ALPRAZolam (Xanax) 0.5 MG tablet 10/10/19 25 Active buPROPion XL 24hr (Wellbutrin-XL) 150 MG tablet Take 1 (one) tablet by mouth once daily 02/21/19 25 Active Active Problems Problem Noted Date Diagnosed Date 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 [place] [address] Ajay Ortez MD Care Management 10/21/2024 9:22 AM CDT - 10/21/2024 11:59 PM CDT Hospital Encounter [facility] EEG/EMG [address] [place] [phone] Ajay Ortez MD Discharge Disposition: Home or Self Care 10/21/2024 Travel 10/18/2024 Travel 10/15/2024 12:22 PM CDT - 10/15/2024 11:59 PM CDT Hospital Encounter [facility] LAB OP DRAW STATION [address] [place] [phone] Discharge Disposition: Home or Self Care 10/15/2024 11:00 AM CDT Office Visit [facility] - Neurology [address] [place] [phone] Laine Montaño MD Small fiber neuropathy (Primary Dx) 10/15/2024 Travel from Last 3 Months Immunizations Immunization Administration Dates Next Due PNEUMOCOCCAL [...] Sign Reading Time Taken Comments Blood Pressure 146/83 10/15/2024 10:55 AM CDT Pulse 65 10/15/2024 10:55 AM CDT Temperature 36.4 C (97.6 F) 11/16/2021 10:41 AM CDT Respiratory Rate 17 11/16/2021 10:41 AM CDT Oxygen Saturation 98% 10/15/2024 10:55 AM CDT Inhaled Oxygen Concentration - - Weight 83.9 kg (185 lb) 10/15/2024 10:55 AM CDT Height 175.3 cm (5' 9) 11/06/2023 8:07 AM CDT Body Mass Index 27.32 11/06/2023 8:07 AM CDT Plan of Treatment Upcoming Encounters Date Type Department Care Team (Late st Contact Info) Description 04/01/2025 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 Office Visit [facility] - Neurology [address] [place] [phone] Laine Montaño MD [facility] [facility] [phone] Health Maintenance Due Date Last Done Comments [...] 02/11/2016 ZOSTER VACCINE (1 of 2) 01/21/2022 DEPRESSION SCREENING 02/11/2024 MEDICARE AWV CALENDAR YEAR 2024 COVID-19 VACCINE (1 - 2023-2 5 season) 2024 INFLUENZA VACCINE (#1) 2024 SCREENING FOR DIABETES 10/16/2027 10/15/2024 DTAP/TDAP/TD VACCINES (2 - T d or [...] Procedure Name Priority Date/Time Associated Diagnosis Comments [facility] MISCELLANEOUS TEST Routine 10/15/2024 12:41 PM CDT Small fiber neuropathy SENSORY MOTOR NEUROPATHY PANEL Routine 10/15/2024 12:41 PM CDT Small fiber neuropathy IGA BLOOD Routine 10/15/2024 12:41 PM CDT Small fiber neuropathy IGM BLOOD Routine 10/15/2024 12:41 PM CDT Small fiber neuropathy IGG BLOOD Routine 10/15/2024 12:41 PM CDT Small fiber neuropathy HEMOGLOBIN A1C Routine 10/15/2024 12:41 PM CDT Small fiber neuropathy CK BLOOD Routine 10/15/2024 12:41 PM CDT Small fiber neuropathy ALDOLASE Routine 10/15/2024 12:41 PM CDT Small fiber neuropathy VITAMIN B12 Routine 10/15/2024 12:41 PM CDT Small fiber neuropathy VITAMIN B1 Routine 10/15/2024 12:41 PM CDT Small fiber neuropathy VITAMIN B6 Routine 10/15/2024 12:41 PM CDT Small fiber neuropathy ZINC BLOOD Routine 10/15/2024 12:41 PM CDT Small fiber neuropathy COPPER BLOOD Routine 10/15/2024 12:41 PM CDT Small fiber neuropathy TSH REFLEX FREE T4 Routine 10/15/2024 12 :41 PM CDT Small fiber neuropathy from Last 3 Months Results * SENSORY MOTOR NEUROPATHY PANEL ([facility]) (10/15/2024 12:41 PM CDT) Sensory Motor Neuropathy Panel See Scanned Report 11/09/2024 4:59 PM CDT [facility] Blood BLOOD SPECIMEN / Unknown Lab Venipuncture / Unknown 10/15/2024 12:41 PM CDT 10/15/2024 1:16 PM CDT Ajay Ortez MD LAB - CHEMISTRY ORDERABLES Final Result [facility] [phone] * [facility] MISCELLANEOUS TEST (10/15/2024 12:41 PM CDT) [facility] Miscellaneous Test COMMENT 10/18/2024 11:10 AM [facility]) Comment: Test Ordered: [id number] JAYSON, IFA Rfx 9 Miguel Multiplex JAYSON by IFA Rfx Titer/Pattern Negative 01 Negative <1:80 Borderline 1:80 Positive >1:80 ICAP nomenclature: AC-0 For more information about Hep-2 cell patterns use ANApatterns.org, the official website for the International Consensus on Antinuclear Antibody (JAYSON) Patterns (ICAP). Please Note: Comment 01 JAYSON Multiplex methodology was designed to detect up to 11 antibodies of the 100+ antibodies that may be detected by JAYSON IFA methodology. Other BLOOD SPECIMEN / Unknown Collection / Unknown 10/15/2024 12:41 PM CDT 10/15/2024 1:26 PM CDT Narrative [facility] ([facility]) - 10/18/2024 11:10 AM CDT Performed at: [address] [place], [place] [id number] [place], [place] [id number] Union Carpenter: Mitchell Pena PhD, Phone: [phone] Ajay Ortez MD LAB - CHEMISTRY ORDERABLES Final Result Performing Organization Address City/Va Hospital/ZIP Co de Phone Number [facility]) [address] [place] [address] [[email or web address]] * TSH REFLEX FREE T4 (10/15/2024 12:41 PM CDT) [facility] TSH 1.130 0.350 - 4.940 uIU/mL 10/15/2024 1:58 PM CDT [facility] Blood BLOOD SPECIMEN / Unknown Lab Venipuncture / Unknown 10/15/2024 12:41 PM CDT 10/15/2024 1:01 PM CDT Ajay Ortez MD LAB - CHEMISTRY ORDERABLES Final Result [address] [address], [facility] [phone] * ZINC BLOOD (10/15/2024 12:41 PM CDT) Zinc 92.9 60.0 - 120.0 ug/dL 10/17/2024 3:32 AM CDT [facility] ([facility]) Comment: INTERPRETIVE INFORMATION: Zinc, Serum or Plasma Elevated results may be due to skin or collection-related contamination, including the use of a noncertified metal-free collection/transport tube. If contamination concerns exist due to elevated levels of serum/plasma zinc, confirmation with a second specimen collected in a certified metal-free tube is recommended. Circulating zinc concentrations are dependent on albumin status and are depressed with malnutrition. Zinc may also be lowered with infection, inflammation, stress, oral contraceptives, and . Zinc may be elevated with zinc supplementation or fasting. Elevated zinc concentrations may interfere with copper absorption. This test was developed and its performance characteristics determined by [facility]. It has not been cleared or approved by the US Food and Drug Administration. This test was performed in a CLIA certified laboratory and is intended for clinical purposes. Performed By: [place] [address] Photographer Scientific: Malik Muir MD, PhD CLIA Number: [id number] Blood BLOOD SPECIMEN / Unknown Lab Venipuncture / Unknown 10/15/2024 12:41 PM CDT 10/15/2024 12:54 PM CDT Ajay Ortez MD LAB - CHEMISTRY ORDERABLES Final Result [facility]) [address] [place] [address] * VITAMIN B1 (10/15/2024 12:41 PM CDT) Vitamin B1 Whole Blood 156 70 - 180 nmol/L 10/18/2024 4:43 AM CDT [facility] ([facility]) Comment: INTERPRETIVE INFORMATION: Vitamin B1, Whole Blood This assay measures the concentration of thiamine diphosphate (TDP), the primary active form of vitamin B1. Approximately 90 percent of vitamin B1 present in whole blood is TDP. Thiamine and thiamine monophosphate, which comprise the remaining 10 percent, are not measured. This test was developed and its performance characteristics determined by [employer]. It has not been cleared or approved by the US Food and Drug Administration. This test was performed in a CLIA certified laboratory and is intended for clinical purposes. Performed By: [facility] [address] [place] [address] Photographer Scientific: Malik Muir MD, PhD CLIA Number: [id number] Blood BLOOD SPECIMEN / Unknown Lab Venipuncture / Unknown 10/15/2024 12:41 PM CDT 10/15/2024 2:19 PM CDT Ajay Oretz MD LAB - CHEMISTRY ORDERABLES Final Result Performing Organization Address [facility]/Va Hospital/[facility] Co de Phone Number [facility] ([facility]) [address] [place] [address] * (ABNORMAL) VITAMIN B6 (10/15/2024 12:41 PM CDT) Pathologist [facility] Vitamin B6 197.7(H) 20.0 - 125.0 nmol/L 10/19/2024 9:35 AM CDT [facility] ([facility]) Comment: INTERPRETIVE INFORMATION: Vitamin B6 (Pyridoxal 5-Phosphate) Pyridoxal 5'-phosphate measured in a specimen collected following an 8-hour or overnight fast accurately indicates vitamin B6 nutritional status. Non-fasting specimen concentration reflects recent vitamin intake. This test was developed and its performance characteristics determined by [employer]. It has not been cleared or approved by the US Food and Drug Administration. This test was performed in a CLIA certified laboratory and is intended for clinical purposes. Performed By: [facility] [address] [place] [address] Photographer Scientific: Malik Muir MD, PhD CLIA Number: [id number] Blood BLOOD SPECIMEN / Unknown Lab Venipuncture / Unknown 10/15/2024 12:41 PM CDT 10/15/2024 12:54 PM CDT Ajay Ortez MD LAB - CHEMISTRY ORDERABLES Final Result Performing Organization Address City/Va Hospital/ZIP Co de Phone Number [facility] ([facility]) [address] [place] [address] * HEMOGLOBIN A1C (10/15/2024 12:41 PM CDT) Pathologist [facility] Hemoglobin A1c 5.6 <=5.6 % 10/15/2024 2:50 PM CDT [facility] Estimated Average Glucose 114 mg/dL 10/15/2024 2:50 PM CDT [facility] Comment: HbA1c Interpretation: Normal : < 5.7% Pre-diabetes: 5.7-6.4% Diabetes: Equal to or greater than 6.5% Test results diagnostic of diabetes should be repeated for confirmation. Treatment target values recommended by ADA and other clinical organizations should be used to evaluate metabolic control in patients. Reference: [place] [employer], Standards of Care in Diabetes -2020 In patients 70 years and older consider HbA1c target range of 7.0-7.5% (Reference: Cristobal Flores et al. JAMDA. 2012) The Sebia assay for the measurement of HbA1c is a National Glycohemoglobin Standardization Program (NGSP) certified method. Blood BLOOD SPECIMEN / Unknown Lab Venipuncture / Unknown 10/15/2024 12:41 PM CDT 10/15/2024 1:01 PM CDT Ajay Ortez MD LAB - CHEMISTRY ORDERABLES Final Result [facility] LABORATORY [facility] [address] [place] [address], [facility] [phone] * COPPER BLOOD (10/15/2024 12:41 PM CDT) Copper 101.4 70.0 - 140.0 ug/dL 10/17/2024 3:32 AM CDT [facility] ([facility]) Comment: INTERPRETIVE INFORMATION: Copper, Serum or Plasma Elevated results may be due to skin or collection-related contamination, including the use of a noncertified metal-free collection/transport tube. If contamination concerns exist due to elevated levels of serum/plasma copper, confirmation with a second specimen collected in a certified metal-free tube is recommended. Serum copper may be elevated with infection, inflammation, stress, and copper supplementation. In females, elevated copper may also be caused by oral contraceptives and (concentrations may be elevated up to 3 times normal during the third trimester). This test was developed and its performance characteristics determined by [employer]. It has not been cleared or approved by the US Food and Drug Administration. This test was performed in a CLIA certified laboratory and is intended for clinical purposes. Performed By: [facility] [facility] [address] [place] [address] Photographer Scientific: Malik Muir MD, PhD CLIA Number: [id number] Blood BLOOD SPECIMEN / Unknown Lab Venipuncture / Unknown 10/15/2024 12:41 PM CDT 10/15/2024 12:55 PM CDT Ajay Ortez MD LAB - CHEMISTRY ORDERABLES Final Result Performing Organization Address [facility] Hospital/[facility] Co de Phone Number [facility] [employer] [facility]) [address] [place] [address] * ALDOLASE (10/15/2024 12:41 PM CDT) [facility] Aldolase 4.6 1.2 - 7.6 U/L 10/17/2024 6:08 AM CDT [facility] ([facility]) Comment: REFERENCE INTERVAL: Aldolase Access complete set of age- and/or gender-specific reference intervals for this test in the [facility] Test Directory ([employer]). Performed By: [facility] [address] [place] [address] Photographer Scientific: Malik Muir MD, PhD CLIA Number: [id number] Blood BLOOD SPECIMEN / Unknown Lab Venipuncture / Unknown 10/15/2024 12:41 PM CDT 10/15/2024 1:16 PM CDT Ajay Ortez MD LAB - CHEMISTRY ORDERABLES Final Result Performing Organization Address City/Va Hospital/ZIP Co de Phone Number [facility]) [address] [place] [address] * CK BLOOD (10/15/2024 12:41 PM CDT) [facility] CK Total 183 30 - 200 U/L 10/15/2024 1:36 PM CDT [facility] Blood BLOOD SPECIMEN / Unknown Lab Venipuncture / Unknown 10/15/2024 12:41 PM CDT 10/15/2024 1:01 PM CDT Ajay Ortez MD LAB - CHEMISTRY ORDERABLES Final Result [address] [address], [place] [phone] * (ABNORMAL) VITAMIN B12 (10/15/2024 12:41 PM CDT) Vitamin B12 1,466(H) 213 - 816 pg/mL 10/15/2024 1:58 PM CDT [facility] Blood BLOOD SPECIMEN / Unknown Lab Venipuncture / Unknown 10/15/2024 12:41 PM CDT 10/15/2024 1:01 PM CDT Ajay Ortez MD LAB - CHEMISTRY ORDERABLES Final Result Performing Organization Address [facility]/Va Hospital/ZIP Co de Phone Number [address] [address], [place] [phone] * (ABNORMAL) IGM BLOOD (10/15/2024 12:41 PM CDT) IgM 327(H) 37 - 286 mg/dL 10/15/2024 1:33 PM CDT [facility] Comment:Result obtained by negar langston. Blood BLOOD SPECIMEN / Unknown Lab Venipuncture / Unknown 10/15/2024 12:41 PM CDT 10/15/2024 12:54 PM CDT Ajay Ortez MD LAB - CHEMISTRY ORDERABLES Final Result [address] [address], [place] [phone] * IGG BLOOD (10/15/2024 12:41 PM CDT) IgG 931 767 - 1,590 mg/dL 10/15/2024 1:33 PM CDT [facility] Blood BLOOD SPECIMEN / Unknown Lab Venipuncture / Unknown 10/15/2024 12:41 PM CDT 10/15/2024 12:54 PM CDT Ajay Ortez MD LAB - CHEMISTRY ORDERABLES Final Result [address] [address], [place] [phone] * IGA BLOOD (10/15/2024 12:41 PM CDT) IgA 171 61 - 356 mg/dL 10/15/2024 1:33 PM CDT [facility] Blood BLOOD SPECIMEN / Unknown Lab Venipuncture / Unknown 10/15/2024 12:41 PM CDT 10/15/2024 12:54 PM CDT Ajay Ortez MD LAB - CHEMISTRY ORDERABLES Final Result [address] [address], [place] [phone] from Last 3 Months Insurance [facility] MANAGED MEDICARE ADV Care Teams Lmft Relationship Specialty Start Date End Date Franchesca Cervantes APRN-CHIEF MEDICAL TECHNOLOGIST [facility] [place] [address] PCP - General Certified Clinical Nurse Specialist 10/10/21
--- OUTSIDE RECORDS SUMMARY | 2024-12-14 14:40 | XMS_ITS | Encounter Summary ---
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
--- OUTSIDE RECORDS SUMMARY | 2024-12-14 14:40 | XMS_ITS | Clinical Summary ---
Author Organization [facility] Address [address] [place] [address] Care Team Providers Care Patient Care Assistant Name Role Phone Rajesh Moscoso DO Primary Care Provider Neisha Mackenzie NP Unavailable [phone] Tejas Wilson MD Unavailable [phone] Allergies Active Allergy Reactions Criticality Noted Date [...] times a day 60 capsule 2 09/15/19 25 Active cyclobenzaprine (FLEXERIL) 10 mg tablet Take 1 tablet (10 mg total) by mouth 3 (three) times a day as needed for muscle spasms 270 tablet 1 10/15/19 25 026 Active Active Problems Problem Noted Date Diagnosed [...] Encounters Date Type Department Care Team Description 11/17/2024 Telephone [facility] at [place] [address] [facility] 1st [place] [phone] Morena Bentley, TOMASA Pre Arrival 11/10/2024 Orders Only [facility] [address] [place] [address] Scanning, Provider 10/15/2024 Orders Only [facility] [address] [place] [address] Unknown, Notinfile 09/23/2024 9:45 AM CDT - 09/23/2024 11:59 PM CDT Hospital Encounter [facility] Center [place] [phone] [facility] 1st [place] [phone] Tejas Wilson MD Lumbar disc disease with radiculopathy (Primary Dx); Ilioinguinal neuralgia of left side Discharge Disposition: Discharge to home or self care 09/13/2024 Orders Only [facility] Center at [facility] [address] [facility] [address] 1st [place] [address] Janet Patel RN Lumbar disc disease with radiculopathy 09/13/2024 Telephone [facility] Pain Center at the [facility] Advanced Medicine [address] [facility] [address] [place] [address] Tejas Wilson MD Med Refill 09/13/2024 Telephone [facility] Pain Center at the [facility] [address] [facility] [address] [place] [address] Tejas Wilson MD from Last 3 Months Surgical History Surgery Date Site/Laterality Comments INGUINAL HERNIA REPAIR 02/10/2003 - 02/10/2004 Left Open ORCHIOPEXY Left APPENDECTOMY Medical History Medical History Date Comments Hernia, abdominal Arthritis Low back pain Low back pain Bone infection right jaw, sinus Family History Medical History [...] on file 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 Author CCM Chronic Pain Care Plan Chronic Care Management On track(2024 10:43 AM CDT) No Shahnaz Esparza RN Note: Problem: Chronic Pain Goals: 1. Minimize further functional decline 2. Maximize quality of life 3. Control pain Strategies: - Activity/exercise program recommendation - Conservative stepwise pain medicine strategy with multi-disciplinary approach - Recommend healthy lifestyle strategies and compensatory methods as needed Procedures Procedure Name Priority Date/Time Associated Diagnosis Comments SCAN - OTHER ORDERS 11/10/2024 4 :59 PM CDT NEUROMUSCULAR TESTING Routine 10/15/2024 12:00 AM CDT from Last 3 Months Results * SCAN - OTHER ORDERS (11/10/2024 4:59 PM CDT) us Provider Scanning Final Result * Neuromuscular Testing (10/15/2024 12:00 AM CDT) Serum 10/15/2024 10/18/2024 Narrative 11/09/2024 2:50 PM CDT Please click on the PDF link to view the report containing this result us Notinfile Unknown LAB PATHOLOGY ORDERABLES Final Result from Last 3 Months Insurance UHC MEDICARE ADVANTAGE [facility] MEDICARE ADVANTAGE Care Teams Patient Care Assistant Relationship Specialty Start Date End Date Rajesh Moscoso DO PCP - General Internal Medicine 08/17/21 Neisha Mackenzie, CELENA [facility] [address] [phone] Internal Medicine 10/20/23 Tejas Wilson MD [address] [place], [place] [phone] Consulting Physician Pain Management 09/30/23 Ghislaine Moreau, [facility] [address] [facility] [address] Sitecore Developer Infectious Diseases 12/03/23
--- OUTSIDE RECORDS SUMMARY | 2024-12-14 14:40 | XMS_ITS | Encounter Summary ---
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
--- OUTSIDE RECORDS SUMMARY | 2024-12-14 14:40 | XMS_ITS | Encounter Summary ---
Author Organization [facility] Healthcare Address [address] [place] [address] Care Team Providers Care Police Matron Name Role Phone Rajesh Moscoso DO Primary Care Provider Neisha Mackenzie NP Unavailable [phone] Tejas Wilson MD Unavailable Reason for Visit * Reason Onset Date Comments QUESTION 06/22/2024 Encounter Details Date Type Department Care Team (Late st Contact Info) Description 06/22/2024 Telephone [facility] [place] [facility] [address] [facility] [address] [place], [place] [id number] Tejas Wilson MD [address] [place] [address] QUESTION Social History Tobacco Use [...] on file 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
--- OUTSIDE RECORDS SUMMARY | 2024-12-14 14:40 | XMS_ITS | Encounter Summary ---
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
--- OUTSIDE RECORDS SUMMARY | 2024-12-14 14:40 | XMS_ITS | Encounter Summary ---
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
--- OUTSIDE RECORDS SUMMARY | 2024-12-14 14:40 | XMS_ITS | Encounter Summary ---
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 Gender Identity Not on file Sexual Orientation [...] on filedocumented in this encounter Care Teams Supervisor Body Assembly Relationship Specialty Start Date End Date Rajesh Moscoso DO PCP - General Internal Medicine 08/17/21 Neisha Mackenzie NP [facility] [address] [address] Internal Medicine 10/20/23 Tejas Wilson MD [address] [place] [address] Consulting Physician Pain Management 09/30/23 Ghislaine Moreau LCSW 620 [facility] [address] Desk Sergeant Infectious Diseases 12/03/23 documented as of this encounter
--- OUTSIDE RECORDS SUMMARY | 2024-12-14 14:40 | XMS_ITS | Encounter Summary ---
Author Organization [facility] Healthcare Address [address] [place] [address] Care Team Providers Care Blister Packaging Machine Operator Name Role Phone Rajesh Moscoso DO Primary Care Provider Neisha Mackenzie NP Unavailable [phone] Tejas Wilson MD Unavailable [phone] Reason for Visit * Reason Onset Date Comments Med Refill 08/29/2023 Encounter Details Date Type Department Care Team (Late st Contact Info) Description 08/29/2023 Telephone [facility] [address] [facility] Advanced [facility] [address] [place], [place] [id number] Jayme Sevilla MD PhD [address] [place] [address] Med Refill Social History Tobacco Use Types [...] on file 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 [address] [address] Internal Medicine 10/20/23 Tejas Wilson MD [address] [place] [address] Consulting Physician Pain Management 09/30/23 Ghislaine Moreau LCSW 620 [facility] [address] Leaf Sorter Infectious Diseases 12/03/23 documented as of this encounter
--- OUTSIDE RECORDS SUMMARY | 2024-12-14 14:40 | XMS_ITS | Patient Health Record ---
Author Organization [facility] Address [address] [place] [address] Care Team Providers Care Inspector Hairspring Name Role Phone Amara Marcelo Primary Care Provider [phone] Allergies No Known Allergies Reason For Referral No Information Medications Medication SIG (Take, Route, Frequency, Duration) Notes Start Date End Date Status Xanax 0.5 MG 1 tablet Orally kalia y; Duration: 10 days 11/10/2024 Active SEROquel 100 MG 1 tablet at bedtime Orally Once a day; Duration: 30 days Active Nicotine 7 MG/24HR 1 patch to skin Transdermal Once a day Active Wellbutrin XL 300 MG 1 tablet in the mor giovanny Orally Once a day; Duration: 30 days Active Fluticasone Propionate 50 MCG/ACT 1 spray in each nostril Nasally Twice a day Active Cyclobenzaprine HCl 10 MG 1 tablet Orall y three times a day Active Pregabalin 150 MG 1 capsule Orally twi ce a day Active Baclofen 10 MG 1 tablet Orally twic e a day Active Cetirizine HCl 10 MG 1 tablet Orally Onc e a day Active Pramipexole Dihydrochloride ER 0.375 MG 1 tablet Orally at bedtime Active Social History Sex Assigned At : [...] 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 Stress is when someone feels tense, nervous, anxious, or can\t sleep at night because their mind is troubled Very much In the past year have you sp ent more than 2 nights in a row in a usp, assisted, senior care center, or juvenile correctional facility? No Do you feel physically and e motionally safe where you currently live? Unsure In the past year, have you b een afraid of your partner or ex-partner? I have not had a partner in the past year PRAPARE Score: 6 Problems Problem Type SNOMED Code ICD Code Onset Dates Problem Status W/U Status Risk Notes Problem Anxiety (60165945) Anxiety (F41.9) Active confirmed Problem Attention deficit hyperactivity disorder (432664128) ADHD (attention deficit hyperactivity disorder) (F90.9) Active confirmed Problem Overweight (016030037) Over weight (E66.3) Active confirmed Problem Insomnia due to mental disorder (75306495) Insomnia due to mental disorder (F51.05) Active confirmed Vital Signs Heart Rate 64 /min 11/10/2024 Temperature 97 degrees Fahrenheit 11/10/2024 Respiratory Rate 16 /min 11/10/2024 Blood pressure diastolic 86 mm Hg 11/10/2024 Oximetry 98 % 11/10/2024 Height 70 inches in 11/10/2024 Blood pressure systolic 110 mm Hg 11/10/2024 Weight 186 lbs lbs 11/10/2024 BMI 26.69 kg/m2 11/10/2024 Encounters Encounter Location Date Provider Diagnosis [address] [address] 04/28/2024 Amara Marcelo Insomnia due to mental disorder F51.05 and ADHD (attention deficit hyperactivity disorder) F90.[address] [address] 05/26/2024 Amara Noeth ADHD (attention deficit hyperactivity disorder) F90.9 and Insomnia due to mental disorder F51.05 [facility] [address] [place] [address] 06/30/2024 Amara Noeth ADHD (attention deficit hyperactivity disorder) F90.9 and Insomnia due to mental disorder F51.05 [facility] [address], [place] [address] 08/25/2024 Amara Noeth ADHD (attention deficit hyperactivity disorder) F90.9 ; Insomnia due to mental disorder F51.05 and Anxiety F41.9 [facility] [address] [address] 09/29/2024 Amara Noeth Insomnia due to mental disorder F51.05 ; ADHD (attention deficit hyperactivity disorder) F90.9 and Anxiety F41.9 [facility] [address] [place] [address] 11/10/2024 Amara Noeth Over weight E66.3 ; ADHD (attention deficit hyperactivity disorder) F90.9 ; Insomnia due to mental disorder F51.05 and Anxiety F41.[address] [address] 04/26/[address] [address] 04/26/[address] [address] 05/13/[address] [address] 10/04/2024 Amara Davian [address] [address] 10/06/2024 Amarabrooks Marcelo Assessments Encounter Date Diagnosis (ICD Code) Assessment Notes Treatment Notes Treatment Clinical Notes Section Notes 06/30/2024 ADHD (attention deficit hyperactivity disorder) (ICD-10 - F90.9) cont current meds 06/30/2024 Insomnia due to mental disorder (ICD-10 - F51.05) Pt reports his increase in seroquel has improved his sleep. He did feel groggy upon waking for a few days but this is improving. He denies EPS or TD s/s. Educated for him to mx. Will cont When he gets fund he will allocate them to better pillows to help improve his sleep quality even more. 11/10/2024 Over weight (ICD-10 - E66.3) Diet and exercise reviewed with patient Consume well balanced diet, preferably low in saturated fats (solid at room temperature, such as butter, margarine, Crisco, etc) and low in sodium (<2,000mg per day). Consume plenty of fruits/vegetables, healthy grains/whole grains, unsaturated/healthy fats (liquid at room temperature, such as olive oil, sunflower seed oil, canola, vegetable, etc.). Exercise regularly - Develop an exercise routine. 30 minutes of moderate exercise (walking at a brisk pace) 5 times per week is recommended. You should work hard enough to cause a sweat but still be able to talk with others while exercising. Exercise improves overall health - improves blood pressure and blood sugar, helps control weight, reduces stress, and improves mood. Practice stress reduction techniques, such as guided imagery, journaling, aromatherapy, acupuncture/acupres sure, deep breathing, etc. Practice healthy sleep hygiene - maintain regular routine, no caffeine after 1PM, no exercise 1-2 hours prior to bedtime, keep bedroom dark and cool, no TV or electronics while in bed. Consider melatonin as needed. Consider cognitive behavioral therapy for insomnia (CBT-I). Consider/Continue therapy. Manage co-morbid conditions as advised.Follow up with PCP and/or other specialists as advised. Continue monitoring symptoms - report persistent or worsening/concernin g symptoms to the office or go to the ER. Follow up as scheduled or sooner if necessary. 09/29/2024 ADHD (attention deficit hyperactivity disorder) (ICD-10 - F90.9) continue current meds No side effects reported or noted Appears stable at this time Serotonin syndrome: This syndrome is composed a number of symptoms indicating that the person has too much serotonin, and it is potentially fatal. Symptoms include agitation, hallucinations, stiff muscles, loss of coordination, tremors, high temperature, flushing, fast heartbeat, sweating, dizziness, nausea/vomiting/tila rrhea, seizures, and coma. 09/29/2024 Insomnia due to mental disorder (ICD-10 - F51.05) Will give refill of xanax to use prn -discussed use in length continue current meds Pt on seroquel 05/26/24 last AIMs Reviewed [facility] Sleep Hygiene- Go to bed and get up at the same time every day. Keep bedroom quiet, relaxing, and at a cool temperature. Turning off electronic devices at least 30 minutes before bedtime. Avoiding large meals and alcohol before bedtime. Avoiding caffeine in the afternoon or evening. Neuroleptic malignant syndrome (NMS) is a rare [...] send pt out to be evaluated further. Exercising regularly and maintaining a healthy diet. Utilize bed for sleep Encourage patient to have all electronics often hour before bed. Encourage a bedtime routine. Diet and exercise reviewed with patient Second generation antipsychotics (SGAs) have metabolic syndrome [...] common with first generation antipsychotics) and more. Pt aware he should stop ambien as he shouldnt use both ambien and xanax for sleep.He reports the ambien doesnt work. 08/25/2024 ADHD (attention deficit hyperactivity disorder) (ICD-10 - F90.9) cont current medication Pt aware to call 911 and or 988 if having thoughts of suicide plan or intent or having homicidal ideations. Pt voiced understanding. Reviewed [facility] 08/25/2024 Insomnia due to mental disorder (ICD-10 - F51.05) started short cours of xanax at low dose to be used sparingly. Pt to try sleep hygiene first before relying on xanax. Pt v/u Benzodiazepine use is intended for short-term use, up to 3-4 weeks at most. Long-term use of benzos has been shown to lead to dependence, rebound anxiety/agitation, and withdrawal symptoms that include sleep disturbance, irritability, increased tension and anxiety, panic attacks, hand tremor, sweating, difficulty in concentration, dry retching, and nausea, some weight loss, palpitations, headache, muscular pain and stiffness, and a host of perceptual changes. Also Benzodiazepines are not recommended for long-term use due to potential dangerous side effects that include increased drowsiness, memory impairment, increased irritability, mood changes, and worsening of PTSD symptoms. Benzodiazepines can increase respiratory depression which can aggravate conditions such as sleep apnea and COPD leading to possible . They should also never be combined with alcohol, pain medications (especially opioids), or street drugs because this can lead to overdose and possible . If you are under the influence of benzodiazepines while operating a motor vehicle and are involved in a car accident you can be charged with driving while intoxicated. Benzodiazepine use can increase unsteady gait thereby increasing the risk of falls, broken bones, and concussions. Sleep Hygiene- Go to bed and get up at the same time every day. Keep bedroom quiet, relaxing, and at a cool temperature. Turning off electronic devices at least 30 minutes before bedtime. Avoiding large meals and alcohol before bedtime. Avoiding caffeine in the afternoon or evening. Exercising regularly and maintaining a healthy diet. Utilize bed for sleep Encourage patient to have all electronics often hour before bed. Encourage a bedtime routine. 05/26/2024 ADHD (attention deficit hyperactivity disorder) (ICD-10 - F90.9) cont current medication as he is having good symptom resolution and no side effects Please mx for signs and symptoms of serotonin syndrome include but not limited to: anxiety, agitation, high fever, sweating, confusion, tremors, restlessness, lack of coordination/hyperr eflexia,clonus, major changes in blood pressure, and rapid heart rate. Call 911 / seek immediate medical attention if any of these signs or symptoms and call the office to make provider aware. Pt receptive Pt aware to call 911 and or 988 if having thoughts of suicide plan or intent or having homicidal ideations. Pt voiced understanding. 04/28/2024 ADHD (attention deficit hyperactivity disorder) (ICD-10 - F90.9) cont current medication as he is having good symptom resolution and no side effects Paper RX given.Will RTC in 4 weeks. 04/28/2024 Insomnia due to mental disorder (ICD-10 - F51.05) Pt's sleep medicine provider started him on Belsomra. 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 Rec to get a preg pillow due to discomfort. Pt on seroquel - Last AIMS was on 01/28/24 and score was 1 ( missing teeth)Needs AIMS Q 6 mth or prn 05/26/2024 Insomnia due to mental disorder (ICD-10 [...] common with first generation antipsychotics) and more. 08/25/2024 Anxiety (ICD-10 - F41.9) xanax 0.5mg po once daily prn #10. Pt aware to use sparingly and to avoid self medicating wtih alcohol especaially if taking benzo. Pt v/u Benzodiazepine education - reviewed side effects which may include drowsiness, falls, MVAs, memory problems, sleep disturbance, tolerance and addiction, respiratory depression (particularly when combined with other INFORMATION CLERK BROKERAGE depressants). Possible harm; need to notify provider if planning or experiencing . 11/10/2024 ADHD (attention deficit hyperactivity disorder) (ICD-10 - F90.9) continue current meds Pt aware to call 911 and or 988 if having thoughts of suicide plan or intent or having homicidal ideations. Pt voiced understanding. Appears stable at this time Serotonin syndrome: This syndrome is composed a number of symptoms indicating that the person has too much serotonin, and it is potentially fatal. Symptoms include agitation, hallucinations, stiff muscles, loss of coordination, tremors, high temperature, flushing, fast heartbeat, sweating, dizziness, nausea/vomiting/tila rrhea, seizures, and coma. [place] 09/29/2024 Anxiety (ICD-10 - F41.9) Appears stable at this time continue current meds 11/10/2024 Insomnia due to mental disorder (ICD-10 - F51.05) continue current meds Appears stable at this time No side effects reported or noted Aims score today was 1 (missing tooth) 11/10/24 recently on steroid - hopeful to get better sleep now that he is off of it Sleep Hygiene- Go to bed and get up at the same time every day. Keep bedroom quiet, relaxing, and at a cool temperature. Turning off electronic devices at least 30 minutes before bedtime. Avoiding large meals and alcohol before bedtime. Avoiding caffeine in the afternoon or evening. Exercising regularly and maintaining a healthy diet. Utilize bed for sleep Encourage patient to have all electronics often hour before bed. Encourage a bedtime routine. 11/10/2024 Anxiety (ICD-10 - F41.9) Appears stable at this time No side effects reported or noted Discussed anxiety and ways to avoid triggers and reduce anxious states ontinue current meds- uses xanx very sparingly Benzodiazepine use is intended for short-term use, up to 3-4 weeks at most. Long-term use of benzos has been shown to lead to dependence, rebound anxiety/agitation, and withdrawal symptoms that include sleep disturbance, irritability, increased tension and anxiety, panic attacks, hand tremor, sweating, difficulty in concentration, dry retching, and nausea, some weight loss, palpitations, headache, muscular pain and stiffness, and a host of perceptual changes. Also Benzodiazepines are not recommended for long-term use due to potential dangerous side effects that include increased drowsiness, memory impairment, increased irritability, mood changes, and worsening of PTSD symptoms. Benzodiazepines can increase respiratory depression which can aggravate conditions such as sleep apnea and COPD leading to possible . They should also never be combined with alcohol, pain medications (especially opioids), or street drugs because this can lead to overdose and possible . If you are under the influence of benzodiazepines while operating a motor vehicle and are involved in a car accident you can be charged with driving while intoxicated. Benzodiazepine use can increase unsteady gait thereby increasing the risk of falls, broken bones, and concussions. 04/28/2024 Other Pt reqest help filling out some paperwork for disability on what meds I prescrie for him. Advised he drop off paperwork to facility on 05/12 and will review and he can picker packer at next appt. Pt voiced verbal understanding. Plan Of Treatment Next Appt Details Provider Name:Amara Head , 01/12/2025 09:40:00 AM, [address] [place], [address], Insurance Providers Payer Name Payer Address Payer Phone Subscriber Number Group Number Insured Name Patient Relationship to Insured Coverage Start Date Coverage End Date [facility] Attn Claims Department [address] [place] [address] [phone] [id number] [place] Self - patient is the insured 3 5 [employer] A[employer] Medicare [address] [address] [place] [address] [id number] [place] Self - patient is the insured 5 MEDICA[place] [address] [place] [address] [id number] [place] Self - patient is the insured 5 MEDICA[place] [address] [place] [address] [id number] [place] Self - patient is the insured 5 5 [facility] Claims Department [address] [place] [address] [phone] [id number] [place] Self - patient is the insured 3 5 MEDICARE PART A [address] [place] [address] [id number] [place] Self - patient is the insured 5 5 Medical (General) History Surgical History Surgery Date(Month/Year) appendectomy abdominal hernia mesh
[2024-12-14 19:19] LABS: Alanine Aminotransferase 14 U/L (6-50); Albumin Level 4.5 g/dL (3.5-5.1); Alkaline Phosphatase 44 U/L (38-126); Anion Gap 7 mmol/L (4-12); Aspartate Amino Transferase 49 U/L (17-59); Bilirubin,Total 0.6 mg/dL (0.2-1.3); Blood Urea Nitrogen 26 mg/dL (9-20); CRP < 0.5 mg/dL (<1.0); Calcium 9.1 mg/dL (8.4-10.2); Carbon Dioxide 29 mmol/L (22-30); Chloride 100 mmol/L (98-107); Estimated Glomerular Filt Rate > 60; Glucose 94 mg/dL (65-110); Potassium 4.0 mmol/L (3.4-5.0); Sodium 136 mmol/L (137-145); Total Protein 7.3 g/dL (6.3-8.2)
[2024-12-14 19:20] LABS: Hematocrit 42.6 % (42.0-52.0); Hemoglobin 14.4 g/dL (14.0-18.0); Immature Granulocyte Percent A 0.2 % (0-0.5); Lymphocytes Absolute Auto 3.67 K/mm3 (0.9-3.2); Mean Corpuscular HGB Conc 33.8 g/dl (32-36); Mean Corpuscular Hemoglobin 32.8 pg (26-34); Mean Corpuscular Volume 97.0 fl (80-100); Nucleated Red Blood Cells Absolute Auto 0.000 K/mm3 (0.0-0.012); Nucleated Red Blood Cells Perc 0.0 % (0.0-0.2); Platelet Count Result 254 k/mm3 (150-375); Red Blood Count 4.39 M/mm3 (4.6-6.20); White Blood Count 8.5 K/mm3 (4.5-10.0)
[2024-12-14 21:07] LABS: Hemoglobin A1C 5.4 % (<5.7)
[2024-12-15 14:18] LABS: EBV Nuclear Antigen Ab, IgG 536.0
[2024-12-15 14:20] LABS: ANA by IFA Rfx Titer/Pattern Negative
== END 2024-12-14 12:59 | disposition home or self-care (01) ==
PROVIDERS: PCP Clinical Nurse Specialist; Visit Provider Clinical Nurse Specialist
DX: E78.5 Hyperlipidemia, unspecified (principal); E87.1 Hypo-osmolality and hyponatremia; D64.9 Anemia, unspecified; G25.81 Restless legs syndrome; R73.01 Impaired fasting glucose; D72.829 Elevated white blood cell count, unspecified; G47.00 Insomnia, unspecified; M79.89 Other specified soft tissue disorders
CPT/HCPCS: 36415; 80053; 83036; 85025; 85652; 86038; 86140; 86430; 86664; 86665